=== PATIENT | male | born 1960 | race Caucasian/White ===

== ENCOUNTER 2020-02-28 16:05 | Inpatient (IN) | payer OTHER, SELFPAY ==
[2020-02-28] VITALS (21 sets, daily range): BP systolic 114–122; BP diastolic 68–74; PULSE 73–86; RESP 14–24; TEMP 36.7; O2SAT 99–100
--- NOTE | ~2020-02-28 | XR_ITS ---
EXAMINATION: XR chest 1V portable EXAM DATE: 03/01/2020 08:19 INDICATION: Shortness of breath. TECHNIQUE: Portable AP frontal chest x-ray was obtained. Comparison is made to prior examination from 02/28/2020. FINDINGS: There is been significant interval improvement in previously seen abnormal reticulation. No confluent consolidation, pneumothorax or pleural effusion suspected. Cardiomediastinal silhouette is normal. There are no osseous abnormalities identified. IMPRESSION: Improved pulmonary edema. Reviewed, dictated and finalized at location A. TER HELPER IMPRESSION: Improved pulmonary edema.
--- NOTE | ~2020-02-28 | XR_ITS ---
EXAMINATION: XR surgery orthopedic DATE: 02/29/2020 16:21 INDICATION: Left hip intramedullary fixation. TECHNIQUE: 4 fluoroscopic images of the proximal left femur were obtained during procedure performed by Dr. Montalvo. Radiologist was not present for the imaging or procedure. The amount of fluoroscopy t pura used during this procedure was 0.8 minutes. COMPARISON: 02/28/2020 FINDINGS: Fallopian reduction and internal fixation of the intratrochanteric fracture of the proximal left femu r with antegrade intramedullary vin, femoral neck dynamic compression screw and distal interlocking s crew fixation. Alignment appears near-anatomic. Mild osteoarthritis at the left hip. IMPRESSION: 1. Near-anatomic alignment post ORIF of an intratrochanteric fracture of the proximal left femur. Reviewed, dictated and finalized at location A. TS DOCTOR IMPRESSION: 1. Near-anatomic alignment post ORIF of an intratrochanteric fracture of the pr oximal left femur.
--- NOTE | ~2020-02-28 | CT_ITS ---
EXAMINATION: CT brain wo con DATE: 02/28/2020 18:17 INDICATION: Alcohol abuse and acute hyponatremia. Fall. TECHNIQUE: Computed tomography (CT) of the head was performed without intravenous contrast. Sagittal and coronal reconstructions were performed. The mA was adjusted according to patient size. Iterative reconstruction technique was employed. The dose-length product was 681.00 mGy-cm. COMPARISON: None FINDINGS: No fracture. No acute intracranial hemorrhage, acute infarction or abnormal extra axial fluid collect ion. There is moderate scattered white matter hypoattenuation consistent with chronic small vessel is chemic disease. Symmetric prominence of the sulci consistent with mild age-appropriate diffuse cerebr al volume loss. Ventricles are normal and symmetric. No mass/mass effect. Mild mucosal thickening the bilateral ethmoid sinuses. The orbits, paranasal sinuses and mastoid air cells are normal. Intracran ial calcified cerebral atherosclerosis is noted. IMPRESSION: 1. No fracture or acute intracranial process. 2. Age-related changes including mild diffuse volume loss and moderate scattered white matter hypoatt enuation consistent with chronic small vessel ischemic disease. Reviewed, dictated and finalized at location A. PAINTER IMPRESSION: 1. No fracture or acute intracranial process. 2. Age-related changes including mild diffuse volume loss and moderate scattere d white matter hypoattenuation consistent with chronic small vessel ischemic di sease.
--- NOTE | ~2020-02-28 | XR_ITS ---
EXAMINATION: XR chest 1V portable DATE: 02/28/2020 17:07 INDICATION: Surgical risk factor of smoking. Left hip fracture post fall. TECHNIQUE: frontal view of the chest was obtained. COMPARISON: None FINDINGS: There is a diffuse increased interstitial pattern throughout both lungs greatest in the left lower giovanny ng zone where there are also few peripheral Edwardo B-lines consistent with mild pulmonary edema. Coup le small calcified nodules in the right lower lung zone and calcified right hilar lymph nodes consist ent with old granulomatous disease. Mild linear discoid atelectasis at both lung bases. No pleural ef fusion or pneumothorax. The cardiomediastinal silhouette is normal. IMPRESSION: 1. Bilateral diffuse increased interstitial pattern consistent with mild pulmonary edema. Differentia l would include less likely pneumonia or chronic interstitial fibrosis. Reviewed, dictated and finalized at location A. E PATCH MOLDER IMPRESSION: 1. Bilateral diffuse increased interstitial pattern consistent with mild pulmon josephine edema. Differential would include less likely pneumonia or chronic intersti tial fibrosis.
--- NOTE | ~2020-02-28 | XR_ITS ---
XR hip LT 2V w AP pelvis 02/28/2020 16:54 Indication: Left hip pain after fall Procedure: 4 views left hip including AP pelvis Comparison: No prior studies for comparison. Findings: There is a displaced left femoral intertrochanteric fracture with varus angulation. No othe r fracture is identified. Pelvic rings are intact. Impression: 1: Displaced left femoral intertrochanteric fracture with varus angulation. Reviewed, dictated and finalized at location B. PATIONAL MEDICINE SPECIALIST Impression: 1: Displaced left femoral intertrochanteric fracture with varus angulation.
--- NOTE | 2020-02-28 16:43 | ED.GENADULT ---
HPI - General Adult General Chief complaint: Extremity Injury, Lower Stated complaint: Left Hip Pain Time Seen by Provider: 02/28/20 16:26 Source: RN notes reviewed History of Present Illness HPI narrative: Patient presents to emergency department from home for left hip pain. Patient states that approximate hour prior to arrival he was walking down his steps when he twisted his ankle in the last year causing him to fall onto his left hip. He states he had pain in that hip since since that time and unable to walk on the left hip denies striking his head or any other injury. Denies chest pain shortness of breath or numbness or tingling of the extremities. Patient request no pain medication at this time Related Data Home Medications Medication Instructions Recorded Confirmed No Home Medications 10/05/19 Allergies Allergy/AdvReac Type Severity Reaction Status Date / Time No Known Allergies Allergy Verified 10/05/19 08:40 Review of Systems Review of Systems: Narrative: Gen.: Denies fevers or chills Eyes: Denies eye pain or visual change ENT: Denies congestion Respiratory: Denies shortness of breath or cough CV: Denies chest pain or palpitations GI: Denies abdominal pain nausea, emesis or diarrhea Musculoskeletal: See HPI Neuro: Denies numbness, tingling, weakness or focal weakness Skin: Denies rash Except as documented, all other systems reviewed and negative [facility] Past Medical History Medical History (Updated 02/28/20 @ 18:11 by Madhu Kovasc DO) Patient denies significant medical history Social History Social History Smoking packs per day: 1 Smoking cigarettes per day: 20.0 Years smoked: 40 Smoking pack-years: 40.00 Smoking status: Current every day smoker Alcohol intake: current Drinks per week: 21 Substance use: current Substance use type: marijuana Gender identity (if verbalized by the patient): Male Agree to blood products: Yes Exam Narrative: Exam Narrative: APPEARANCE: No acute distress, nontoxic, resting in bed EYES: EOMI HEENT: Normocephalic, atraumatic, OMM Neck: Supple, no midline tenderness palpation RESPIRATORY: No respiratory distress Clear to auscultation bilaterally with no rhonchi wheezing or rales. CARDIOVASCULAR: Regular rate and rhythm without murmurs rubs or gallops. ABDOMINAL: Soft, nontender, nondistended, no rebound or guarding MUSCULOSKELETAl: Moves all extremities. No clubbing, cyanosis or edema. Tender palpation of the left lateral and anterior hip pain with any movement of the hip, no tenderness of the knee or ankle dorsalis pedis pulse 2+ bilaterally left lower extremity neurovascular intact NEURO: Awake and alert x 3. Following commands, speech normal, no focal deficits SKIN:: Warm, dry. No rashes lesions or abrasions PSYCHIATRIC: Normal affect/mood, Course Course Emergency Course: Patient states he drinks approximately 6 beers a day states he drank 4 beers earlier today Discussed Dr. Montalvo presentation work-up. Agrees with consult at this time Discussed with BRIANNA Velazquez presentation work-up agrees admission at this time discussed the sodium requests 0.9 normal saline at 100 mL an hour with repeat sodium in 3 hours and placement in imu Discussed with patient and family results of workup and diagnosis. Discussed need for admission. Patient and family understand and agree to current treatment plan Vital Signs Vital signs: Vital Signs Temperature 98.1 F 02/28/20 16:27 Pulse Rate 73 02/28/20 16:27 Respiratory Rate 14 02/28/20 16:27 Blood Pressure 116/70 02/28/20 16:27 Pulse Oximetry 99 02/28/20 16:27 Temperature 98.1 F 02/28/20 16:27 Pulse Rate 73 02/28/20 16:27 Respiratory Rate 14 02/28/20 16:27 Blood Pressure 116/70 02/28/20 16:27 Pulse Oximetry 99 02/28/20 16:27 Medical Decision Making Vital Signs Vital Signs: Vital Signs Temperature 98
--- NOTE | 2020-02-28 16:55 | PC.NURSE ---
patient here after ground level fall today outside. see triage notes. alert. oriented. no change in patient's condition since triage completed. c/o left hip pain. denies head injury or LOC. has no noted open wounds or deformities. left leg does appear shortened but not rotated. (+)PMS. assessments documented. SL inserted. patient on monitor. call light in reach.
--- NOTE | 2020-02-28 16:55 | ECG_ITS ---
Measurements Intervals [place] Rate: 82 P: 66 [place]: 245 QRS: 42 QRSD: 100 T: 45 QT: 382 QTc: 446 Interpretive Statements SINUS RHYTHM WITH FIRST DEGREE AV BLOCK EARLY PRECORDIAL R/S TRANSITION BASELINE ARTIFACT- I, III, AVL ABNORMAL ECG Electronically Signed On 02-28-2020 19:52:34 POWERHOUSE LABORER by Eduar Bond D.O.
[2020-02-28 17:39] LABS: Basophils Absolute Auto 0.1 K/mm3 (0.0-0.1); Basophils Percent Auto 1.2 % (0.2-1.2); Eosinophils Absolute Auto 0.1 K/mm3 (0-0.3); Eosinophils Percent Auto 0.5 % (0-4.4); Hematocrit 35.3 % (42.0-52.0); Immature Granulocyte Absolute 0.04 K/mm3 (0.00-0.031); Immature Granulocyte Percent A 0.4 % (0-0.5); Lymphocytes Absolute Auto 1.42 K/mm3 (0.9-3.2); Lymphocytes Percent Auto 14.8 % (18.3-44.2); Mean Corpuscular HGB Conc 36.8 g/dl (32-36); Mean Corpuscular Hemoglobin 31.9 pg (26-34); Mean Corpuscular Volume 86.7 fl (80-100); Mean Platelet Volume 8.9 fl (7.4-10.4); Monocytes Absolute Auto 0.7 K/mm3 (0.1-0.6); Neutrophils Absolute Auto 7.3 K/mm3 (1.3-6.7); Neutrophils Percent Auto 76.1 % (45.5-73.1); Platelet Count Result 308 k/mm3 (150-375); Red Blood Count 4.07 M/mm3 (4.6-6.20); Red Cell Distribution Width 11.5 % (11.5-14.5); White Blood Count 9.6 K/mm3 (4.5-10.0)
[2020-02-28 17:50] LABS: Prothrombin Time 14.1 Seconds (11.1-14.7)
[2020-02-28 17:51] LABS: Partial Thromboplastin Time 35.6 SECONDS (22.3-36.8)
[2020-02-28 17:56] LABS: Ethanol 81 mg/dL (<10)
[2020-02-28 18:01] LABS: Alanine Aminotransferase 17 U/L (4-50); Albumin Level 3.9 g/dL (3.5-5.1); Alkaline Phosphatase 83 U/L (38-126); Anion Gap 11 mmol/L (8-16); Aspartate Amino Transferase 31 U/L (17-59); Bilirubin,Total 0.5 mg/dL (0.2-1.3); Blood Urea Nitrogen 4 mg/dL (9-20); Calcium 8.6 mg/dL (8.4-10.2); Carbon Dioxide 21 mmol/L (22-30); Chloride 85 mmol/L (98-107); Estimated CRCL calculation 93 ml/min; Estimated Glomerular Filt Rate > 60; Glucose 89 mg/dL (75-110); Potassium 4.2 mmol/L (3.4-5.0); Sodium 117 mmol/L (137-145)
[2020-02-28] MEDS: MORPHINE SULFATE (*CRX) 2 MG/ML INJ IV PUSH (18:25)
[2020-02-28] MEDS: THIAMINE HCL 200 MG/2 ML VIAL 100 MG IV PUSH (19:20)
[2020-02-28] MEDS: SODIUM CHLORIDE 0.9% IV 1,000 ML 100 ML IV CONT ×2 (19:20→22:01)
--- NOTE | 2020-02-28 19:35 | PC.NURSE ---
patient medicated as ordered. patient aware he has left hip fracture. MD at bedside. aware that he will be admitted upstairs for orthopedic consult. does state that he drinks 6 beers per day . states he only had 4 today. ETOH drawn and pending. alert. oriented.
--- NOTE | 2020-02-28 19:45 | PC.NURSE ---
2nd dose of pain meds given. patient updated. waiting for bed assignment upstairs. 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 has call light in reach. (+)PMS LLE. slipper socks on per patient request. warm blankets given.
[2020-02-28] MEDS: HYDROmorphone HCL INJ (*CRX) 1 MG/ML SYR IV PUSH ×2 (19:47→22:00)
--- NOTE | 2020-02-28 21:00 | PM.IMHP ---
H&P: HPI History of Present Illness Date/Time: 02/28/20 21:00 Chief complaint: Left hip pain after fall. Narrative: Greg Leslie is a 59-year-old male smoker who presented to the emergency department earlier today via EMS for evaluation of left hip pain after falling down the steps. Not long prior to arrival he lost his footing going down a step and twisted his left ankle a bit, causing him to fall and strike his left hip on the corner of a concrete step. He had immediate pain in the hip and was unable to get himself up without help of the gentleman that was standing next to him. He was found to have a left hip fracture and is being admitted in this setting. His sodium was significantly low at 117 and with further questioning he does admit to can consuming about 6 to 7 beers each day. It sounds as though he may be consuming most of his calories in the form of alcohol. To his knowledge she has no history of hyponatremia. At the time my evaluation he has some discomfort in the left hip but it has improved after receiving Dilaudid. He denies paresthesias, skin color, and temperature changes distal to the fracture site. He also denies headache, confusion, nausea, and vomiting. Review of Systems Review of Systems: Narrative: Twelve systems were reviewed with pertinent positives and negatives as per HPI. No fever, chills, or sweats. No recent cold or flu symptoms. He denies known exposure to those positive for COVID-19. He has a chronic ?smoker's cough? which is nonproductive and unchanged. No exertional chest pain or shortness of breath. He denies orthopnea, PND, and lower extremity edema. He has never had signs or symptoms of alcohol withdrawal or withdrawal seizures. Except as documented, all other systems were reviewed and are negative. [facility] Past Medical History Medical History (Updated 02/29/20 @ 00:04 by Caroline Brewster PA-C) Alcohol abuse Tobacco abuse Surgical History Surgical History (Updated 02/28/20 @ 23:54 by Caroline Brewster PA-C) No history of previous surgery Family History Family History (Updated 02/28/20 @ 23:55 by Caroline Brewster PA-C) Other Hypertension Social History Social History (Updated 02/29/20 @ 00:02 by Caroline Brewster PA-C) Social History: Surrogate decision maker: Tony Leslie, brother. Code status: Full code. Smoking packs per day: 1.5 Smoking cigarettes per day: 30.0 Years smoked: 30 Smoking pack-years: 45.00 Smoking status: Current every day smoker Tobacco type: cigarettes Additional smoking assessment comments: Patient has smoked up to 2 packs of cigarettes a day. Alcohol intake: current Drinks per week: 42 Substance use: never Substance use type: marijuana Additional living arrangements comments: Lives in his own home in [place]. Additional occupation/education comments: [employer]. Gender identity (if verbalized by the patient): Male Spiritual care concerns: No Agree to blood products: Yes Meds Home Medications and Allergies Home Medications Medication Instructions Recorded Confirmed Type No Home Medications 10/05/19 02/28/20 History Allergies Allergy/AdvReac Type Severity Reaction Status Date / Time No Known Allergies Allergy Verified 10/05/19 08:40 Vital Signs Vital Signs - 24 hr 02/28/20 16:27 02/28/20 16:28 02/28/20 16:30 Temperature 98.1 F Pulse Rate 74 73 78 Respiratory Rate 19 23 H 20 Blood Pressure 116/70 116/70 Pulse Oximetry 100 100 100 02/28/20 16:31 02/28/20 16:54 02/28/20 17:31 Temperature Pulse Rate 74 82 81 Respiratory Rate 19 16 24 H Blood Pressure 120/68 114/68 Pulse Oximetry 100 99 100 02/28/20 17:32 02/28/20 18:04 02/28/20 18:39 Temperature Pulse Rate 86 85 74 Respiratory Rate 21 H 20 21 H Blood Pressure Pulse Oximetry 100 100 100 Exam Narrative: Exam Narrative: General: Thin male in bed in no distress. Weight: 59.1 kg.
--- NOTE | 2020-02-28 21:35 | PC.NURSE ---
report given to RN on 2nd floor.patient aware of room number and transfer upstairs.
[2020-02-28 21:40] LABS: Anion Gap 6 mmol/L (8-16); Blood Urea Nitrogen 3 mg/dL (9-20); Calcium 8.2 mg/dL (8.4-10.2); Carbon Dioxide 23 mmol/L (22-30); Chloride 89 mmol/L (98-107); Estimated CRCL calculation 110 ml/min; Estimated Glomerular Filt Rate > 60; Glucose 95 mg/dL (75-110); Potassium 4.2 mmol/L (3.4-5.0); Sodium 118 mmol/L (137-145)
--- NOTE | 2020-02-28 22:42 | ADMGEN ---
This patient, Greg Leslie, was admitted to IMU Room 206-02. Patient/family oriented to hospital policies and general routines including ID bracelet, bed and alarms, visiting hours, pain management, procedures, bathroom and other care routines, personal items, smoking policy, room service/diet, and visiting hours. Information on how to activate the Rapid Response Team has been discussed. Patient/Family are encouraged to report perceived risks to care and to ask questions if they do not understand what they are told or what they should do.
[2020-02-29] VITALS (18 sets, daily range): BP systolic 106–131; BP diastolic 64–84; PULSE 68–106; RESP 12–24; TEMP 36–37.1; O2SAT 95–100
[2020-02-29] MEDS: HYDROmorphone HCL INJ (*CRX) 1 MG/ML SYR IV PUSH ×6 (01:14→23:39)
[2020-02-29 04:48] LABS: Creatinine Urine 35.7 mg/dL
[2020-02-29 05:16] LABS: Sodium Urine Random 57 meq/L
[2020-02-29 05:41] LABS: Basophils Absolute Auto 0.1 K/mm3 (0.0-0.1); Basophils Percent Auto 0.9 % (0.2-1.2); Eosinophils Percent Auto 0.7 % (0-4.4); Hematocrit 34.6 % (42.0-52.0); Hemoglobin 12.7 g/dL (14.0-18.0); Immature Granulocyte Absolute 0.02 K/mm3 (0.00-0.031); Immature Granulocyte Percent A 0.4 % (0-0.5); Lymphocytes Absolute Auto 0.82 K/mm3 (0.9-3.2); Lymphocytes Percent Auto 14.9 % (18.3-44.2); Mean Corpuscular HGB Conc 36.7 g/dl (32-36); Mean Corpuscular Hemoglobin 31.8 pg (26-34); Mean Corpuscular Volume 86.5 fl (80-100); Mean Platelet Volume 9.4 fl (7.4-10.4); Monocytes Absolute Auto 0.6 K/mm3 (0.1-0.6); Monocytes Percent Auto 10.1 % (2.6-8.5); Platelet Count Result 299 k/mm3 (150-375); Red Cell Distribution Width 11.5 % (11.5-14.5); White Blood Count 5.5 K/mm3 (4.5-10.0)
[2020-02-29] MEDS: ONDANSETRON INJ 4 MG/2 ML VIAL IV PUSH (06:02)
[2020-02-29 06:04] LABS: INR 1.1; Prothrombin Time 14.9 Seconds (11.1-14.7)
[2020-02-29 06:05] LABS: Partial Thromboplastin Time 41.2 SECONDS (22.3-36.8)
[2020-02-29 06:09] LABS: Alanine Aminotransferase 16 U/L (4-50); Albumin Level 3.6 g/dL (3.5-5.1); Alkaline Phosphatase 93 U/L (38-126); Anion Gap 8 mmol/L (8-16); Aspartate Amino Transferase 29 U/L (17-59); Bilirubin,Total 1.1 mg/dL (0.2-1.3); Blood Urea Nitrogen 4 mg/dL (9-20); Calcium 8.7 mg/dL (8.4-10.2); Carbon Dioxide 23 mmol/L (22-30); Chloride 88 mmol/L (98-107); Estimated CRCL calculation 110 ml/min; Estimated Glomerular Filt Rate > 60; Glucose 92 mg/dL (75-110); Magnesium 1.8 mg/dL (1.6-2.3); Potassium 4.1 mmol/L (3.4-5.0); Sodium 119 mmol/L (137-145)
--- NOTE | 2020-02-29 07:27 | PM.CNOR ---
Assessment and Plan Assessment and plan (1) Displaced intertrochanteric fracture of left femur: Onset Date: 02/28/20 Qualifiers: Encounter type: initial encounter Fracture type: closed Qualified Code(s): S72.142A - Displaced intertrochanteric fracture of left femur, initial encounter for closed fracture Code(s): S72.142A - Displaced intertrochanteric fracture of left femur, initial encounter for closed fracture Status: Acute Assessment and Plan: 59-year-old gentleman who fell yesterday and sustained left hip intertrochanteric fracture. History of tobacco and alcohol use. Discussed nonoperative and operative treatment options with the patient. Risks and benefits of each as well as alternatives were reviewed. All of the patient's questions were answered. The risks of surgery reviewed including but not limited to: Neurovascular damage, wound complication, infection, blood clot, pulmonary embolus, stroke, myocardial infarction, and anesthetic risks up to and including . Continued pain and possible dysfunction were explained. Specific risks of the procedure including later recurrence of deformity. No guarantees were offered. If hardware used, discussed risk of failure/ breakage and possible need for removal. If complications occur, the patient understands the need for further treatment, possible further surgery. Patient verbalizes understanding and wishes to proceed. Low sodium noted on laboratory testing. Patient will need medical clearance. Discussed risks associated with tobacco and alcohol use. PLAN: Left hip fracture reduction with internal fixation with intramedullary hip screw. Plan to proceed when medically stable. (2) Alcohol abuse: Code(s): F10.10 - Alcohol abuse, uncomplicated Status: Acute (3) Tobacco abuse: Code(s): Z72.0 - Tobacco use Status: Acute History of Present Illness HPI Consult date: 02/29/20 Requesting physician: Madhu Kovacs DO Consult reason: fracture (Left hip) Chief complaint: Left hip pain after fall. Narrative: 59-year-old gentleman with a history of alcohol use who fell yesterday onto his left side. Evaluated in the emergency room and found to have left hip fracture. Admitted for further treatment. Complains of left hip pain. Denies head neck or back injury at the time his fall. Denies any other pain. Denies numbness or tingling in the left leg. Sharp pain whenever he moves leg. He has not had any prior problems with the hip or leg. Normally independent ambulator. He lives at home alone. Review of Systems Constitutional: Constitutional: Denies fever(s) Eyes: Eyes: Denies blurry vision ENT: Reports Normal hearing present Cardiovascular: Cardiovascular: Denies chest pain and Denies dyspnea Respiratory: Respiratory: Denies dyspnea and Denies wheezing Gastrointestinal: Gastrointestinal: Denies abdominal pain Genitourinary: Genitourinary: Denies urinary urgency Musculoskeletal: Musculoskeletal: Reports as per HPI and Denies numbness Integumentary/Breasts: Skin/Breast: Denies changing lesions and Denies sores Neurologic: Reports Normal hearing present, Denies behavioral changes, Denies confusion, Denies numbness and Denies convulsions Psychiatric: Psychiatric: Denies behavioral changes, Denies confusion and Denies hallucinations Endocrine: Endocrine: Denies heat intolerance Hematologic/Lymphatic: Hematologic/Lymphatic: Denies easy bleeding Allergic/Immunologic: Allergic/Immunologic: Denies wheezing [facility] Past Medical History Medical History Alcohol abuse Tobacco abuse Surgical History Surgical History No history of previous surgery Family History Family History Other Hypertension Social History Social History (Reviewed 02/29/20 @
[2020-02-29 07:37] LABS: Free T4 Free Thyroxine Reflex 1.22 ng/dL (0.78-2.19)
[2020-02-29 08:55] LABS: Total Triiodothyronine (T3) 0.94 NG/ML (0.97-1.69)
[2020-02-29 09:21] LABS: Sodium 119 mmol/L (137-145)
--- NOTE | 2020-02-29 09:37 | WPDANESEPP ---
Anes - Eval Pre Procedure Procedure: Operation Date: 02/29/20 14:30 Proposed Procedures p Left Intramedullary Hip Screw - James Montalvo MD Date/Time: 02/29/20 09:37 Pre Op Diagnosis: Left hip pain after fall. Patient Data Age: 59 Gender: M Height: 1.75 m Weight: 59.1 kg Last Vital Signs Temp 36.6 C 02/29/20 08:00 Pulse 91 02/29/20 08:00 Resp 12 02/29/20 08:00 BP 117/67 02/29/20 08:00 Pulse Ox 97 02/29/20 08:00 Allergies Allergy/AdvReac Type Severity Reaction Status Date / Time No Known Allergies Allergy Verified 10/05/19 08:40 Home Medications Medication Instructions Recorded Confirmed Type No Home Medications 10/05/19 02/28/20 History Laboratory Tests 02/28/20 02/28/20 02/28/20 17:28 17:28 17:28 WBC 9.6 K/mm3 K/mm3 (4.5-10.0) RBC 4.07 M/mm3 L M/mm3 (4.6-6.20) Hgb 13.0 g/dL L g/dL (14.0-18.0) Hct 35.3 % L % (42.0-52.0) MCV 86.7 fl fl (80-100) MCH 31.9 pg pg (26-34) MCHC 36.8 g/dl H g/dl (32-36) RDW 11.5 % % (11.5-14.5) Plt Count 308 k/mm3 k/mm3 (150-375) MPV 8.9 fl fl (7.4-10.4) Immature Gran % (Auto) 0.4 % % (0-0.5) Neut % (Auto) 76.1 % H % (45.5-73.1) Lymph % (Auto) 14.8 % L % (18.3-44.2) [place] % (Auto) 7.0 % % (2.6-8.5) Eos % (Auto) 0.5 % % (0-4.4) Baso % (Auto) 1.2 % % (0.2-1.2) Lymph # (Auto) 1.42 K/mm3 K/mm3 (0.9-3.2) [place] # (Auto) 0.7 K/mm3 H K/mm3 (0.1-0.6) Eos # (Auto) 0.1 K/mm3 K/mm3 (0-0.3) Baso # (Auto) 0.1 K/mm3 K/mm3 (0.0-0.1) Abs Immat Gran (auto) 0.04 K/mm3 H K/mm3 (0.00-0.031) Absolute Neuts (auto) 7.3 K/mm3 H K/mm3 (1.3-6.7) Absolute Nucleated RBC 0.0 K/mm3 K/mm3 (0.0-0.012) Nucleated RBC % 0.0 % % (0.0-0.2) PT 14.1 Seconds Seconds (11.1-14.7) INR 1.0 APTT 35.6 SECONDS SECONDS (22.3-36.8) Sodium 117 mmol/L L* mmol/L (137-145) Potassium 4.2 mmol/L mmol/L (3.4-5.0) Chloride 85 mmol/L L mmol/L (98-107) Carbon Dioxide 21 mmol/L L mmol/L (22-30) Anion Gap 11 mmol/L mmol/L (8-16) BUN 4 mg/dL L mg/dL (9-20) Creatinine 0.60 mg/dL L mg/dL (0.7-1.3) Estim Creat Clear Calc 93 ml/min ml/min Estimated GFR > 60 (59 - ) Glucose 89 mg/dL mg/dL (75-110) Serum Osmolality Calcium 8.6 mg/dL mg/dL (8.4-10.2) Magnesium Total Bilirubin 0.5 mg/dL mg/dL (0.2-1.3) AST 31 U/L U/L (17-59) ALT 17 U/L U/L (4-50) Alkaline Phosphatase 83 U/L U/L (38-126) Total Protein 7.0 g/dL g/dL (6.3-8.2) Albumin 3.9 g/dL g/dL (3.5-5.1) TSH (Reflex) Free T4 Total T3 Urine Osmolality Ur Random Sodium Urine Creatinine Ethyl Alcohol Blood Type Antibody Screen 02/28/20 02/28/20 02/28/20 17:28 17:28 21:07 WBC RBC Hgb Hct MCV MCH MCHC RDW Plt Count MPV Immature Gran % (Auto) Neut % (Auto) Lymph % (Auto) [place] % (Auto) Eos % (Auto) Baso % (Auto) Lymph # (Auto) [place] # (Auto) Eos # (Auto) Baso # (Auto) Abs Immat Gran (auto) Absolute Neuts (auto) Absolute Nucleated RBC Nucleated RBC % PT INR APTT Sodium 118 mmol/L L* mmol/L (137-145) Potassium 4.2 mmol/L mmol/L (3.4-5.0) Chloride 89 mmol/L L mmo
[2020-02-29 12:22] LABS: Sodium 121 mmol/L (137-145)
--- NOTE | 2020-02-29 13:46 | WPDHPUPDATE1 ---
History and Physical Update Update Date/Time: 02/29/20 13:46 History and Physical has been reviewed, including an updated exam of the patient. There are NO changes in the patient's condition. Risks, benefits, and alternatives have been discussed and questions answered. Patient agrees to proceed with procedure.
--- NOTE | 2020-02-29 14:24 | P.PNAN_ITS ---
Anes - Eval Final PreProcedure Day of Procedure 02/29/20 14:24 Patient weight: normal Heart: regular rate and rhythm Lungs: clear to auscultation Airway: Mallampati scale class II Neurological: alert and oriented Last oral intake: >/= 8 hours ASA classification: III Emergent: no Anesthetic plan: proceed Anesthesia type and monitoring: general ETT and standard monitoring Informed Consent: The patient's anesthetic plan and its attendant risks and b enefits were discussed with the patient/family/POA. Questions were solicited and answers provided to the satisfaction of the patient/family/POA.
--- NOTE | 2020-02-29 14:38 | PM.IMPN ---
Progress Note: A&P Assessment and Plan (1) Displaced intertrochanteric fracture of left femur: Onset Date: 02/28/20 Qualifiers: Encounter type: initial encounter Fracture type: closed Qualified Code(s): S72.142A - Displaced intertrochanteric fracture of left femur, initial encounter for closed fracture Code(s): S72.142A - Displaced intertrochanteric fracture of left femur, initial encounter for closed fracture Status: Acute Assessment and Plan: Pt is going for surgery today, for left displaced intertrochanteric fracture (2) Hyponatremia: Code(s): E87.1 - Hypo-osmolality and hyponatremia Status: Acute Assessment and Plan: Pt is on iv fluids sodium is 121, continue to monitor likely secondary to chronic alcoholism, ct head reviewed (3) Alcohol abuse: Code(s): F10.10 - Alcohol abuse, uncomplicated Status: Acute Assessment and Plan: Watch for DT, pt has ativan prn on board pt has thiamine and iv fluids (4) Tobacco abuse: Code(s): Z72.0 - Tobacco use Status: Acute Assessment and Plan: Pt has nicotine patch (5) Abnormal chest x-ray: Code(s): R93.89 - Abnormal findings on diagnostic imaging of other specified body structures Status: Acute Assessment and Plan: Rpt CXR joe Am watch for any hypoxia Subjective Date/time seen: 02/29/20 14:38 Interval history: 59-year-old male smoker who presented to the emergency department earlier today via EMS for evaluation of left hip pain after falling down the steps. pt has a history of hyponatremia, alcohol and tobacco abuse. pt should be going for Left hip fracture reduction with internal fixation with intramedullary hip screw for, Displaced intertrochanteric fracture of left hip today. Review of Systems Review of Systems: All systems reviewed & are unremarkable except as noted in HPI and below Exam Const: General: cooperative and healthy appearing; No in distress Nutritional Appearance: overweight Orientation/consciousness: oriented to person HENMT: Head: normal to inspection Resp: Effort & Inspection: no respiratory distress Auscultation: no rhonchi and no wheezes Cardio: Rate: regular rate Rhythm: regular rhythm GI: Inspection: normal to inspection GI Palp: No abdominal tenderness, No Guarding due to palpation present (GI) and No Hepatomegaly present Auscultation: normal bowel sounds Neuro: General: oriented to person Extrem: Other: shortener rotated left hip ttp over hip joint Objective Data Vital Signs Vital Signs: Vital Signs - 24 hr 02/28/20 16:27 02/28/20 16:28 02/28/20 16:30 Temperature 36.7 C Pulse Rate 74 73 78 Respiratory Rate 19 23 H 20 Blood Pressure 116/70 116/70 Pulse Oximetry 100 100 100 02/28/20 16:31 02/28/20 16:54 02/28/20 17:31 Temperature Pulse Rate 74 82 81 Respiratory Rate 19 16 24 H Blood Pressure 120/68 114/68 Pulse Oximetry 100 99 100 02/28/20 17:32 02/28/20 18:04 02/28/20 18:39 Temperature Pulse Rate 86 85 74 Respiratory Rate 21 H 20 21 H Blood Pressure Pulse Oximetry 100 100 100 02/28/20 20:11 02/28/20 20:15 02/28/20 20:16 Temperature Pulse Rate 76 76 76 Respiratory Rate 17 18 18 Blood Pressure 120/74 Pulse Oximetry 100 100 100 02/28/20 20:17 02/28/20 20:30 02/28/20 20:31 Temperature Pulse Rate 77 75 75 Respiratory Rate 17 20 19 Blood Pressure 122/72 Pulse Oximetry 100 100 100 02/28/20 20:46 02/28/20 21:00 02/28/20 21:15 Temperature Pulse Rate 79 76 74 Respiratory Rate Blood Pressure Pulse Oximetry 02/28/20 21:30 02/28/20 21:45 02/28/20 23:45 Temperature Pulse Rate 74 76 76 Respiratory Rate 19 Blood Pressure Pulse Oximetry 100 02/29/20 00:00 02/29/20 02:00 02/29/20 04:00 Temperature 36.0 C L Pulse Rate 78 72 85 Respiratory Rate 18 Blood Pressure 122/64 Pulse Oximetry 97 02/29/20 06:00 02/29/20 08:00 12/0
[2020-02-29] MEDS: TRANEXAMIC ACID 1,000 MG/10 ML AMPUL 1000 MG IV PUSH (14:50)
[2020-02-29] MEDS: LACTATED RINGERS 1,000 ML 30 ML IV CONT (15:07)
--- NOTE | 2020-02-29 15:09 | P.OP_ITS ---
Procedure Note - Detailed Date of procedure: 02/29/20 Pre-op diagnosis: Left hip pain after fall. Left hip IT fx, closed Post-op diagnosis: same Procedure performed: LT hip [facility] Description of procedure: INDICATIONS: This is an 59-year-old -man who fell sustaining a left hip intertrochanteric femur fracture. Indicated for reduction and intramedullary hip screw fixation, left hip. DESCRIPTION OF PROCEDURE: After informed consent the operative extremity was marked in the preoperative holding area. Patient received intravenous antibiotics. The patient was taken to the operative room, placed in the supine position, general anesthesia induced by the anesthesia team, and was placed on a fracture table with longitudinal traction applied to the left leg. The hip fracture was reduced to near anatomic position and verified with image intensification. A time-out was performed confirming the patient, site of the surgery and plan. The left lower extremity was prepped and draped sterilely from the knee to the iliac crest region using a ChloraPrep skin solution. The right leg was flexed out of the field. Incision was made just proximal to greater trochanter down to the subcutaneous tissues. Hemostasis controlled with electrocautery. Blunt dissection through the fascia to the tip of the greater trochanter. A starter awl was placed at the tip of the greater trochanter into the medullary canal of the femur. This was checked with image intensification and was in good position. Intramedullary guide vin positioned. A one-step hand reaming done proximally. Intramedullary canal was reamed with a 12.5 millimeter flexible reamer. Neck angle selected off of preoperative radiographs templating. 125 degree 11.5mm X 21.5cm Nail opened on the back table and assembled. This was then inserted over the guide vin to the correct depth. Guide vin removed. Lag screw was then placed with a stab incision over the lateral femur using a 10 blade knife. Blunt dissection down to the lateral side of the bone. Soft tissue protectors placed. Guide pin placed in the center center position of the femoral head and measured. millimeter x 10.5 millimeter lag screw placed to correct depth and verified with image intensification. Traction released from the leg and compression of the fracture performed with the external compression device. Proximal locking screw placed. Distal locking of the nail then performed. Stab incision made lateral distal thigh. Blunt dissection down lateral side of the femur. Soft tissue protector placed. Femur drilled from lateral to medial through the distal nail. Distal femur measured and the appropriate size screw placed. Image intensification confirmed the placement through the locking hole. Final image intensification confirmed reduction of the fracture and placement of the hardware. Wounds then thoroughly irrigated with antibiotic solution. Fascia repaired with 0 Vicryl interrupted suture. Subcutaneous tissue repaired with 00 Vicryl interrupted suture and skin repaired with je. Sterile dressings applied. Patient then awoke from anesthesia, extubated, taken to recovery room stable condition. All sponge, needle and instrument counts correct at the end the case. Implants: [employer] Natural nail 125deg, 11.5 mm diameter, 21.5cm length, 100 mm lag screw, 35mm distal locking screw Anesthesia: GETA Surgeon: James Montalvo MD Commissary Production Supervisor: 1st Commissary Production Supervisor Estimated blood loss (mL): 100 Drains: No Packing: No Pathology: none sent Complications: None Condition: stable Disposition: PACU
[2020-02-29] MEDS: ceFAZolin 2 GM/D5W 50 ML 2 GM/50 ML BAG IVPB (15:17)
--- NOTE | 2020-02-29 17:09 | SUR.PHASEI ---
PT AWAKE AND ALERT. DENIES PAIN OR NAUSEA.
--- NOTE | 2020-02-29 17:16 | SUR.PHASEI ---
PT AWAKE AND ALERT. STATES MILD PAIN AT 5/10 TO LT HIP NOW. PT STATES HE DOES NOT WANT ANY PAIN MEDICINE AT THIS TIME.
--- NOTE | 2020-02-29 17:35 | SUR.PHASEI ---
CALLED DR MONTERO. TRANSFER ORDER STATES MED/SURG. PT TO RETURN TO IMU.
[2020-02-29 18:45] LABS: Sodium 120 mmol/L (137-145)
[2020-02-29] MEDS: DOCUSATE SODIUM 100 MG CAPSULE PO (19:01)
[2020-02-29] MEDS: RIVAROXABAN 10 MG TABLET PO (19:02)
[2020-02-29] MEDS: FAMOTIDINE 20 MG TABLET PO (20:27)
[2020-02-29 21:25] LABS: Sodium 122 mmol/L (137-145)
[2020-02-29] MEDS: SODIUM CHLORIDE 0.9% IV 1,000 ML 75 ML IV CONT (22:33)
[2020-03-01] VITALS (9 sets, daily range): BP systolic 112–132; BP diastolic 63–74; PULSE 99–111; RESP 16–20; TEMP 36.1–37.2; O2SAT 97–100
[2020-03-01 00:52] LABS: Sodium 122 mmol/L (137-145)
[2020-03-01 04:19] LABS: Sodium 121 mmol/L (137-145)
[2020-03-01] MEDS: HYDROcodone/acetaminophen (*CRX) 7.5-325 MG TABLET 1 TAB PO ×4 (05:26→16:39)
[2020-03-01 06:58] LABS: Basophils Absolute Auto 0.1 K/mm3 (0.0-0.1); Basophils Percent Auto 1.5 % (0.2-1.2); Eosinophils Percent Auto 0.1 % (0-4.4); Hematocrit 34.1 % (42.0-52.0); Hemoglobin 12.3 g/dL (14.0-18.0); Immature Granulocyte Absolute 0.04 K/mm3 (0.00-0.031); Immature Granulocyte Percent A 0.5 % (0-0.5); Lymphocytes Absolute Auto 0.83 K/mm3 (0.9-3.2); Lymphocytes Percent Auto 9.4 % (18.3-44.2); Mean Corpuscular HGB Conc 36.1 g/dl (32-36); Mean Corpuscular Hemoglobin 31.9 pg (26-34); Mean Corpuscular Volume 88.6 fl (80-100); Mean Platelet Volume 9.3 fl (7.4-10.4); Monocytes Absolute Auto 0.8 K/mm3 (0.1-0.6); Monocytes Percent Auto 9.1 % (2.6-8.5); Neutrophils Percent Auto 79.4 % (45.5-73.1); Platelet Count Result 272 k/mm3 (150-375); Red Blood Count 3.85 M/mm3 (4.6-6.20); Red Cell Distribution Width 11.9 % (11.5-14.5); White Blood Count 8.8 K/mm3 (4.5-10.0)
[2020-03-01 07:09] LABS: Anion Gap 12 mmol/L (8-16); Blood Urea Nitrogen 4 mg/dL (9-20); Calcium 8.4 mg/dL (8.4-10.2); Carbon Dioxide 19 mmol/L (22-30); Chloride 91 mmol/L (98-107); Estimated CRCL calculation 93 ml/min; Estimated Glomerular Filt Rate > 60; Glucose 80 mg/dL (75-110); Potassium 3.9 mmol/L (3.4-5.0); Sodium 122 mmol/L (137-145)
[2020-03-01] MEDS: THIAMINE HCL 100 MG TABLET PO (08:51)
[2020-03-01] MEDS: DOCUSATE SODIUM 100 MG CAPSULE PO (08:51)
[2020-03-01] MEDS: FAMOTIDINE 20 MG TABLET PO ×2 (08:51→19:59)
[2020-03-01] MEDS: FOLIC ACID 1 MG TABLET PO (08:51)
[2020-03-01 09:25] LABS: Sodium 122 mmol/L (137-145)
--- NOTE | 2020-03-01 09:45 | PM.PNORT ---
Progress Note: A&P Assessment and Plan (1) Displaced intertrochanteric fracture of left femur: Onset Date: 02/28/20 Qualifiers: Encounter type: subsequent encounter Fracture type: closed Fracture healing: with routine healing Qualified Code(s): S72.142D - Displaced intertrochanteric fracture of left femur, subsequent encounter for closed fracture with routine healing Code(s): S72.142A - Displaced intertrochanteric fracture of left femur, initial encounter for closed fracture Status: Acute Assessment and Plan: postoperative day 1. Status post left hip intramedullary fixation. Patient awake and alert. Eating and voiding. Complaints of left hip pain. We have discussed the p.r.n. orders for pain medication. He is going to notify his nurse when he requires pain medicine. PT/OT with weight-bearing as tolerated left leg. DVT prophylaxis with Xarelto. Disposition based on ability with independence. Subjective Subjective Date/Time Seen: 03/01/20 09:00 Patient awake and alert. Complains of left hip and left thigh pain. Denies numbness or tingling. Able to eat and void. Exam Const: General: No in distress or confusion Orientation/consciousness: patient oriented x3 and No confusion HENMT: Head: normal to inspection, normocephalic and atraumatic Eyes: Conjunctivae: conjunctivae normal Sclera: sclerae normal Resp: Effort & Inspection: normal respiratory effort and no audible wheezes Neuro: General: patient oriented x3 and No confusion Extrem: Left lower extremity: hip/thigh ( Dressing clean dry and intact left hip. Mild swelling. No erythema. ) Details: other ( Muscle compartments soft), ankle Details: normal ROM ( able to flex and extend the ankle, negative Homans sign) and foot Details: normal to inspection, toes with normal ROM, vascular exam Details: dorsalis pedis pulse present and normal capillary refill and motor-sensory exam light-touch normal in all toes; no tenderness Psych: Affect: normal affect Objective Data Vital Signs Vital Signs: Vital Signs - 24 hr 02/29/20 10:00 02/29/20 12:50 02/29/20 16:27 Temperature 98.8 F 97.4 F L Pulse Rate 95 98 95 Pulse Rate [Left Pedal (Dorsalis Pedis)] Respiratory Rate 16 24 H Blood Pressure 122/72 131/77 Pulse Oximetry 99 100 02/29/20 16:40 02/29/20 17:07 02/29/20 17:20 Temperature 97.7 F Pulse Rate 95 94 94 Pulse Rate [Left Pedal (Dorsalis Pedis)] Respiratory Rate 18 16 18 Blood Pressure 128/84 123/82 127/75 Pulse Oximetry 100 95 97 02/29/20 17:54 02/29/20 18:00 02/29/20 20:00 Temperature 97.3 F L 97.4 F L Pulse Rate 102 H 100 100 Pulse Rate [Left Pedal (Dorsalis Pedis)] 99 Respiratory Rate 12 15 Blood Pressure 131/73 106/67 Pulse Oximetry 98 99 02/29/20 21:00 02/29/20 21:07 02/29/20 22:00 Temperature 97.2 F L 97 F L Pulse Rate 103 H 100 102 H Pulse Rate [Left Pedal (Dorsalis Pedis)] Respiratory Rate 15 15 Blood Pressure 122/70 118/75 Pulse Oximetry 99 99 99 02/29/20 23:33 03/01/20 00:00 03/01/20 01:52 Temperature 97 F L Pulse Rate 106 H 104 H 111 H Pulse Rate [Left Pedal (Dorsalis Pedis)] 104 H Respiratory Rate 16 16 Blood Pressure 112/74 112/74 Pulse Oximetry 98 98 03/01/20 04:00 03/01/20 06:00 03/01/20 08:00 Temperature 97.2 F L 96.9 F L Pulse Rate 111 H 103 H 102 H Pulse Rate [Left Pedal (Dorsalis Pedis)] 101 H Respiratory Rate 16 20 Blood Pressure 112/63 115/71 Pulse Oximetry 97 98 Intake/Output Intake/Output: Intake & Output 02/27/20 02/28/20 02/29/20 03/01/20 23:59 23:59 23:59 23:59 Intake Total 1000 1300 330 Output Total 2190 920 Balance 1000 -260 590 Meds/Results Medications: Active Medications Generic Name Dose Route Start Last Admin Trade Name Freq PRN Reason Stop Dose Admin Acetaminophen 650 mg 02/29/20 17:39 Acetaminophen 325 Mg Tablet PO Q6H PRN Mild Pain (1-3) or Fever Hydrocodone Bitart/Acetamin
[2020-03-01] MEDS: HYDROmorphone HCL INJ (*CRX) 1 MG/ML SYR IV PUSH (09:48)
--- NOTE | 2020-03-01 11:39 | PCSTNOTE ---
Please refer to the Bedside Swallow Evaluation in the EMR.
[2020-03-01] MEDS: NICOTINE (*PBKC) 21 MG PATCH 1 PATCH TRANSDERM (12:22)
[2020-03-01 12:28] LABS: Sodium 123 mmol/L (137-145)
[2020-03-01] MEDS: SODIUM CHLORIDE 0.9% IV 1,000 ML 75 ML IV CONT (13:07)
--- NOTE | 2020-03-01 14:16 | PM.IMPN ---
Progress Note: A&P Assessment and Plan (1) Displaced intertrochanteric fracture of left femur: Onset Date: 02/28/20 Qualifiers: Encounter type: subsequent encounter Fracture healing: with routine healing Fracture type: closed Qualified Code(s): S72.142D - Displaced intertrochanteric fracture of left femur, subsequent encounter for closed fracture with routine healing Code(s): S72.142A - Displaced intertrochanteric fracture of left femur, initial encounter for closed fracture Status: Acute Assessment and Plan: Pt is sp Left hip fracture reduction with internal fixation with intramedullary hip screw. POst op day 1 doing well with physical theraphy hopeful DC joe Am with home health and therapy at home. (2) Hyponatremia: Code(s): E87.1 - Hypo-osmolality and hyponatremia Status: Acute Assessment and Plan: Pt is on iv fluids sodium is 123, continue to monitor likely secondary to chronic alcoholism, ct head reviewed (3) Alcohol abuse: Code(s): F10.10 - Alcohol abuse, uncomplicated Status: Acute Assessment and Plan: Watch for DT, pt has ativan prn on board pt has thiamine and iv fluids (4) Tobacco abuse: Code(s): Z72.0 - Tobacco use Status: Acute Assessment and Plan: Pt has nicotine patch (5) Abnormal chest x-ray: Code(s): R93.89 - Abnormal findings on diagnostic imaging of other specified body structures Status: Acute Assessment and Plan: Cxr looks better today, continue care Subjective Date/time seen: 03/01/20 14:16 Interval history: 59-year-old male smoker who presented to the emergency department earlier today via EMS for evaluation of left hip pain after falling down the steps. pt has a history of hyponatremia, alcohol and tobacco abuse. pt is sp Left hip fracture reduction with internal fixation with intramedullary hip screw, post op day 1, pt is doing well at home him to medical floor Review of Systems Review of Systems: All systems reviewed & are unremarkable except as noted in HPI and below Exam Const: General: cooperative and healthy appearing; No in distress Nutritional Appearance: overweight Orientation/consciousness: oriented to person HENMT: Head: normal to inspection Resp: Effort & Inspection: no respiratory distress Auscultation: no rhonchi and no wheezes Cardio: Rate: regular rate Rhythm: regular rhythm GI: Inspection: normal to inspection Auscultation: normal bowel sounds Neuro: General: oriented to person Extrem: Other: left hip with occlusive dressing good pulses and good sensation in the left foot Objective Data Vital Signs Vital Signs: Vital Signs - 24 hr 02/29/20 16:27 02/29/20 16:40 02/29/20 17:07 Temperature 36.3 C L 36.5 C Pulse Rate 95 95 94 Pulse Rate [Left Pedal (Dorsalis Pedis)] Respiratory Rate 24 H 18 16 Blood Pressure 131/77 128/84 123/82 Pulse Oximetry 100 100 95 02/29/20 17:20 02/29/20 17:54 02/29/20 18:00 Temperature 36.3 C L Pulse Rate 94 102 H 100 Pulse Rate [Left Pedal (Dorsalis Pedis)] Respiratory Rate 18 12 Blood Pressure 127/75 131/73 Pulse Oximetry 97 98 02/29/20 20:00 02/29/20 21:00 02/29/20 21:07 Temperature 36.3 C L 36.2 C L Pulse Rate 100 103 H 100 Pulse Rate [Left Pedal (Dorsalis Pedis)] 99 Respiratory Rate 15 15 Blood Pressure 106/67 122/70 Pulse Oximetry 99 99 99 02/29/20 22:00 02/29/20 23:33 03/01/20 00:00 Temperature 36.1 C L 36.1 C L Pulse Rate 102 H 106 H 104 H Pulse Rate [Left Pedal (Dorsalis Pedis)] 104 H Respiratory Rate 15 16 16 Blood Pressure 118/75 112/74 112/74 Pulse Oximetry 99 98 98 03/01/20 01:52 03/01/20 04:00 03/01/20 06:00 Temperature 36.2 C L Pulse Rate 111 H 111 H 103 H Pulse Rate [Left Pedal (Dorsalis Pedis)] 101 H Respiratory Rate 16 Blood Pressure 112/63 Pulse Oximetry 97 03/01/20 08:00 03/01/20 10:00 03/01/20 12:00 Temperature 36.1 C L Pulse
[2020-03-01] MEDS: RIVAROXABAN 10 MG TABLET PO (16:39)
--- NOTE | 2020-03-01 17:41 | PC.NURSE ---
This patient, Greg Leslie, was transferred to [facility] on 03/01/20 at 1720. Personal belongings sent with patient. Report given to [facility]. Appropriate documentation sent with patient.
--- NOTE | 2020-03-01 17:48 | PC.NURSE ---
This patient, Greg Leslie, was received from IMU on 03/01/20 at 1748. Patient/family oriented to unit policies and routines
[2020-03-01 18:00] LABS: Sodium 120 mmol/L (137-145)
[2020-03-01 20:29] LABS: Sodium 120 mmol/L (137-145)
--- NOTE | 2020-03-01 21:24 | PC.NURSE ---
AT 2037 PT ARRIVED IN BED FROM IMU WITH IV INTACT. TELE APPLIED. BED ALARM ACTIVATED.
[2020-03-02 00:24] LABS: Sodium 121 mmol/L (137-145)
[2020-03-02] MEDS: SODIUM CHLORIDE 0.9% IV 1,000 ML 50 ML IV CONT (03:55)
[2020-03-02 05:37] VITALS: BP 135/79; PULSE 102; RESP 20; TEMP 36.6; O2SAT 100
[2020-03-02 05:38] LABS: Albumin Level 3.3 g/dL (3.5-5.1); Anion Gap 6 mmol/L (8-16); Blood Urea Nitrogen 4 mg/dL (9-20); Calcium 8.4 mg/dL (8.4-10.2); Carbon Dioxide 26 mmol/L (22-30); Chloride 90 mmol/L (98-107); Estimated CRCL calculation 93 ml/min; Estimated Glomerular Filt Rate > 60; Glucose 107 mg/dL (75-110); Phosphorus 2.9 mg/dL (2.5-4.5); Potassium 3.8 mmol/L (3.4-5.0); Sodium 122 mmol/L (137-145)
[2020-03-02] MEDS: HYDROcodone/acetaminophen (*CRX) 7.5-325 MG TABLET 1 TAB PO (07:15)
[2020-03-02] MEDS: FOLIC ACID 1 MG TABLET PO (08:25)
[2020-03-02] MEDS: DOCUSATE SODIUM 100 MG CAPSULE PO (08:26)
[2020-03-02] MEDS: NICOTINE (*PBKC) 21 MG PATCH 1 PATCH TRANSDERM (08:26)
[2020-03-02] MEDS: FAMOTIDINE 20 MG TABLET PO (08:26)
[2020-03-02] MEDS: THIAMINE HCL 100 MG TABLET PO (10:10)
--- NOTE | 2020-03-02 12:25 | PM.DS ---
DS: Admitting Diagnosis Admitting Diagnosis Admitting Diagnosis: Left hip pain after fall. DS: Discharge Diagnosis Discharge Diagnosis (1) Displaced intertrochanteric fracture of left femur: Onset Date: 02/28/20 Qualifiers: Encounter type: subsequent encounter Fracture healing: with routine healing Fracture type: closed Qualified Code(s): S72.142D - Displaced intertrochanteric fracture of left femur, subsequent encounter for closed fracture with routine healing Code(s): S72.142A - Displaced intertrochanteric fracture of left femur, initial encounter for closed fracture Status: Acute Assessment and Plan: Pt is sp Left hip fracture reduction with internal fixation with intramedullary hip screw. Post op day 2 doing well with physical therapy hopeful DC today with home health and therapy at home. (2) Hyponatremia: Code(s): E87.1 - Hypo-osmolality and hyponatremia Status: Acute Assessment and Plan: Pt is on iv fluids, sodium is 122, continue to monitor likely secondary to chronic alcoholism, ct head reviewed Pt advised to drink water and follow with PCP. (3) Alcohol abuse: Code(s): F10.10 - Alcohol abuse, uncomplicated Status: Acute Assessment and Plan: No DTs in hospital. Pt stable for discharge thiamine. (4) Tobacco abuse: Code(s): Z72.0 - Tobacco use Status: Acute Assessment and Plan: Pt has nicotine patch adviced to quit smoking (5) Abnormal chest x-ray: Code(s): R93.89 - Abnormal findings on diagnostic imaging of other specified body structures Status: Acute Assessment and Plan: Cxr looks better today, no cough no sob. pt is stable for dischrage DS: Summary Time Spent with Patient Time attestation: Total time spent providing and/or coordinating discharge services:40 minutes on day of dischrage Exam Const: General: cooperative and healthy appearing; No in distress Nutritional Appearance: overweight Orientation/consciousness: oriented to person HENMT: Head: normal to inspection Resp: Effort & Inspection: no respiratory distress Auscultation: no rhonchi and no wheezes Cardio: Rate: regular rate Rhythm: regular rhythm GI: Inspection: normal to inspection Auscultation: normal bowel sounds Neuro: General: oriented to person Extrem: Other: left hip with gauze dressing on, good pulses and good sensation in the left foot DS: Data Data Completed and Pending Labs on day of discharge: Labs from last 24 hours 03/02/20 03/02/20 03/02/20 04:53 04:53 04:53 Sodium Potassium Chloride Carbon Dioxide Anion Gap BUN Creatinine Estim Creat Clear Calc Estimated GFR Glucose Calcium Phosphorus Total Protein Pending Albumin Pending Rectf-4-Zleokaddu Pending Owhff-9-Wilkoxbmh Pending Exlp-7-Txrqsevn Pending Ryds-2-Wfupswml Pending Gamma Globulins Pending Abnorm Protein Band 1 Pending Abnorm Protein Band 3 Pending PEP Interpretation Pending Random Cortisol 12.80 Ur Random Creatinine U Random Total Protein Protein/Creatinin Ratio Urine Albumin U Jhwml-1-Rydavxmj U Xjvdj-6-Fliuneis U Beta Globulin U Gamma Globulin U Abnormal Prot Band 1 U Abnormal Prot Band 2 U Abnormal Prot Band 3 Urine PEP Interpret [place]/Lambda Ratio Pending Free [place] Light Chains Pending Free Lambda Light Chain Pending 03/02/20 03/02/20 03/02/20 04:53 03:52 00:03 Sodium 122 L 121 L Potassium 3.8 Chloride 90 L Carbon Dioxide 26 Anion Gap 6 L BUN 4 L Creatinine 0.60 L Estim Creat Clear Calc 93 Estimated GFR > 60 Glucose 107 Calcium 8.4 Phosphorus 2.9 Total Protein Albumin 3.3 L Dcmve-5-Jmeeqwwxf Cfxlm-3-Jwpcjkruv Jenv-7-Bxziwrgp Jwew-5-Zzhngnge Gamma Globulins Abnorm Protein Band 1 Abnorm Protein Band 3 PEP Interpretation
--- NOTE | 2020-03-02 13:11 | PM.CNNEP ---
Assessment and Plan Assessment and plan (1) Hyponatremia: Code(s): E87.1 - Hypo-osmolality and hyponatremia Status: Acute Assessment and Plan: unclear acutiy or chronicity (but suspect a chronic component) acute issues include pain and pain medications chronic issues include excessive alcohol intake, extensive smoking history and possible relative dehydration urine electrolytes noted TSH and cortisol okay SPE/UPE/urine + serum osmo pending asymptomatic at this time on fluid restriction follow trend of repeat sodium levels (2) Displaced intertrochanteric fracture of left femur: Onset Date: 02/28/20 Qualifiers: Encounter type: subsequent encounter Fracture healing: with routine healing Fracture type: closed Qualified Code(s): S72.142D - Displaced intertrochanteric fracture of left femur, subsequent encounter for closed fracture with routine healing Code(s): S72.142A - Displaced intertrochanteric fracture of left femur, initial encounter for closed fracture Status: Acute Assessment and Plan: s/p open reduction with internal fixation with intramedullary hip screw PT/OT as outlined Orthopedics following Discussed case with Dr. Diaz earlier today -- since otherwise asymptomatic with regard to his hyponatremia, would not be opposed to discharge assuming he has good outpatient follow-up to monitor repeat sodium levels and follow-up on pending testing. I encouraged alcohol cessation and advised regular oral/food intake as well. Will continue to follow History of Present Illness Reason for Consult Consult date: 03/02/20 Reason for consult: hyponatremia Chief Complaint Chief complaint: Left hip pain after fall. History of Present Illness Narrative: The patient is a 59-year-old male with a past medical history as outlined below who presented to the emergency department via EMS for evaluation of left hip pain after falling down some steps. The patient apparently lost his footing going down a step and twisted his left ankle a bit, causing him to fall and strike his left hip on the corner of a concrete step. He had immediate pain in the hip and was unable to get himself up without help of the gentleman that was standing next to him. EMS was called and he was subsequently brought to the ER for further evaluation. Work-up and evaluation in the ER demonstrated a left hip fracture by imaging studies which led to his hospitial admission. Orthopedic Surgery was consulted and he underwent a left hip intramedullary fixation and tolerated the procedure reasonably well. Other that expected post-operative pain, he has been doing well post-operatively in terms of PT/OT, eating, drinking...etc. Renal consultation was requested after was noted that his admission labs also were significant for hyponatremia with a sodium level of 117. he reports never being told that he had an issue or problem with his sodium level Linda denies any type of neurological symptoms with regard to headache, confusion, nausea, vomiting for numbness, tingling,. His only real symptom at this time is pain at his left hip given his recent operative intervention. It should be noted though however that he admits to significant alcohol intake anywhere from 6-7 beers a day and freely admits that he drinks more beer than eating regular food or drinking water. Currently, his sodium levels up to 122 by labs this morning and he has been receiving gentle IV fluid hydration since admission.. Review of Systems Review of Systems: Narrative: As per HPI. [facility] Past Medical History Medical History (Updated 03/01/20 @ 09:48 by James Montalvo MD) Alcohol abuse Hyponatremia Knee pain, chronic Tobacco abuse Surgical History Surgical History No history of previous surgery Family History Family History (Reviewed 02/29/20 @ 07:28 by James Murillo
[2020-03-03 06:36] LABS: Osmolality, Urine 233 mOsm/kg (50-1200)
[2020-03-06 17:28] LABS: Kappa\\Lambda Light Chains 1.11 (0.26-1.65)
[2020-03-06 22:41] LABS: Albumin 3.1 g/dL (3.8-4.8); Alpha 1 Globulin 0.5 g/dL (0.2-0.3); Alpha 2 Globulin 0.8 g/dL (0.5-0.9); Beta 1 Globulin 0.4 g/dL (0.4-0.6); Gamma Globulin 1.1 g/dL (0.8-1.7); Protein, Total 6.1 g/dL (6.1-8.1)
[2020-03-07 16:44] LABS: Creatinine, Random Urine 83 mg/dL (20-320); Total Protein/Creatinine Ratio 193 mg/g creat (22-128)
== END 2020-03-02 16:00 | disposition home health service (06) | DRG 481 ==
LOC: ANHED 18:11 → ANHIMU 19:46 → ANH2MED 03-01 17:46
PROVIDERS: Family Medicine; Internal Medicine Nephrology; Nurse Practitioner; Orthopaedic Surgery; Physician Assistant; Admitting Provider Family Medicine; Emergency Provider Emergency Medicine; PCP Internal Medicine; Visit Provider Family Medicine
PROC: 0QS736Z Reposition Left Upper Femur with Intramedullary Internal Fixation Device, Percutaneous Approach (ICD-10-PCS; CPT 27245; principal; 2020-02-29 14:30)
DX: S72.142A Displaced intertrochanteric fracture of left femur, initial encounter for closed fracture (principal); E87.1 Hypo-osmolality and hyponatremia; W10.9XXA Fall (on) (from) unspecified stairs and steps, initial encounter; R93.89 Abnormal findings on diagnostic imaging of other specified body structures; F17.210 Nicotine dependence, cigarettes, uncomplicated; F10.10 Alcohol abuse, uncomplicated; Z28.21 Immunization not carried out because of patient refusal
CPT/HCPCS: 36415; 70450; 71045; 73502; 80048; 80053; 80069; 80307; 82533; 82570; 83735; 83883; 83930; 83935; 84155; 84156; 84165; 84166; 84295; 84300; 84439; 84443; 84480; 85025; 85610; 85730; 86850; 86900; 86901; 92610; 93005; 96361; 96374; 96375; 96376; 97110; 97116; 97161; 97165; 97530; 97535; 99285; A9270; C1713; G0378; J0330; J0690; J1170; J2250; J2270; J2370; J2405; J2704; J3010; J3411; J7030; J7120

== ENCOUNTER → 2021-02-15 09:00 | Outpatient (CLI) | payer OTHER, SELFPAY ==
--- NOTE | ~2021-02-15 | MR_ITS ---
EXAMINATION: MR knee LT wo con DATE: 02/15/2021 09:46 INDICATION: Left knee pain TECHNIQUE: Magnetic resonance imaging (MRI) of the left knee was performed without intravenous contra st. Sequences included coronal PD-weighted FSE, coronal PD-weighted FS FSE, sagittal T2-weighted FSE , sagittal PD-weighted FS FSE and axial PD weighted fat saturated FSE. COMPARISON: Left knee radiographs dated 05/28/2020 FINDINGS: Medial compartment: Medial meniscus is normal. Partial-thickness chondral fissure without degenerative subchondral change s along the lateral margin of the central weightbearing medial femoral condyle. Lateral compartment: Lateral meniscus is normal. Small region of deep chondral fissuring with minimal subarticular signal change at the posterior margin of the lateral tibial plateau. Patellofemoral compartment: Deep chondral ulceration with underlying marrow signal change at the cephalad aspect of the apical ri dge. There is additional partial thickness chondral fissuring involving greater than 50% the cartilag e thickness at the central to inferior aspect of the medial and lateral patellar facets. Small region of shallow chondral fissuring without degenerative subchondral changes at the lateral aspect of the medial trochlea. Ligaments and tendons: Anterior and posterior cruciate ligaments are normal. The medial collateral ligament and fibular montserrat ateral ligament complex are normal. The extensor mechanism is normal. The visualized medial and later al hamstring tendons as well as the iliotibial band are normal. Fluid: Physiologic amount of fluid in the joint space. No loose osteochondral bodies identified. Osseous/other: There is diffuse subtle increased signal throughout the cortex in the metaphyseal regions of the dist al femur and proximal tibia with linear subcortical sclerosis and with a horizontal reinforcement arley es evident on the prior radiograph which can be seen with osteopenia/osteoporosis. There is marrow ed drake surrounding a couple small approximately 5 mm lobular regions of hyperintense fat saturating fat in the anterior metaphyseal region of the distal femur suspicious for small bone infarcts. There are couple ill-defined regions of additional nonspecific marrow edema in the proximal metaphyseal region of the tibia. No fracture or other pathologic marrow replacing process. IMPRESSION: 1. Cortical and marrow signal changes in the distal femur and proximal tibia suggestive of osteopenia /osteoporosis with small region likely bone infarct in the distal femur. 2. Mild osteoarthritis with small regions of moderate grade chondral malacia in the medial compartmen t and moderate and high-grade chondromalacia at the patellofemoral compartment Reviewed, dictated and finalized at location A. [employer] IMPRESSION: 1. Cortical and marrow signal changes in the distal femur and proximal tibia cabello ggestive of osteopenia/osteoporosis with small region likely bone infarct in th e distal femur. 2. Mild osteoarthritis with small regions of moderate grade chondral malacia in the medial compartment and moderate and high-grade chondromalacia at the burger lofemoral compartment
== END ==
PROVIDERS: Visit Provider Nurse Practitioner Family
DX: M25.562 Pain in left knee (principal); M17.12 Unilateral primary osteoarthritis, left knee; M94.262 Chondromalacia, left knee
CPT/HCPCS: 73721

== ENCOUNTER 2021-05-26 12:52 | Emergency (ER) | payer OTHER, SELFPAY ==
--- NOTE | ~2021-05-26 | CT_ITS ---
EXAMINATION: CT brain wo con DATE: 05/26/2021 14:00 INDICATION: Head injury. Loss of consciousness. TECHNIQUE: Computed tomography (CT) of the head was performed without intravenous contrast. The mA wa s adjusted according to patient size. Iterative reconstruction technique was employed. The dose-lengt h product was 605.33 mGy-cm. COMPARISON: Head CT 02/28/2020 FINDINGS: There are scattered areas of low attenuation in the cerebral white matter. There is no intr acranial hemorrhage, acute infarction, or abnormal intracranial mass lesion. The ventricles are bob l in size. There is mucosal thickening in the paranasal sinuses. The orbits are normal. The mastoid a ir cells are normal. IMPRESSION: 1. Stable moderate nonspecific cerebral white matter disease, which likely represents chronic small v essel ischemic disease. Reviewed, dictated and finalized at location A. HER AIDE IMPRESSION: 1. Stable moderate nonspecific cerebral white matter disease, which likely repr esents chronic small vessel ischemic disease.
--- NOTE | ~2021-05-26 | CT_ITS ---
EXAMINATION: CT cervical spine wo con DATE: 05/26/2021 14:00 INDICATION: Head injury. TECHNIQUE: Computed tomography (CT) of the cervical spine was performed without intravenous contrast. Automated exposure control and iterative reconstruction technique were employed. The dose-length pro duct was 272.14 mGy-cm. COMPARISON: None FINDINGS: The visualized portions of the lung apices demonstrate emphysema. There is 3 degrees dextro curvature of cervical spine. There is mild kyphosis of cervical spine. Vertebral body heights are nor mal. There is mildly decreased disc height from C3-C4 through C6-C7. The following disc levels are sp ecifically discussed: C2-C3: There is no uncovertebral joint osteoarthritis. There is mild left facet joint osteoarthritis. There is no neural foraminal stenosis. There is no central canal stenosis. C3-C4: There is severe bilateral uncovertebral joint osteoarthritis. There is mild bilateral facet roman int osteoarthritis. There is mild right and moderate left neural foraminal stenosis. There is mild ce ntral canal stenosis. C4-C5: There is severe bilateral uncovertebral joint osteoarthritis. There is moderate left facet max nt osteoarthritis. There is mild bilateral neural foraminal stenosis. There is mild central canal judy nosis. C5-C6: There is moderate right and severe left uncovertebral joint osteoarthritis. There is mild bila teral facet joint osteoarthritis. There is mild left neural foraminal stenosis. There is mild central canal stenosis. C6-C7: There is mild right and severe left uncovertebral joint osteoarthritis. There is mild bilatera l facet joint osteoarthritis. There is mild left neural foraminal stenosis. There is mild central can al stenosis. C7-T1: There is no uncovertebral joint osteoarthritis. There is severe bilateral facet joint osteoart hritis. There is no neural foraminal stenosis. There is no central canal stenosis. IMPRESSION: 1. No fracture. 2. Moderate cervical spondylosis. Reviewed, dictated and finalized at location A. D PROJECT MANAGER
[2021-05-26 12:54] VITALS: BP 153/88; PULSE 64; RESP 18; TEMP 36.1; O2SAT 100
--- NOTE | 2021-05-26 13:39 | ED.HEATRA ---
HPI - Head Injury General Chief complaint: Head Injury Stated complaint: head trauma Time Seen by Provider: 05/26/21 13:35 History of Present Illness HPI Narrative: 60-year-old male presents to the emergency room status post fall. Patient states that he tripped and fell in the kitchen, striking his head on the refrigerator. Unknown LOC. Presently denies any dizziness lightheadedness memory or concentration issues. Denies nausea vomiting. Denies visual or hearing changes. Denies neck pain. patient is not on anticoagulants Related Data Home Medications Medication Instructions Recorded Confirmed No Home Medications 05/26/21 05/26/21 Allergies Allergy/AdvReac Type Severity Reaction Status Date / Time No Known Allergies Allergy Verified 05/26/21 13:27 Review of Systems Review of Systems: CONSTITUTIONAL: Denies fever, chills, or sweats. EYES: Denies visual changes, redness, or discharge. ENT: Denies rhinorrhea, congestion, sore throat, or otalgia. CARDIOVASCULAR: Denies chest pain, palpitations, or edema. RESPIRATORY: Denies cough or dyspnea. GASTROINTESTINAL: Denies abdominal pain, nausea, vomiting, or diarrhea. GENITOURINARY: Denies dysuria or hematuria. SKIN: Reports abrasion to forehead. MUSCULOSKELETAL: Denies back pain, joint pain, or myalgia. NEUROLOGIC: Denies headache, numbness, dizziness, or weakness. PSYCHIATRIC: Denies anxiety or depression. [facility] Past Medical History Medical History Alcohol abuse Arthralgia of knee, left Arthritis of knee, left Chondromalacia, patella Hyponatremia Knee pain, chronic Left knee DJD Left knee pain Right knee DJD Tear of medial meniscus of left knee Tobacco abuse Surgical History Surgical History No history of previous surgery Family History Family History Other Hypertension Social History Social History Social History: Surrogate decision maker: Tony Leslie, brother. Code status: Full code. Smoking packs per day: 1.5 Smoking cigarettes per day: 30.0 Years smoked: 30 Smoking pack-years: 45.00 Tobacco type: cigarettes Additional smoking assessment comments: Patient has smoked up to 2 packs of cigarettes a day. Alcohol intake: current Drinks per week: 42 Substance use: never Substance use type: marijuana Additional living arrangements comments: Lives in his own home in [place]. Additional occupation/education comments: [employer]. Gender identity (if verbalized by the patient): Male Sexual Orientation (if Verbalized by the Patient): Straight or Heterosexual Spiritual care concerns: No Agree to blood products: Yes Exam Narrative: GENERAL: Well-appearing, well-nourished, and in no acute distress. HEAD: Normocephalic, atraumatic. EYES: PERRLA and EOMI. ENT: Nares clear, no rhinorrhea or epistaxis. Mucous membranes moist. Oropharynx without tonsillar hypertrophy exudate or other lesions. Bilateral TMs pearly chou nonbulging NECK: Supple. No adenopathy or masses. No carotid bruits or JVD CHEST: Clear to auscultation. No respiratory distress. No wheezes rales or rhonchi HEART: Regular rate and rhythm. No murmur heard. Normal peripheral pulses. ABDOMEN: Soft, nontender, nondistended, normal active bowel sounds. EXTREMITIES: Normal range of motion. No edema. SKIN: Warm, dry, no rash. 2 abrasions to forehead NEURO: No focal deficits. Alert and oriented x3. PSYCH: Normal mood and affect. Course Vital Signs Vital signs: Vital Signs Temperature 36.1 C L 05/26/21 12:54 Pulse Rate 64 05/26/21 12:54 Respiratory Rate 18 05/26/21 12:54 Blood Pressure 153/88 H 05/26/21 12:54 Pulse Oximetry 100 05/26/21 12:54 Temperature 36.1 C L 05/26/21 12:54 Pulse Rate 92
[2021-05-26 14:34] VITALS: BP 133/95; PULSE 92; RESP 16; O2SAT 100
== END 2021-05-26 14:40 | disposition home or self-care (01) ==
PROVIDERS: Emergency Provider Nurse Practitioner Family; PCP Internal Medicine
DX: S09.90XA Unspecified injury of head, initial encounter (principal); M22.40 Chondromalacia patellae, unspecified knee; M17.0 Bilateral primary osteoarthritis of knee; F17.210 Nicotine dependence, cigarettes, uncomplicated; W01.198A Fall on same level from slipping, tripping and stumbling with subsequent striking against other object, initial encounter
CPT/HCPCS: 70450; 72125; 99284

== ENCOUNTER 2021-05-28 11:58 | Observation (INO) | payer OTHER, SELFPAY ==
[2021-05-28] VITALS (21 sets, daily range): BP systolic 121–144; BP diastolic 78–93; PULSE 86–103; RESP 16–26; TEMP 36.8–37; O2SAT 97–100; BMI 22.1
--- NOTE | ~2021-05-28 | CT_ITS ---
EXAMINATION: CT diagnostic chest wo con DATE: 05/28/2021 12:58 INDICATION: Lung mass. Chest pain. TECHNIQUE: Computed tomography (CT) of the chest was performed without intravenous contrast. Automate d exposure control and iterative reconstruction technique were employed. Exam dose: 157.63 mGy-cm to sheyla exam DLP. COMPARISON: None FINDINGS: There is a 2.6 x 4.1 cm irregular spiculated left upper lobe mass consistent with lung carcinoma. Approximately 7 x 12 mm spiculated mass is noted in the right upper lobe. Up to 16 x 25 mm precarinal lymph node 7 x 13 mm aortopulmonary window node 6 x 9 mm prevascular lymph node. There is moderately severe bullous emphysema. Normal heart size. Coronary artery calcifications. No pericardial effusion. No thoracic aortic aneurysm. Normal morphology of the adrenal glands. Severe degenerative disc disease in lower cervical spine. No suspicious osteolytic or osteoblastic le sions. IMPRESSION: 2.6 x 4.1 cm left upper lobe carcinoma 7 x 12 mm speculated mass in the right upper lobe; consider PET/CT imaging Mediastinal lymphadenopathy, likely metastatic Moderately severe bullous emphysema Reviewed, dictated and finalized at Location [facility]. Reviewed, dictated and finalized at location A. T WORKER
--- NOTE | ~2021-05-28 | XR_ITS ---
EXAMINATION: XR chest 2V DATE: 05/28/2021 12:31 INDICATION: Epigastric abdominal pain. TECHNIQUE: Frontal and lateral views of the chest were obtained. COMPARISON: Chest single view 03/01/2020 FINDINGS: There is a mass in left upper lobe. There are lucencies and chronic interstitial opacities in the lungs, likely emphysema. No pleural effusion or pneumothorax. The heart size is normal. IMPRESSION: 1. Mass in left upper lobe suspicious for primary bronchogenic carcinoma. Chest CT with contrast is r ecommended. I called this result to Dr. Neal. 2. Emphysema. Reviewed, dictated and finalized at location A. ER IMPRESSION: 1. Mass in left upper lobe suspicious for primary bronchogenic carcinoma. Chest CT with contrast is recommended. I called this result to Dr. Neal. 2. Emphysema.
--- NOTE | ~2021-05-28 | CT_ITS ---
EXAMINATION: CT brain wo con DATE: 05/28/2021 12:40 INDICATION: Dizziness. TECHNIQUE: Computed tomography (CT) of the head was performed without intravenous contrast. The mA wa s adjusted according to patient size. Iterative reconstruction technique was employed. The dose-lengt h product was 605.33 mGy-cm. COMPARISON: Head CT 05/26/2021 FINDINGS: There are scattered areas of low attenuation in the cerebral white matter. There is no intr acranial hemorrhage, acute infarction, or abnormal intracranial mass lesion. The ventricles are bob l in size. The orbits are normal. There is mucosal thickening in the paranasal sinuses. The mastoid a ir cells are normal. IMPRESSION: 1. Stable moderate nonspecific cerebral white matter disease, which likely represents chronic small v essel ischemic disease. Reviewed, dictated and finalized at location A. SPECIALIST IMPRESSION: 1. Stable moderate nonspecific cerebral white matter disease, which likely repr esents chronic small vessel ischemic disease.
--- NOTE | ~2021-05-28 | MR_ITS ---
EXAMINATION: MR brain/brain stem wo con DATE: 05/29/2021 08:28 INDICATION: Lung cancer. Hyponatremia. TECHNIQUE: Magnetic resonance imaging (MRI) of the brain and brainstem was performed without intraven ous contrast. Sequences included sagittal and axial T1-weighted FSE, axial diffusion-weighted FS EPI, axial T2*-weighted GRE, axial T2-weighted FLAIR Propeller, sagittal FLAIR, and axial T2-weighted Pro peller. Apparent diffusion coefficient (ADC) maps were created. COMPARISON: Head CT 05/28/2021 FINDINGS: There are scattered areas of nonspecific increased T2-weighted signal intensity in the cere bral white matter and crystal. There is no intracranial hemorrhage, acute infarction, or abnormal intrac ranial mass lesion. The ventricles are normal in size. The paranasal sinuses are clear. The orbits ar e normal. There is mild mucosal thickening in the paranasal sinuses. IMPRESSION: 1. Moderate nonspecific cerebral white matter disease and pontine disease, which likely represents ch ronic small vessel ischemic disease. Reviewed, dictated and finalized at location A. TING SALES REPRESENTATIVE IMPRESSION: 1. Moderate nonspecific cerebral white matter disease and pontine disease, whic h likely represents chronic small vessel ischemic disease.
--- NOTE | 2021-05-28 12:02 | ECG_ITS ---
Measurements Intervals [place] Rate: 95 P: 57 ID: 230 QRS: 9 QRSD: 102 T: 44 QT: 337 QTc: 424 Interpretive Statements SINUS RHYTHM WITH FIRST DEGREE AV BLOCK ABNORMAL ECG COMPARED TO ECG 02/28/2020 18:07:20 NO SIGNIFICANT CHANGES Electronically Signed On 05-28-2021 14:07:40 UX ARCHITECT by Kip Lockwood M.D.
[2021-05-28 12:58] LABS: Basophils Absolute Auto 0.1 K/mm3 (0.0-0.1); Eosinophils Absolute Auto 0.1 K/mm3 (0-0.3); Eosinophils Percent Auto 1.4 % (0-4.4); Hematocrit 42.3 % (42.0-52.0); Hemoglobin 15.2 g/dL (14.0-18.0); Immature Granulocyte Absolute 0.06 K/mm3 (0.00-0.031); Immature Granulocyte Percent A 0.6 % (0-0.5); Lymphocytes Absolute Auto 1.69 K/mm3 (0.9-3.2); Lymphocytes Percent Auto 16.7 % (18.3-44.2); Mean Corpuscular HGB Conc 35.9 g/dl (32-36); Mean Corpuscular Hemoglobin 32.4 pg (26-34); Mean Corpuscular Volume 90.2 fl (80-100); Mean Platelet Volume 8.8 fl (7.4-10.4); Monocytes Percent Auto 9.9 % (2.6-8.5); Neutrophils Absolute Auto 7.1 K/mm3 (1.3-6.7); Neutrophils Percent Auto 70.4 % (45.5-73.1); Platelet Count Result 336 k/mm3 (150-375); Red Blood Count 4.69 M/mm3 (4.6-6.20); Red Cell Distribution Width 11.6 % (11.5-14.5); White Blood Count 10.1 K/mm3 (4.5-10.0)
--- NOTE | 2021-05-28 13:02 | ED.GENADULT ---
HPI - General Adult General Chief complaint: Chest Pain Stated complaint: heartburn Time Seen by Provider: 05/28/21 12:14 History of Present Illness HPI narrative: Patient is a 60-year-old male who presents ER with what he reports is acid reflux. Reports she has been having some epigastric discomfort since 4 AM with burning that goes up into his chest. Chest discomfort on left side. No exertional component. Has tried no medications. Denies nausea or vomiting. No fevers or chills or sweats. Reports regular tobacco and EtOH. Patient also reports that couple days ago he slipped and fell on ice striking his forehead. He reports he had loss of consciousness for couple of minutes. He is not on any blood thinners. He does report dizziness. It is not vertiginous. Reports otherwise healthy. Has not seen his PCP in 1 year. Related Data Home Medications Medication Instructions Recorded Confirmed No Home Medications 05/26/21 05/26/21 Allergies Allergy/AdvReac Type Severity Reaction Status Date / Time No Known Allergies Allergy Verified 05/28/21 12:26 Review of Systems Review of Systems: All systems reviewed & are unremarkable except as noted in HPI and below Constitutional: Constitutional: Denies chills, Denies fever(s) and Denies weakness Eyes: Eyes: Denies change in vision and Denies photophobia ENT: Reports dizziness, Denies nasal congestion and Denies sore throat Cardiovascular: Cardiovascular: Reports chest pain, Denies rapid heart rate and Denies radiating jaw, neck or arm pain Respiratory: Respiratory: Denies cough, Denies dyspnea and Denies wheezing Gastrointestinal: Gastrointestinal: Reports abdominal pain, Reports heartburn, Denies nausea and Denies vomiting Musculoskeletal: Musculoskeletal: Denies back pain and Denies muscle cramps Neurologic: Reports syncope, Denies headache(s), Denies focal weakness and Denies numbness PMFSH Past Medical History Medical History Alcohol abuse Arthralgia of knee, left Arthritis of knee, left Chondromalacia, patella Hyponatremia Knee pain, chronic Left knee DJD Left knee pain Right knee DJD Tear of medial meniscus of left knee Tobacco abuse Surgical History Surgical History No history of previous surgery Family History Family History Other Hypertension Social History Social History Social History: Surrogate decision maker: Tony Leslie, brother. Code status: Full code. Smoking packs per day: 1.5 Smoking cigarettes per day: 30.0 Years smoked: 30 Smoking pack-years: 45.00 Tobacco type: cigarettes Additional smoking assessment comments: Patient has smoked up to 2 packs of cigarettes a day. Alcohol intake: current Drinks per week: 42 Substance use: never Substance use type: marijuana Additional living arrangements comments: Lives in his own home in [place]. Additional occupation/education comments: [employer]. Gender identity (if verbalized by the patient): Male Sexual Orientation (if Verbalized by the Patient): Straight or Heterosexual Spiritual care concerns: No Agree to blood products: Yes Exam Narrative: GENERAL: Well-appearing, well-nourished, and in no acute distress. HEAD: Normocephalic, healing abrasions right forehead. 1.5 cm discolored skin lesion over the occipital parietal region midline that has dried blood. EYES: PERRL and EOMI. CHEST: Clear to auscultation. No respiratory distress. HEART: Regular rate and rhythm. Normal peripheral pulses. ABDOMEN: Soft, nontender, nondistended. EXTREMITIES: Normal range of motion. No edema. SKIN: Warm, dry, no rash. NEURO: Alert and oriented x3. PSYCH: Normal mood and affect. Course Course Emergency Course: Patient informed
[2021-05-28 13:07] LABS: Prothrombin Time 12.3 Seconds (11.1-14.7)
[2021-05-28 13:08] LABS: Partial Thromboplastin Time 35.5 SECONDS (22.3-36.8)
[2021-05-28 13:16] LABS: Alanine Aminotransferase 21 U/L (4-50); Albumin Level 4.5 g/dL (3.5-5.1); Alkaline Phosphatase 122 U/L (38-126); Anion Gap 11 mmol/L (8-16); Aspartate Amino Transferase 32 U/L (17-59); Bilirubin,Total 1.2 mg/dL (0.2-1.3); Blood Urea Nitrogen 5 mg/dL (9-20); Calcium 8.8 mg/dL (8.4-10.2); Carbon Dioxide 20 mmol/L (22-30); Chloride 87 mmol/L (98-107); Estimated CRCL calculation 119 ml/min; Estimated Glomerular Filt Rate > 60; Glucose 111 mg/dL (65-110); Lipase 70 U/L (23-300); Potassium 4.2 mmol/L (3.4-5.0); Sodium 118 mmol/L (137-145)
[2021-05-28 13:21] LABS: Troponin I < 0.012 ng/mL (0.000-0.034)
[2021-05-28 15:35] LABS: Troponin I < 0.012 ng/mL (0.000-0.034)
--- NOTE | 2021-05-28 15:36 | PM.IMHP ---
H&P: HPI History of Present Illness Date/Time: PATIENT IS ADMITTED UNDER OBSERVATION STATUS 05/28/21 15:36 Chief Complaint: Acid reflux Narrative: 60yo male with alcohol abuse, tobacco abuse and hyponatremia here for acid reflux and found to have a sodium of 118 and a lung mass. Patient was hospitalized here in February 2020 for left hip pain after a fall. He was found to had a left hip intratrochanteric femur fracture and underwent reduction and intramedullary hip screw fixation to the left hip on 02/29/20. His sodium on admission at that time was 117 and by the time of discharge, his sodium had climbed to 122. Nephrology did see the patient and felt that this was probably more of a chronic issue (dehydration, alcohol abuse) with may be acute overlay from pain. There are no further sodium values in the chart since that discharge. Patient states he has not seen his primary care doctor for years but does still follow with Orthopedics and was last seen mid April 2021 for a knne injection. Patient continues to drink 6 beers per day. He denies symptoms of withdrawal or withdrawal seizures He smokes marijuana once a week. He continues to smoke tobacco 1 pack a day. Patient is alert and oriented but his history is disjointed a bit. He presents the emergency room today with complaints of acid reflux that began this morning. He points to the lower chest area in the midline. He states he has had this before and it feels very similar to his acid reflux symptoms in the past. He has taken Tums with improvement. The pain is not positional, palpable or pleuritic. He takes Aleve once a week. He denies any shortness of breath, nausea or vomiting. No radiation of the pain. Pain is very localized. Denies any weight loss or diaphoresis. He actually gained about 10-15 lb over the past year since retiring. No cough. No hemoptysis. He denies any abdominal pain. No dysuria or hematuria. No urinary frequency or urgency. No diarrhea or constipation. Patient did slip and fall in his kitchen few days prior to this admission. He is not sure if he had loss of consciousness. Denies any lightheadedness with standing. No chest pain otherwise. A full review of systems was undertaken and was negative. He did have his last COVID vaccine in April 2020. He has not had the booster. No flu vaccine. On presentation his vital signs are stable. Sodium is 118. Serum bicarb was 20 with a normal anion gap. Troponin was negative x2. Lipase was normal. EKG showed sinus rhythm with first-degree AV block but no significant change from EKG from 2020. Chest x-ray showed possible lung mass. CT of the chest shows a 2.6 cm x 4.1 cm left upper lobe mass consistent with carcinoma. He also has a 1.2 cm spiculated mass in the right upper lobe as well as mediastinal adenopathy likely metastatic. Also noted is moderately severe bullous emphysema. CT the brain showed no acute findings. He was started on IV fluids and for further care. 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 He lives alone. He is single. He smokes a pack a day and has done so for about 35-
--- NOTE | 2021-05-28 15:50 | ADMGEN ---
This patient, Greg Leslie, was admitted to Medical Room 341-01. Patient/family oriented to hospital policies and general routines including ID bracelet, bed and alarms, visiting hours, pain management, procedures, bathroom and other care routines, personal items, smoking policy, room service/diet, and visiting hours. Information on how to activate the Rapid Response Team has been discussed. Patient/Family are encouraged to report perceived risks to care and to ask questions if they do not understand what they are told or what they should do.
[2021-05-28] MEDS: SODIUM CHLORIDE 0.9% IV 1,000 ML 75 ML IV CONT (15:56)
[2021-05-28] MEDS: THIAMINE HCL 200 MG/2 ML VIAL 100 MG IV PUSH (17:34)
[2021-05-28] MEDS: FOLIC ACID 1 MG TABLET PO (17:34)
[2021-05-28] MEDS: SODIUM CHLORIDE 500 MG TABLET PO (17:34)
[2021-05-28 17:35] LABS: Troponin I < 0.012 ng/mL (0.000-0.034)
[2021-05-28 17:38] LABS: Sodium 117 mmol/L (137-145)
--- NOTE | 2021-05-28 17:49 | PM.CNNEP ---
Assessment and Plan Additional Plan 1. The patient has hyponatremia. This is fairly refractory. etiology could be 1 or more of many things. hormonal issues can cause this. His TSH was normal but is cortisol level was only 12. Will check a Cortrosyn stim test. Cancer can do this. He has a lung mass which could cause this. Pulmonary issues can do this as well. He is a chronic smoker and so could have an element of COPD. The pulmonary mass could also be considered in this category as well. The patient has chronic alcoholism so beer drinkers potomania is always a possibility as well. He admits to about 6 beers per day as well as drinking lots of tea and water even though he had the abdominal discomfort. He says he was eating okay, however. Will see what the urine osmolality shows. Last admission the urine osmolality was 233 which does not speak in favor of beer drinkers potomania. However if he has any element of SIADH from the above then drinking extra fluid would drive the sodium lower because it would be overwhelming his free water expiratory capability. SEX THERAPIST could issues could do this as well. We should get an MRI to make sure he does not have brain mets. At this point will put him on a fluid restriction. I will add demeclocycline since it is likely that this has something to do with cancer. I do not think Lasix and salt tablets would be a tomlinson long-term solution because of his lack of follow-up as an outpatient. 2. Pulmonary mass. This is going to be evaluated 3. GERD he is getting pantoprazole. 4. Alcoholism. He is getting thiamine. History of Present Illness Reason for Consult Consult date: 05/28/21 Chief Complaint Chief complaint: Lung Mass,Hyponatremia,Confusion,Scalp Lesion History of Present Illness Narrative: Greg is a very pleasant 60-year-old gentleman who has multiple medical problems including alcohol abuse, tobacco abuse, left hip intertrochanteric femur fracture in February, hyponatremia, degenerative joint disease. The patient was in the hospital in February when he fell and broke his left hip. He had surgery done. His sodium was low on admission and gradually improved to about 122. This was felt to be is baseline and he was discharged. He did not follow up with his primary care physician. Now the patient comes in with severe gastroesophageal reflux disease. He had that chest x-ray which showed up possible lung max. CT was done in this also showed a lung mass. Chest x-ray from February's admission did not show this. Upon admission is sodium level was found to be 1 18. Repeat was 117 and so renal consultation was requested. 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 He lives alone. He is single. He smokes a pack a day and has done so for about 35-40 years. He drinks 6 beers a day. He smokes marijuana once a week. No history of IV drug use. Surrogate decision maker: Kale Leslie, brother. Code status: Full code. Smoking status: Current every day smoker Tobacco type: cigarettes Additional smoking assessment comments: Patient has smoked up to 2 packs of cigarettes a day. Alcohol intake: current Drinks per week: 42 Substance use: current Substance use type: ma
[2021-05-28 19:04] LABS: Cortisol Baseline 9.81 ug/dL
[2021-05-28 20:08] LABS: Total Triiodothyronine (T3) 1.13 NG/ML (0.97-1.69)
[2021-05-28 21:01] LABS: Sodium 119 mmol/L (137-145)
[2021-05-28] MEDS: PANTOPRAZOLE 40 MG TABLET PO (21:14)
[2021-05-28] MEDS: DEMECLOCYCLINE HCL 150 MG TABLET PO (21:14)
[2021-05-28] MEDS: COSYNTROPIN 0.25 MG/ML VIAL IV PUSH (22:16)
[2021-05-29] VITALS (7 sets, daily range): BP systolic 119–138; BP diastolic 75–81; PULSE 84–100; RESP 16–18; TEMP 36–36.8; O2SAT 96–100
[2021-05-29 01:22] LABS: Sodium 118 mmol/L (137-145)
[2021-05-29 04:36] LABS: Add Urine Microscopic? YES; Appearance Urine Clear (Clear); Bilirubin Urine Negative (Negative); Blood Urine Trace (Negative); Color Urine Yellow (Yellow); Glucose Urine UA Negative (Negative); Ketones Urine 2+ mg/dL (Negative); Leukocyte Esterase Ur Negative LEU/UL (Negative); Nitrate Urine Negative (Negative); Protein Urine Negative (Negative); RBC Urine 0-2 /hpf (0-2); Urobilinogen Urine 0.2 mg/dL (<2.0); WBC Urine 0-3 /hpf
[2021-05-29] MEDS: SODIUM CHLORIDE 0.9% IV 1,000 ML 75 ML IV CONT ×2 (05:19→17:35)
[2021-05-29 05:46] LABS: Basophils Absolute Auto 0.1 K/mm3 (0.0-0.1); Basophils Percent Auto 0.9 % (0.2-1.2); Eosinophils Percent Auto 0.2 % (0-4.4); Hematocrit 42.1 % (42.0-52.0); Hemoglobin 14.9 g/dL (14.0-18.0); Immature Granulocyte Absolute 0.05 K/mm3 (0.00-0.031); Immature Granulocyte Percent A 0.6 % (0-0.5); Lymphocytes Absolute Auto 1.35 K/mm3 (0.9-3.2); Lymphocytes Percent Auto 15.1 % (18.3-44.2); Mean Corpuscular HGB Conc 35.4 g/dl (32-36); Mean Corpuscular Hemoglobin 32.7 pg (26-34); Mean Corpuscular Volume 92.3 fl (80-100); Mean Platelet Volume 9.2 fl (7.4-10.4); Monocytes Absolute Auto 0.5 K/mm3 (0.1-0.6); Monocytes Percent Auto 6.1 % (2.6-8.5); Neutrophils Absolute Auto 6.9 K/mm3 (1.3-6.7); Neutrophils Percent Auto 77.1 % (45.5-73.1); Platelet Count Result 343 k/mm3 (150-375); Red Blood Count 4.56 M/mm3 (4.6-6.20); Red Cell Distribution Width 11.8 % (11.5-14.5); White Blood Count 8.9 K/mm3 (4.5-10.0)
[2021-05-29 06:38] LABS: Alanine Aminotransferase 20 U/L (4-50); Albumin Level 4.4 g/dL (3.5-5.1); Alkaline Phosphatase 121 U/L (38-126); Anion Gap 8 mmol/L (8-16); Aspartate Amino Transferase 31 U/L (17-59); Bilirubin,Total 1.3 mg/dL (0.2-1.3); Blood Urea Nitrogen 7 mg/dL (9-20); Calcium 8.9 mg/dL (8.4-10.2); Carbon Dioxide 21 mmol/L (22-30); Chloride 93 mmol/L (98-107); Estimated CRCL calculation 106 ml/min; Estimated Glomerular Filt Rate > 60; Glucose 95 mg/dL (65-110); Phosphorus 3.5 mg/dL (2.5-4.5); Potassium 4.4 mmol/L (3.4-5.0); Sodium 122 mmol/L (137-145)
[2021-05-29] MEDS: NICOTINE (*PBKC) 21 MG PATCH 1 PATCH TRANSDERM (08:47)
[2021-05-29] MEDS: FOLIC ACID 1 MG TABLET PO (08:47)
[2021-05-29] MEDS: DEMECLOCYCLINE HCL 150 MG TABLET PO ×4 (08:47→22:16)
[2021-05-29] MEDS: THIAMINE HCL 200 MG/2 ML VIAL 100 MG IV PUSH (08:47)
[2021-05-29] MEDS: MULTIVITAMINS THERAPEUTIC TAB (*BKC) 1 TABLET PO (08:47)
[2021-05-29] MEDS: PANTOPRAZOLE 40 MG TABLET PO ×2 (08:47→22:16)
[2021-05-29] MEDS: SODIUM CHLORIDE 500 MG TABLET PO ×2 (08:47→17:35)
[2021-05-29 08:56] LABS: Sodium 123 mmol/L (137-145)
--- NOTE | 2021-05-29 09:14 | PM.CNPUL ---
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 He also has hyponatremia managed by hospitalist and renal service. . I had spoken with Dr. Ramesh of Radiology and the left upper lobe mass is amenable to CT-guided biopsy. I recommended this procedure to the patient but at this time the patient is not interested in performing any biopsies. I again reinforced the recommendation stating that any delay and biopsy could delay the diagnosis and could delay treatment which may worsen his outcome. He is competent and understands this but still does not wish to have a biopsy at this time. He stated that he needs time to think about this and he is not sure if he will ever have a biopsy in the future. I asked the patient if he will follow up with us in clinic and he will consider this in the future. He also stated that he prefers to follow-up with his primary physician Dr. Mcguire. If it is possible to arrange an outpatient CT-guided left lung biopsy on discharge please proceed with this. I gave him our business card and will inform our tax accountant to have the patient follow up with us in 1-2 weeks after discharge. Discussed with Dr. Garcia, we will sign off, call with any questions. History of Present Illness History of Present Illness Consult date: 05/29/21 Requesting physician: Michele Garcia MD Reason for consult: lung mass Chief complaint: Lung Mass,Hyponatremia,Confusion,Scalp Lesion Narrative: 05/29/2021: This is a new pulmonary consult for left lung mass. 60-year-old man with a history of a left hip fracture, hyponatremia, alcohol use, current tobacco use presented to the hospital on 05/28 with indigestion and reflux. Patient patient had a history of a left hip fracture from a fall in 2019 and had hyponatremia at that time. He had a chest x-ray on 02/28/2020 that showed mild pulmonary edema and a repeat chest x-ray on 03/01/2020 showed improved pulmonary edema with no nodules or masses. Patient presents now with 1 day history of lower sternal upper abdominal acid reflux pain. Patient denies any fever, chills, rigors, cough, phlegm, hemoptysis or chest pain. Patient had a chest x-ray in the emergency department that showed a left mid lung zone mass and a CT scan showed a 2.6 x 4.1 spiculated mass in the left upper lobe as well as a 7 x 12 mm spiculated mass in the right upper lobe. Patient also had moderate to severe apical predominant panlobular emphysema. At baseline patient states he can walk 1/2 a block and he has to stop for knee pain not for dyspnea on exertion. Patient has had no hospitalizations ever for respiratory issues. Patient smokes tobacco from age 20 to current at 1 pack per day for a total of 40 pack years. Patient also smokes 1 cigarette of marijuana a day for the last 20 years. Patient was not exposed to any secondhand smoke. Patient denies vaping, other illicit drug use, sandblasting, welding, asbestos were, professional painting or steel mill beam fitter. 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 Patient denies any previous history of cancer and has no family history of cancer. 3/3 Patient states that he is breathing it normally and that his midback but gastric pain is 90% gone. Patient's room air saturations are 96%. Review of Systems Review of Systems: All systems reviewed & are unremarkable except as noted in HPI and below Eyes: Eyes: Reports no additional eye complaints ENT: Reports system reviewed and no addition
--- NOTE | 2021-05-29 12:41 | PM.PNNEP ---
Progress Note: A&P Additional Plan 1. The patient has hyponatremia. This is fairly refractory. hormonal issues can cause this. His TSH was normal but is cortisol level was only 12. Will check a Cortrosyn stim test. Cancer can do this. He has a lung mass which could cause this. Pulmonary issues can do this as well. He is a chronic smoker and so could have an element of COPD. The pulmonary mass could also be considered in this category as well. 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 He is on fluid restriction of 1200 and demeclocycline. Sodium level improved a bit to 123. 2. Pulmonary mass. This is going to be evaluated 3. GERD he is getting pantoprazole. This can occasionally cause low sodium as well. Will keep an eye on things. 4. Alcoholism. He is getting thiamine. Subjective Date/time seen: 05/29/21 12:41 Interval history: Greg is feeling about the same. No chest pain or shortness of breath. Review of Systems Cardiovascular: Cardiovascular: Reports no additional cardiovascular complaints Respiratory: Respiratory: Reports no additional respiratory complaints Gastrointestinal: Gastrointestinal: Reports no additional gastrointestinal complaints Genitourinary: Genitourinary: Reports no additional male genitourinary complaints Exam Narrative: WDWN in NAD skin no rash head ncat lungs clear cor reg no rub abd BS+ nontender and soft. Some distention. ext no edema. Objective Data Vital Signs Vital Signs: Vital Signs - 24 hr 05/28/21 12:43 05/28/21 12:47 05/28/21 13:02 Temperature Pulse Rate 94 97 91 Respiratory Rate 25 H 21 H 24 H Blood Pressure Pulse Oximetry 99 98 98 05/28/21 13:15 05/28/21 13:30 05/28/21 13:31 Temperature Pulse Rate 86 92 98 Respiratory Rate 23 H 26 H 18 Blood Pressure 128/88 Pulse Oximetry 98 98 98 05/28/21 13:42 05/28/21 13:45 05/28/21 14:01 Temperature Pulse Rate 92 103 H 94 Respiratory Rate 25 H 23 H 20 Blood Pressure 128/88 Pulse Oximetry 98 99 100 05/28/21 14:02 05/28/21 14:22 05/28/21 14:30 Temperature Pulse Rate 94 90 93 Respiratory Rate 21 H 21 H Blood Pressure 132/82 Pulse Oximetry 100 99 99 05/28/21 14:31 05/28/21 14:45 05/28/21 15:00 Temperature Pulse Rate 93 93 93 Respiratory Rate 23 H 24 H Blood Pressure 121/81 127/93 H Pulse Oximetry 99 97 97 05/28/21 15:01 05/28/21 15:19 05/28/21 15:48 Temperature 36.8 C Pulse Rate 92 95 91 Respiratory Rate 18 24 H 18 Blood Pressure 127/78 Pulse Oximetry 100 100 05/28/21 20:00 05/29/21 00:13 05/29/21 06:28 Temperature 36.8 C 36.0 C L Pulse Rate 91 89 84 Respiratory Rate 18 18 Blood Pressure 127/78 124/80 123/80 Pulse Oximetry 100 100 96 Intake/Output Intake/Output: Intake & Output 05/26/21 05/27/21 05/28/21 05/29/21 23:59 23:59 23:59 23:59 Intake Total 240 1125 Output Total 300 Balance 240 825 Meds/Results Medications: Active Medications Generic Name Dose Route Start Last Admin Trade Name Freq PRN Reason Stop Dose Admin Acetaminophen 650 mg 05/28/21 14:42 Acetaminophen 325 Mg Tablet PO Q4H PRN Mild Pain (1-3) or Fever Hydrocodone Bitart/Acetaminophen 1 tab 05/28/21 14:42 Hydrocodone/Acetaminophen (*Crx) 5-325 Mg Tablet PO Q4H PRN Pain Rated 4-6 Chlordiazepoxide HCl 25 mg 05/28/21 16:27 Chlordiazepoxide (*Crx) 25 Mg Capsule PO Q6H PRN Withdrawal Demeclocycline HCl 150 mg 05/28/21 21:00 05/29/21 12:20 Demeclocycline Hcl 150 Mg Tablet PO 150 mg QID YAMEL Administration Folic Acid 1 mg 05/28/21 16:30 05/29/21 08:47 Folic Acid 1 Mg Tablet PO 1 mg DAILY YAMEL Administration Sodium Chloride 1,000 mls @ 75 mls/hr 05/28/21 14:45 05/29/21 05:19 Normal Saline Iv IV CONT 75 mls/hr .[id number] YAMEL Administration Lorazepam 1 mg 05/28/21 16:27 Lorazepam Inj (*Crx) 2 Mg/Ml Vial IV PUSH Q6H PRN
[2021-05-29 12:43] LABS: Sodium 123 mmol/L (137-145)
--- NOTE | 2021-05-29 16:02 | PM.IMPN ---
Progress Note: A&P Assessment and Plan (1) Hyponatremia: Code(s): E87.1 - Hypo-osmolality and hyponatremia Status: Acute Assessment and Plan: Na 118 on admission. This is not too far off from his level at last discharge. Given that he is relatively asymptomatic, suspect there is a chronic component from his alcohol use. Could be made worse from his lung mass. SPEP/UPEP and light chains were unremarkable last admission. UA clear. TSH and Cortisol normal. Urine Na/Cr pending. Continue fluid restriction. Continue NaCl tabs. Nephrology consulted and appreciate their input. Continue Q6hr Na levels. (2) Lung mass: Code(s): R91.8 - Other nonspecific abnormal finding of lung field Status: Acute Assessment and Plan: Patient with abnormal chest x-ray on admission. CT of the chest showing 4.1 cm irregular spiculated left upper lobe mass and a smaller lesion in the RUL. Left lung mass appears to be contiguous with the left upper lobe bronchi this may be able to be reached with the bronchoscopy. Patient also with clubbing. Discussed with Pulmonary who recommended biopsy by IR but patient refused. he is aware of the concern that this is lung cancer and that delay in diagnosis could result in worsening outcome. He has decided to follow-up in the clinic for the procedure. (3) Chest pain: Code(s): R07.9 - Chest pain, unspecified Status: Acute Assessment and Plan: Patient with atypical lower chest pain that he describes as acid reflux. Trop negative x3. EKG unchanged from 2020. Suspect related to acid reflux or gastritis from his NSAID use, tobacco and alcohol use. Protonix added and symptoms have resolved. Follow clinically for now (4) Confusion: Code(s): R41.0 - Disorientation, unspecified Status: Acute Assessment and Plan: Patient had mild confusion but was still oriented. Suspect related to the hyponatremia. Symptoms improved as sodium has improved. MRI of the brain showing no acute findings. Continue to monitor (5) Scalp lesion: Code(s): L98.9 - Disorder of the skin and subcutaneous tissue, unspecified Status: Acute Assessment and Plan: Patient with a irregular mole on the scalp. Concerning for melanoma. It is felt that this is less likely to be the etiology of his lung mass but cannot be completely excluded. This will need to be further evaluated and treated as an outpatient. Patient is aware of this. (6) Alcohol abuse: Code(s): F10.10 - Alcohol abuse, uncomplicated Status: Acute Assessment and Plan: Patient drinks 6 beers a day. He denies any history of withdrawal symptoms. CIWA score is 0. Continue thiamine, folate multivitamin. Librium is available as needed signs or symptoms of withdrawal. He was educated about the benefits abstain from alcohol use. (7) Tobacco abuse: Code(s): Z72.0 - Tobacco use Status: Acute Assessment and Plan: Patient was educated about the benefits of smoking cessation. Continue nicotine patch. (8) DVT prophylaxis: Code(s): Z29.9 - Encounter for prophylactic measures, unspecified Status: Acute Assessment and Plan: Lovenox Subjective Date/time seen: 05/29/21 16:02 Interval history: 60yo male with alcohol abuse, tobacco abuse and hyponatremia here for acid reflux and found to have a sodium of 118 and a lung mass. Patient spoke with the maternal fetal physician. He refused the lung biopsy. He voiced understanding that this could be cancer. Wants to wait however and discuss it further as an outpatient. He slept poorly last night. He denies any anxiety symptoms. No diaphoresis or shaking spells. Overall he feels better. The lower chest pain that he describes as reflux symptom has resolved. Exam Narrative: AF 97.0 138/81 100 16 98% ra Gen - NARD Chest -CTA bilaterally, nml RR CV - RRR S1/S2 Abd - abdomen was soft. Nontender. Nondiste
[2021-05-29] MEDS: ENOXAPARIN 40 MG/0.4 ML SYRINGE SUB-Q (17:35)
[2021-05-29 18:11] LABS: Sodium 126 mmol/L (137-145)
[2021-05-30] VITALS: PULSE 90
[2021-05-30 04:00] VITALS: PULSE 96
[2021-05-30 05:33] LABS: Anion Gap 7 mmol/L (8-16); Blood Urea Nitrogen 6 mg/dL (9-20); Calcium 8.7 mg/dL (8.4-10.2); Carbon Dioxide 24 mmol/L (22-30); Chloride 99 mmol/L (98-107); Estimated CRCL calculation 92 ml/min; Estimated Glomerular Filt Rate > 60; Glucose 88 mg/dL (65-110); Potassium 3.9 mmol/L (3.4-5.0); Sodium 130 mmol/L (137-145)
[2021-05-30 05:49] LABS: Sodium 127 mmol/L (137-145)
[2021-05-30 06:33] VITALS: BP 113/73; PULSE 74; RESP 16; TEMP 36; O2SAT 99
[2021-05-30 08:00] VITALS: BP 113/73; PULSE 74; PULSE 96; RESP 16; O2SAT 99
[2021-05-30] MEDS: NICOTINE (*PBKC) 21 MG PATCH 1 PATCH TRANSDERM (09:40)
[2021-05-30] MEDS: ENOXAPARIN 40 MG/0.4 ML SYRINGE SUB-Q (09:42)
[2021-05-30] MEDS: MULTIVITAMINS THERAPEUTIC TAB (*BKC) 1 TABLET PO (09:42)
[2021-05-30] MEDS: DEMECLOCYCLINE HCL 150 MG TABLET PO (09:43)
[2021-05-30] MEDS: PANTOPRAZOLE 40 MG TABLET PO (09:43)
[2021-05-30] MEDS: THIAMINE HCL 100 MG TABLET PO (09:43)
[2021-05-30] MEDS: SODIUM CHLORIDE 500 MG TABLET PO (09:43)
[2021-05-30] MEDS: FOLIC ACID 1 MG TABLET PO (09:43)
--- NOTE | 2021-05-30 09:54 | PM.PNNEP ---
Progress Note: A&P Additional Plan 1. The patient has hyponatremia. This is fairly refractory. Cortrosyn stimulation test was normal. TSH is normal. CT shows a lung mass. Most likely this is due to the lung mass and excess fluid intake along with alcohol. He is on fluid restriction of 1200 and demeclocycline. Sodium level improved to 130. Rate of improvement is good. Continue demeclocycline and fluid restriction. He says he is going home today. I can see as an outpatient he should get another sodium done early to mid next week. Dr. Carrasco was see tomorrow if he still here. 2. Pulmonary mass. This is going to be evaluated 3. GERD he is getting pantoprazole. This can occasionally cause low sodium as well. Will keep an eye on things. 4. Alcoholism. He is getting thiamine. Subjective Date/time seen: 05/30/21 09:54 Interval history: Greg is feeling about the same. Eager for discharge. Is dressed and ready to go. No chest pain or shortness of breath. Exam Narrative: WDWN in NAD skin no rash or subQ nodules head ncat lungs clear cor reg no rub or gallop abd BS+ nontender and soft. Some distention. ext no edema. Objective Data Vital Signs Vital Signs: Vital Signs - 24 hr 05/29/21 14:19 05/29/21 14:59 05/29/21 19:47 Temperature 36.1 C L Pulse Rate 100 Pulse Rate [Right Radial] 94 Respiratory Rate 16 Blood Pressure 138/81 Pulse Oximetry 99 98 05/29/21 20:16 05/29/21 21:03 05/30/21 00:00 Temperature 36.0 C L Pulse Rate 100 Pulse Rate [Right Radial] 90 Respiratory Rate 18 Blood Pressure 119/75 Pulse Oximetry 96 97 05/30/21 04:00 05/30/21 06:33 05/30/21 08:00 Temperature 36.0 C L Pulse Rate 74 74 Pulse Rate [Right Radial] 96 96 Respiratory Rate 16 16 Blood Pressure 113/73 113/73 Pulse Oximetry 99 99 Intake/Output Intake/Output: Intake & Output 05/27/21 05/28/21 05/29/21 05/30/21 23:59 23:59 23:59 23:59 Intake Total 240 2445 240 Output Total 300 Balance 240 2145 240 Meds/Results Medications: Active Medications Generic Name Dose Route Start Last Admin Trade Name Freq PRN Reason Stop Dose Admin Acetaminophen 650 mg 05/28/21 14:42 Acetaminophen 325 Mg Tablet PO Q4H PRN Mild Pain (1-3) or Fever Hydrocodone Bitart/Acetaminophen 1 tab 05/28/21 14:42 Hydrocodone/Acetaminophen (*Crx) 5-325 Mg Tablet PO Q4H PRN Pain Rated 4-6 Chlordiazepoxide HCl 25 mg 05/28/21 16:27 Chlordiazepoxide (*Crx) 25 Mg Capsule PO Q6H PRN Withdrawal Demeclocycline HCl 150 mg 05/28/21 21:00 05/30/21 09:43 Demeclocycline Hcl 150 Mg Tablet PO 150 mg QID YAMEL Administration Enoxaparin Sodium 40 mg 05/30/21 09:00 05/30/21 09:42 Enoxaparin 40 Mg/0.4 Ml Syringe SUB-Q 40 mg DAILY YAMEL Administration Folic Acid 1 mg 05/28/21 16:30 05/30/21 09:43 Folic Acid 1 Mg Tablet PO 1 mg DAILY YAMEL Administration Lorazepam 1 mg 05/28/21 16:27 Lorazepam Inj (*Crx) 2 Mg/Ml Vial IV PUSH Q6H PRN Withdrawal and NPO Multivitamins Therapeutic 1 tablet 05/29/21 09:00 05/30/21 09:42 Multivitamins Therapeutic Tab (*Bkc) PO 1 tablet QAM YAMEL Administration Nicotine 1 patch 05/28/21 16:35 05/30/21 09:40 Nicotine (*Pbkc) 21 Mg Patch TRANSDERM 1 patch QAM YAMEL Administration Ondansetron HCl 4 mg 05/28/21 14:42 Ondansetron Inj 4 Mg/2 Ml Vial IV PUSH Q4H PRN Nausea Pantoprazole Sodium 40 mg 05/28/21 21:00 05/30/21 09:43 Pantoprazole 40 Mg Tablet PO 40 mg Q12HR YAMEL Administration Sodium Chloride 500 mg 05/28/21 17:00 05/30/21 09:43 Sodium Chloride 500 Mg Tablet PO 500 mg BID YAMEL Administration Thiamine HCl 100 mg 05/30/21 09:00 05/30/21 09:43 Thiamine Hcl 100 Mg Tablet PO 100 mg QAM YAMEL Administration Radiology Results: ITS Impressions Chest X-Ray 05/28/21 12:41 IMPRESSION: 1. Mass in left upper lob
--- NOTE | 2021-05-30 10:46 | PM.DS ---
DS: Admitting Diagnosis Discharge Date 05/30/21 Admitting Diagnosis Acid reflux DS: Discharge Diagnosis Discharge Diagnosis (1) Hyponatremia: Code(s): E87.1 - Hypo-osmolality and hyponatremia Status: Acute (2) Lung mass: Code(s): R91.8 - Other nonspecific abnormal finding of lung field Status: Acute (3) Chest pain: Code(s): R07.9 - Chest pain, unspecified Status: Acute (4) Confusion: Code(s): R41.0 - Disorientation, unspecified Status: Acute (5) Scalp lesion: Code(s): L98.9 - Disorder of the skin and subcutaneous tissue, unspecified Status: Acute (6) Alcohol abuse: Code(s): F10.10 - Alcohol abuse, uncomplicated Status: Acute (7) Tobacco abuse: Code(s): Z72.0 - Tobacco use Status: Acute DS: Summary Hospital Course Reason for hospitalization: 60yo male with alcohol abuse, tobacco abuse and hyponatremia here for acid reflux and found to have a sodium of 118 and a lung mass. Please see H&P for details. Hospital Course: Patient presents with atypical lower chest pain that he describes as acid reflux. Trop negative x3. EKG unchanged from 2019. Suspected related to acid reflux or gastritis from his NSAID use, tobacco and alcohol use. Protonix added and symptoms resolved. Patient with abnormal chest x-ray on admission. CT of the chest showing 4.1 cm irregular spiculated left upper lobe mass and a smaller lesion in the RUL. Patient also with clubbing. Discussed with Pulmonary who recommended biopsy by IR but patient refused. He is aware of the concern that this is lung cancer and that delay in diagnosis could result in worsening outcome. Patient has decided to follow-up in the clinic for the procedure. He voices understanding of the very real concern that this is lung cancer. Na 118 on admission. This is not too far off from his level at last discharge but no values since 02/2020. [place] related to his alcohol use and/or lung mass. SPEP/UPEP and light chains were unremarkable last admission. UA clear. TSH and Cortisol normal. Urine Na/Cr ordered but not collected. Started on NaCl tablets and fluid restriction. Nephrology consulted and demeclocycline started. Appreciate their input. Na climbed slowly to 130. Patient had mild confusion on admission but was still oriented. Suspect related to the hyponatremia. Symptoms improved as sodium has improved. MRI of the brain showing no acute findings. Patient with a irregular mole on the scalp. Concerning for melanoma. his will need to be further evaluated and treated as an outpatient. Patient is aware of this and agrees to follow up with Dermatology. Patient drinks 6 beers a day. He denied any history of withdrawal symptoms. CIWA protocol ordered and score remained low. Treated with thiamine, folate and multivitamin. Librium and Ativan was available as needed but he did not require either of these medications. He was educated about the benefits abstain from alcohol use. Patient was also educated about the benefits of smoking cessation. Patient overall did well and was able to be discharged home on 05/30/2021. Status at Discharge Cognitive/behavioral status at discharge: Stable Time Spent with Patient Time attestation: Total time spent providing and/or coordinating discharge services: 34 minutes Time spent: Greater than 30 minutes Exam Narrative: AF 96.8 113/73 74 16 99% ra Gen - NARD Chest -CTA bilaterally, nml RR CV - RRR S1/S2 Abd - abdomen was soft. Nontender. Nondistended. Positive bowel sounds. Ext - no pedal edema. Psych - normal mood and affect. Skin - warm and dry. DS: Data Data Completed and Pending Labs on day of discharge: Labs from last 24 hours 05/30/21 05/30/21 05/29/21 04:58 00:29 17:57 Sodium 130 L 127 L 126 L Potassium 3.9 Chloride 99 Carbon Dioxide 24 Anion Gap 7 L BUN 6 L Creatinine 0.70 Estim Creat Clear Calc 92 Estimated GF
[2021-05-31 15:44] LABS: Adrenocorticotropic Hormone 22 pg/mL (6-50)
== END 2021-05-30 11:46 | disposition home or self-care (01) ==
LOC: ANHED 14:53 → ANH3MED 15:34
PROVIDERS: Internal Medicine Nephrology; Admitting Provider Internal Medicine; Emergency Provider Emergency Medicine; PCP Internal Medicine; Visit Provider Internal Medicine
DX: E87.1 Hypo-osmolality and hyponatremia (principal); R91.8 Other nonspecific abnormal finding of lung field; K21.9 Gastro-esophageal reflux disease without esophagitis; R07.9 Chest pain, unspecified; L98.9 Disorder of the skin and subcutaneous tissue, unspecified; M22.40 Chondromalacia patellae, unspecified knee; M17.0 Bilateral primary osteoarthritis of knee; S00.81XA Abrasion of other part of head, initial encounter; R41.0 Disorientation, unspecified; F10.10 Alcohol abuse, uncomplicated; F17.210 Nicotine dependence, cigarettes, uncomplicated; W19.XXXA Unspecified fall, initial encounter
CPT/HCPCS: 36415; 70450; 70551; 71046; 71250; 80053; 80069; 81001; 82024; 82533; 83690; 83735; 83930; 84100; 84295; 84439; 84443; 84480; 84484; 85025; 85610; 85730; 93005; 96361; 96372; 96374; 96375; 99285; A9270; G0378; J0834; J1650; J3411; J7030

== ENCOUNTER 2022-02-04 12:46 | Inpatient (IN) | payer OTHER, SELFPAY ==
[2022-02-04] VITALS (23 sets, daily range): BP systolic 99–151; BP diastolic 56–134; PULSE 76–98; RESP 12–27; TEMP 36.4–37.4; O2SAT 69–100
--- NOTE | ~2022-02-04 | CT_ITS ---
EXAMINATION: CT brain wo con DATE: 02/04/2022 15:01 INDICATION: Dizziness. TECHNIQUE: Computed tomography (CT) of the head was performed without intravenous contrast. The mA wa s adjusted according to patient size. Iterative reconstruction technique was employed. The dose-lengt h product was 756.67 mGy-cm. COMPARISON: Head CT 05/28/2021 FINDINGS: There are scattered areas of low attenuation in the cerebral white matter. There is no intr acranial hemorrhage, acute infarction, or abnormal intracranial mass lesion. The ventricles are bob l in size. The orbits are normal. There is mild mucosal thickening in the paranasal sinuses. The mast oid air cells are normal. IMPRESSION: 1. Stable moderate nonspecific cerebral white matter disease, which likely represents chronic small v essel ischemic disease. Reviewed, dictated and finalized at location A. WAITRESS IMPRESSION: 1. Stable moderate nonspecific cerebral white matter disease, which likely repr esents chronic small vessel ischemic disease.
--- NOTE | ~2022-02-04 | XR_ITS ---
EXAMINATION: XR knee LT min 4V DATE: 02/04/2022 14:30 INDICATION: Left knee pain. Fall. TECHNIQUE: 4 views of left knee were obtained. COMPARISON: Left knee radiographs 10/02/2021 FINDINGS: Bone alignment is normal. No fracture. There is mild osteoarthritis of lateral and patellof emoral compartments characteristic by tiny osteophytes. No knee joint effusion. IMPRESSION: 1. Mild left knee osteoarthritis. Reviewed, dictated and finalized at location A. E CHECKER
--- NOTE | ~2022-02-04 | XR_ITS ---
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 RESULT: Lines, tubes, and devices: None. Suture material in the left midlung Lungs and pleura: New and significant left hemidiaphragm elevation with left lung volume loss and di ffuse groundglass opacity. Similar left midlung masslike area. Known spiculated right upper lobe nodu le is poorly visualized radiographically. Calcified right medial basal granuloma. Cardiomediastinal silhouette: Stable. Other: Mildly displaced left fifth and sixth posterior rib fractures. No acute upper abdominal findi ng. IMPRESSION: Interval partial left pneumonectomy. Apparent persistence of the left midlung mass, with left lung vo lume loss and diffuse groundglass opacities that may reflect atelectasis or a component of bronchial obstruction. Mildly displaced left posterior fifth and sixth rib fractures. Reviewed, dictated and finalized at location K. E LINING DRILLER IMPRESSION: Interval partial left pneumonectomy. Apparent persistence of the left midlung m ass, with left lung volume loss and diffuse groundglass opacities that may refl ect atelectasis or a component of bronchial obstruction. Mildly displaced left posterior fifth and sixth rib fractures.
--- NOTE | ~2022-02-04 | XR_ITS ---
EXAMINATION: XR knee RT min 4V DATE: 02/04/2022 14:30 INDICATION: Right knee pain. Fall. TECHNIQUE: 4 views of right knee were obtained. COMPARISON: None. FINDINGS: Bone alignment is normal. No fracture. There is mild posterior arthritis of lateral and pat ellofemoral compartments characterized by tiny marginal osteophytes. No knee joint effusion. IMPRESSION: 1. Mild right knee osteoarthritis. Reviewed, dictated and finalized at location A. ENT SERVICES COUNSELOR
--- NOTE | ~2022-02-04 | CT_ITS ---
EXAMINATION: CT lumbar spine wo con DATE: 02/04/2022 15:02 INDICATION: Fall. TECHNIQUE: Computed tomography (CT) of the lumbar spine was performed without intravenous contrast. A utomated exposure control and iterative reconstruction technique were employed. The dose-length produ ct was 447.12 mGy-cm. COMPARISON: Chest CT 05/28/2021 FINDINGS: There is 8 degrees levocurvature of lumbar spine. There is 3 mm retrolisthesis of L4 on L5. L5 is a transitional segment. There is mildly decreased disc height at L4-L5. The following disc lev els are specifically discussed: L1-L2: The disc does not extend beyond the endplate margin. There is mild bilateral facet joint osteo arthritis. There is no neural foraminal stenosis. There is no central canal stenosis. L2-L3: The disc is bulging. There is mild bilateral facet joint osteoarthritis. There is mild bilater al neural foraminal stenosis. There is no central canal stenosis. L3-L4: The disc is bulging. There is mild bilateral facet joint osteoarthritis. There is mild bilater al neural foraminal stenosis. There is mild central canal stenosis. L4-L5: The disc is bulging. There is moderate right and mild left facet joint osteoarthritis. There i s moderate bilateral neural foraminal stenosis. There is mild central canal stenosis. L5-S1: The disc does not extend beyond the endplate margin. There is no facet joint hypertrophy. Ther e is no neural foraminal stenosis. There is no central canal stenosis. IMPRESSION: 1. No fracture. 2. Moderate spondylosis at L4-L5 and mild spondylosis at other levels. Reviewed, dictated and finalized at location A. ARY MANAGER
--- NOTE | 2022-02-04 13:26 | ECG_ITS ---
Measurements Intervals Simpson Rate: 95 P: 1 NE: 197 QRS: -8 QRSD: 102 T: 28 QT: 346 QTc: 436 Interpretive Statements SINUS RHYTHM BORDERLINE AV CONDUCTION DELAY CANNOT RULE OUT SEPTAL INFARCT, AGE INDETERMINATE BASELINE ARTIFACT- I, II, III, AVR, AVL, AVF ABNORMAL ECG COMPARED TO ECG 05/28/2021 12:07:48 CANNOT RULE OUT SEPTAL INFARCT, AGE INDETERMINATE NOW PRESENT Electronically Signed On 02-04-2022 14:29:30 RADAR TESTER by Eduar Bond D.O.
--- NOTE | 2022-02-04 14:23 | ED.GENADULT ---
HPI - General Adult General Chief complaint: Fall Stated complaint: fall, lower back pain, and knee pain Time Seen by Provider: 02/04/22 14:11 Source: RN notes reviewed History of Present Illness HPI narrative: Patient presents emergency room from home for falls. Patient states that yesterday he lost his balance and fell he states at that time he had fallen down onto his knees had not struck his head and did not have any evaluation. He states he did not strike his head at that time of loss of consciousness. He states that today he was standing he began to feel dizzy he then fell to the ground landing on both of his knees he states he has had some pain in his bilateral knee since that time he also states he has had some lower back pain he denies striking his head or loss consciousness he denies any dizziness at this time he denies any chest pain shortness of breath abdominal pain nausea or vomiting denies any numbness or weakness of the extremities Related Data Home Medications Medication Instructions Recorded Confirmed ibuprofen 200 mg capsule 200 mg PO TID PRN 10/02/21 10/02/21 Allergies Allergy/AdvReac Type Severity Reaction Status Date / Time No Known Allergies Allergy Verified 10/02/21 09:14 Review of Systems Review of Systems: Gen.: Denies fevers or chills Eyes: Denies eye pain or visual change ENT: Denies congestion Respiratory: Denies shortness of breath or cough CV: Denies chest pain or palpitations GI: Denies abdominal pain nausea, emesis Musculoskeletal: See HPI Neuro: Reports dizziness Skin: Denies rash Except as documented, all other systems reviewed and negative [facility] Past Medical History Medical History Alcohol abuse Chondromalacia, patella Hyponatremia Left knee DJD Right knee DJD Tear of medial meniscus of left knee Tobacco abuse Surgical History Surgical History Hx of fracture of femur s/p reduction and intramedullary hip screw fixation, left hip 05/01/19 Family History Family History Father Acute myocardial infarction Hypertension Mother Breast cancer Hypertension Social History Social History Social History: 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 He lives alone. He is single. He smokes a pack a day and has done so for about 35-40 years. He drinks 6 beers a day. He smokes marijuana once a week. No history of IV drug use. Surrogate decision maker: Kale Leslie, brother. Code status: Full code. Smoking status: Current every day smoker Tobacco type: cigarettes Additional smoking assessment comments: Patient has smoked up to 2 packs of cigarettes a day. Alcohol intake: current Drinks per week: 42 Substance use: current Substance use type: marijuana Additional living arrangements comments: Lives in his own home in [place]. 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 Gender identity (if verbalized by the patient): Male Sexual Orientation (if Verbalized by the Patient): Straight or Heterosexual Spiritual care concerns: No Agree to blood products: Yes Exam Narrative: APPEARANCE: No acute distress, nontoxic, resting in bed EYES: EOMI, PERRL HEENT: Normocephalic, atraumatic, TMs clear bilaterally nares patent no facial tenderness Neck: No midline tenderness palpation full range of motion without pain no tenderness of bilateral paravertebral muscles RESPIRATORY: No respiratory distress Clear to auscultation bilaterally with no rhonchi wheezing or rales. CARDIOVASCULAR: Regular rate and rhythm without murmurs rubs or gallops. ABDOMINAL: Soft, nontender, nondistended, no rebound or guarding Back: No midline thoracic lumbar tenderness palpation tender palpation bilateral perigee muscles L1-3 MUSCULOSKELETAl: Move
[2022-02-04 14:56] LABS: Basophils Absolute Auto 0.1 K/mm3 (0.0-0.1); Basophils Percent Auto 2.2 % (0.2-1.2); Eosinophils Absolute Auto 0.1 K/mm3 (0-0.3); Eosinophils Percent Auto 1.3 % (0-4.4); Hematocrit 41.5 % (42.0-52.0); Hemoglobin 14.3 g/dL (14.0-18.0); Immature Granulocyte Absolute 0.03 K/mm3 (0.00-0.031); Immature Granulocyte Percent A 0.6 % (0-0.5); Immature Platelet Fraction Pct 2.6 % (0.9-11.2); Lymphocytes Absolute Auto 0.71 K/mm3 (0.9-3.2); Lymphocytes Percent Auto 15.3 % (18.3-44.2); Mean Corpuscular HGB Conc 34.5 g/dl (32-36); Mean Corpuscular Hemoglobin 30.2 pg (26-34); Mean Corpuscular Volume 87.6 fl (80-100); Monocytes Absolute Auto 0.9 K/mm3 (0.1-0.6); Monocytes Percent Auto 18.6 % (2.6-8.5); Neutrophils Absolute Auto 2.9 K/mm3 (1.3-6.7); Platelet Count Result 386 k/mm3 (150-375); Red Blood Count 4.74 M/mm3 (4.6-6.20); Red Cell Distribution Width 13.4 % (11.5-14.5); White Blood Count 4.6 K/mm3 (4.5-10.0)
[2022-02-04 15:06] LABS: INR 1.1; Prothrombin Time 13.7 Seconds (11.1-14.7)
[2022-02-04 15:07] LABS: Partial Thromboplastin Time 37.6 SECONDS (22.3-36.8)
[2022-02-04 15:16] LABS: Alanine Aminotransferase 35 U/L (6-50); Albumin Level 4.7 g/dL (3.5-5.1); Alkaline Phosphatase 114 U/L (38-126); Anion Gap 14 mmol/L (8-16); Aspartate Amino Transferase 128 U/L (17-59); Blood Urea Nitrogen 12 mg/dL (9-20); Calcium 9.1 mg/dL (8.4-10.2); Carbon Dioxide 18 mmol/L (22-30); Chloride 86 mmol/L (98-107); Estimated CRCL calculation 75 ml/min; Estimated Glomerular Filt Rate > 60; Glucose 88 mg/dL (65-110); Potassium 4.4 mmol/L (3.4-5.0); Sodium 118 mmol/L (137-145)
[2022-02-04] MEDS: SODIUM CHLORIDE 0.9% IV 1,000 ML 999 ML IV CONT (15:35)
[2022-02-04 15:37] LABS: Magnesium 1.8 mg/dL (1.6-2.3)
[2022-02-04 15:39] LABS: Ethanol < 10 mg/dL (<10)
[2022-02-04 15:42] LABS: Lactic Acid Reflex 1.1 mmol/L (0.7-2.0)
[2022-02-04 15:49] LABS: Troponin I < 0.012 ng/mL (0.000-0.034)
[2022-02-04 16:10] LABS: Influenza A QL RT-PCR Negative (Negative); Influenza B QL RT-PCR Negative (Negative); SARS-CoV-2 RNA PCR Positive
[2022-02-04 17:54] LABS: Anion Gap 13 mmol/L (8-16); Blood Urea Nitrogen 12 mg/dL (9-20); Calcium 8.2 mg/dL (8.4-10.2); Carbon Dioxide 20 mmol/L (22-30); Chloride 89 mmol/L (98-107); Estimated CRCL calculation 85 ml/min; Estimated Glomerular Filt Rate > 60; Glucose 85 mg/dL (65-110); Potassium 3.8 mmol/L (3.4-5.0); Sodium 122 mmol/L (137-145)
--- NOTE | 2022-02-04 20:51 | ADMGEN ---
This patient, Greg Leslie, was admitted to [facility] Surg Room 332-01. Patient/family oriented to hospital policies and general routines including ID bracelet, bed and alarms, visiting hours, pain management, procedures, bathroom and other care routines, personal items, smoking policy, room service/diet, and visiting hours. Information on how to activate the Rapid Response Team has been discussed. Patient/Family are encouraged to report perceived risks to care and to ask questions if they do not understand what they are told or what they should do.
--- NOTE | 2022-02-04 21:32 | PM.IMHP ---
H&P: HPI History of Present Illness Date/Time: 02/04/22 21:32 Chief Complaint: Falls Narrative: this is a 61-year-old male patient who came to the emergency room from home due to falls. The patient stated he lost his balance yesterday and he fell down onto his knees did not strike his head and did not have any evaluation at this time. He stated he did not lose consciousness. Today he was standing when he started to feel dizzy and then he fell onto the ground landing on both of his knees again it was complaining of bilateral knee pain. He also had some lower back pain. The patient has a history of alcoholism and has a chronically low sodium. His initial sodium was found to be 118 and then came up to 122. Dr. Carrasco has been consulted. The patient initially was given normal saline. The patient denies any nausea vomiting or diarrhea. The patient was found to be positive for COVID. The patient is being admitted to observation status on the date of service of 02/04/2022. Review of Systems Review of Systems: See HPI All systems reviewed & are unremarkable except as noted in HPI and below Constitutional: Constitutional: Reports as per HPI and Reports no additional constitutional complaints Eyes: Eyes: Reports as per HPI and Reports no additional eye complaints ENT: Reports system reviewed and no additional complaints, except as documented and Reports Normal hearing present Cardiovascular: Cardiovascular: Reports no additional cardiovascular complaints Respiratory: Respiratory: Reports no additional respiratory complaints and Reports no additional respiratory complaints Gastrointestinal: Gastrointestinal: Reports as per HPI and Reports no additional gastrointestinal complaints Musculoskeletal: Musculoskeletal: Reports no additional musculoskeletal complaints Integumentary/Breasts: Skin/Breast: Reports system reviewed and no additional complaints, except as docu and Reports as per HPI Neurologic: Reports system reviewed and no additional complaints, except as documented, Reports as per HPI and Reports Normal hearing present Psychiatric: Psychiatric: Reports no additional psychiatric complaints and Reports as per HPI Endocrine: Endocrine: Reports no additional endocrine complaints Hematologic/Lymphatic: Hematologic/Lymphatic: Reports no additional hematologic/lymphatic complaints Allergic/Immunologic: Allergic/Immunologic: Reports no additional allergic/immunologic complaints [facility] Past Medical History Medical History Alcohol abuse Chondromalacia, patella Hyponatremia Left knee DJD Right knee DJD Tear of medial meniscus of left knee Tobacco abuse Surgical History Surgical History Hx of fracture of femur s/p reduction and intramedullary hip screw fixation, left hip 05/01/19 Family History Family History Father Acute myocardial infarction Hypertension Mother Breast cancer Hypertension Social History Social History Social History: 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 He lives alone. He is single. He smokes a pack a day and has done so for about 35-40 years. He drinks 6 beers a day. He smokes marijuana once a week. No history of IV drug use. Surrogate decision maker: Kale Leslie, brother. Code status: Full code. Smoking status: Current every day smoker Tobacco type: cigarettes Additional smoking assessment comments: Patient has smoked up to 2 packs of cigarettes a day. Alcohol intake: current Drinks per week: 21 Substance use: current Substance use type: marijuana Other substance usage details: occasional Last use: yesterday Lack of Transportation: No Lack of Food: Never True Current Housing: I Have Housing Concerned About Future Housing: No
[2022-02-04 22:31] LABS: Anion Gap 16 mmol/L (8-16); Blood Urea Nitrogen 10 mg/dL (9-20); Calcium 8.3 mg/dL (8.4-10.2); Carbon Dioxide 17 mmol/L (22-30); Chloride 89 mmol/L (98-107); Estimated CRCL calculation 91 ml/min; Estimated Glomerular Filt Rate > 60; Glucose 106 mg/dL (65-110); Potassium 3.5 mmol/L (3.4-5.0); Sodium 122 mmol/L (137-145)
[2022-02-05] VITALS (9 sets, daily range): BP systolic 87–111; BP diastolic 58–74; PULSE 84–97; RESP 16–19; TEMP 36.3–37.3; O2SAT 96–99
[2022-02-05 01:58] LABS: Appearance Urine Clear (Clear); Bilirubin Urine Negative (Negative); Blood Urine Negative (Negative); Color Urine Yellow (Yellow); Glucose Urine UA Negative (Negative); Ketones Urine 2+ mg/dL (Negative); Leukocyte Esterase Ur Negative LEU/UL (Negative); Nitrate Urine Negative (Negative); Protein Urine 1+ mg/dL (Negative); Specific Grav Ur 1.025 (1.001-1.035); Urobilinogen Urine 0.2 mg/dL (<2.0)
[2022-02-05 02:02] LABS: Bacteria Urine Trace /hpf; Mucus Urine Rare /lpf; WBC Urine 0-3 /hpf
[2022-02-05 02:08] LABS: Add Urine Microscopic? YES
[2022-02-05 02:37] LABS: Sodium 121 mmol/L (137-145)
[2022-02-05 02:59] LABS: Creatinine Urine 111.1 mg/dL; Total Protein Urine Random 20 mg/dL; Ur Ttl Prot Creatinine Ratio 0.18 mg/mg (0-0.20)
[2022-02-05 03:12] LABS: Sodium Urine Random 52 meq/L
[2022-02-05 03:44] LABS: Glucose Point of Care 95 mg/dl (65-105)
[2022-02-05 06:39] LABS: Anion Gap 11 mmol/L (8-16); Blood Urea Nitrogen 10 mg/dL (9-20); Calcium 8.3 mg/dL (8.4-10.2); Carbon Dioxide 19 mmol/L (22-30); Chloride 92 mmol/L (98-107); Estimated CRCL calculation 108 ml/min; Estimated Glomerular Filt Rate > 60; Glucose 118 mg/dL (65-110); Potassium 3.4 mmol/L (3.4-5.0); Sodium 122 mmol/L (137-145)
[2022-02-05 07:12] LABS: Cortisol Random 9.61 ug/dL
[2022-02-05 07:20] LABS: Basophils Absolute Auto 0.1 K/mm3 (0.0-0.1); Basophils Percent Auto 2.7 % (0.2-1.2); Eosinophils Percent Auto 0.7 % (0-4.4); Hematocrit 37.9 % (42.0-52.0); Hemoglobin 13.1 g/dL (14.0-18.0); Immature Granulocyte Absolute 0.02 K/mm3 (0.00-0.031); Immature Granulocyte Percent A 0.5 % (0-0.5); Lymphocytes Absolute Auto 0.94 K/mm3 (0.9-3.2); Lymphocytes Percent Auto 22.8 % (18.3-44.2); Mean Corpuscular HGB Conc 34.6 g/dl (32-36); Mean Corpuscular Hemoglobin 30.3 pg (26-34); Mean Corpuscular Volume 87.5 fl (80-100); Mean Platelet Volume 9.2 fl (7.4-10.4); Monocytes Absolute Auto 0.7 K/mm3 (0.1-0.6); Neutrophils Absolute Auto 2.4 K/mm3 (1.3-6.7); Neutrophils Percent Auto 57.3 % (45.5-73.1); Platelet Count Result 342 k/mm3 (150-375); Red Blood Count 4.33 M/mm3 (4.6-6.20); Red Cell Distribution Width 13.3 % (11.5-14.5); White Blood Count 4.1 K/mm3 (4.5-10.0)
[2022-02-05] MEDS: THIAMINE HCL 200 MG/2 ML VIAL 100 MG IV PUSH (08:30)
[2022-02-05] MEDS: FOLIC ACID 1 MG/0.2 ML INJ IV PUSH (08:30)
[2022-02-05 10:44] LABS: Sodium 122 mmol/L (137-145)
[2022-02-05 12:06] LABS: Glucose Point of Care 184 mg/dl (65-105)
--- NOTE | 2022-02-05 13:27 | PM.CNNEP ---
Assessment and Plan Assessment and plan (1) Hyponatremia: Code(s): E87.1 - Hypo-osmolality and hyponatremia Status: Acute Assessment and Plan: suspect acute on chronic sodium up to 130mmol/L on discharge in May 2021 (admission sodium 117mmol/L) on admission this time, sodium 118mmol/L goal of therapy is a rate of change in sodium of 6 - 8mmol/L over 24hrs -- so far in range evaluation to date: TSH and cortisol okay urine electrolytes prerenal serum/urine osmo, SPEP, UPEP all pending risk factors: alcohol intake smoking history lung disease/lung mass narcotics trial of IVFs given hypotension and pre-renal urine lytes follow trend of sodium (2) COVID: Code(s): U07.1 - COVID-19 Status: Acute Assessment and Plan: postive testing noted however, no hypoxia or respiratory symptoms supportive therapy (3) Hypotension: Code(s): I95.9 - Hypotension, unspecified Status: Acute Assessment and Plan: noted since admission element of volume depletion(?) trial of IVFs this afternoon follow trend of hemodynamics (4) Alcohol abuse: Code(s): F10.10 - Alcohol abuse, uncomplicated Status: Acute Assessment and Plan: on [facility] protocol thiamine and folic acid librium as needed for withdrawal symptoms Will continue to follow. History of Present Illness Reason for Consult Consult date: 02/05/22 Reason for consult: hyponatremia Chief Complaint Chief complaint: hyponatremia,dizziness,alcohol abuse,fall History of Present Illness Narrative: The patient is a 61-year-old male with a past medical history as outlined below who presented to [facility] Emergency room for further evaluation of recurrent falls. The patient is not the best historian so a great deal the information is obtained from review of electronic medical record as well as discussion with the ER physician yesterday evening. The patient reports that he lost his balance the day prior to admission and fell down his knees. He denies injury to his head but he did not have any further evaluation of this fall at that time. He reports no loss of consciousness or any type of symptoms prior to or after the fall. However, on the day of admission, he started to feel dizzy and fell a grand on the ground and landed on his knees once again. Following this fall, he presented to the ER for further assessment. Workup and evaluation emergency room demonstrated the patient to be hemodynamically stable and routine blood test demonstrated evidence hyponatremia which apparently is a chronic issue for the patient. CT scan of the head did not demonstrate any acute findings. Prior to her his laboratory findings, he did receive a L of normal saline given his history of dizziness and his sodium level did improve from 118-122 millimoles per L. interestingly, the patient was also found to be Covid 19 positive. Given his constellation of symptoms that led to his presentation to the ER in conjunction with his laboratory abnormalities with regard to his low sodium level, he was admitted in the hospital for further evaluation and therapy. Since his admission, his sodium level has been relatively stable at 122 millimoles per L. he has been instituted to a free water fluid restriction which she is not very happy about at the time my visit Renal consultation was requested due to his hyponatremia. From review his records, this appears to be somewhat of an acute on chronic issue/problem. He was last hospitalized here in May of 2021 for this same issue and his extensive workup and evaluation at that time seem to indicate that his sodium level was a manifestation of his alcohol intake, increased free water intake, and lung disease with regard to his smoking history and a newly discovered lung mass. He denied further workup/evaluation of this lung mass but it would appear that he is status post surg
[2022-02-05] MEDS: SODIUM CHLORIDE 0.9% IV 500 ML 100 ML IV CONT (15:00)
[2022-02-05 15:13] LABS: Sodium 124 mmol/L (137-145)
--- NOTE | 2022-02-05 15:50 | PM.IMPN ---
Progress Note: A&P Assessment and Plan (1) Acute hyponatremia: Code(s): E87.1 - Hypo-osmolality and hyponatremia Status: Acute Assessment and Plan: acute on chronic. suspect multifactorial in etiology given patient's history of alcohol abuse and lung disease Sodium 118 on arrival appreciate nephrology consultation currently receiving normal saline 500 mL at 100 ml/hr per nephrology recommendations 1500 ml fluid restriction implemented TSH is normal AM cortisol within normal limits Continue to monitor sodium levels closely and monitor for appropriate rate of correction. Will recheck after completion of fluids (2) COVID: Code(s): U07.1 - COVID-19 Status: Acute Assessment and Plan: COVID PCR positive on 02/04/2022 patient has no oxygen requirement therefore no indication for steroids or antivirals at this time supportive care continue isolation precautions monitor oxygen levels (3) Hypotension: Code(s): I95.9 - Hypotension, unspecified Status: Acute Assessment and Plan: blood pressure has been soft today in the 90s systolic. patient is asymptomatic continue with IV fluids and monitor BP trends closely avoid narcotics or other medications that may decrease BP (4) Alcohol abuse: Code(s): F10.10 - Alcohol abuse, uncomplicated Status: Acute Assessment and Plan: patient endorses drinking 3-4 beers per day continue with CIWA protocol. Scores 0-3 today thiamine and folic acid librium as needed for withdrawal symptoms appreciate care coordination to provide resources for alcohol cessation (5) Tobacco abuse: Code(s): Z72.0 - Tobacco use Status: Acute Assessment and Plan: patient has cut back to 1 pack every 5 days continue nicotine patch during admission although smoking cessation is imperative, at this time would benefit from focus on alcohol cessation (6) Fall: Code(s): W19.XXXA - Unspecified fall, initial encounter Status: Acute Assessment and Plan: Patient suffered fall at home. No precipitating symptoms. Denies hitting head or LOC. implement fall precautions appreciate PT/OT eval Subjective Date/time seen: 02/05/22 15:50 Interval history: Date of service: 02/05/2022 Greg Leslie is a 61-year-old male with a history of alcohol abuse, tobacco abuse, chronic hyponatremia, questionable history of left lung lobectomy secondary to possible lung cancer who is seen in follow-up for COVID-19 and acute hyponatremia. The patient is a somewhat poor historian. He is A&O x4 and answers all questions appropriately, however does appear somewhat confused and is not able to provide details regarding his medical history. He states that he is feeling well today. He denies shortness of breath or chest pain. He does have occasional nonproductive cough. He denies any recent sick contacts. He denies muscle aches or cramping. He admits to falling at home but cannot specify details of fall or states the frequency. He denies precipitating symptoms such as dizziness or lightheadedness. He states he believes that he simply tripped. when he fell prior to presentation, he was not able to get himself up. he denies weakness in his upper or lower extremities and denies generalized weakness. He denies tremors, hallucinations, anxiety, agitation. Admits to drinking 3-4 beers per day. also admits to smoking 1 pack of cigarettes every 5 days as he has been actively trying to cut down. He denies fevers, chills, nausea, vomiting. He is tolerating his diet but states he does not like the food and did not eat very much. No change in sense of taste or smell. Denies urinary symptoms including dysuria, hematuria, urgency, frequency. Denies diarrhea. Review of Systems Review of Systems: All systems reviewed & are unremarkable except as noted in HPI and below Exam Singh
[2022-02-05 21:53] LABS: Sodium 127 mmol/L (137-145)
[2022-02-06] VITALS (8 sets, daily range): BP systolic 96–103; BP diastolic 60–75; PULSE 82–98; RESP 16–18; TEMP 36.3–37.1; O2SAT 95–98
[2022-02-06 05:26] LABS: Glucose Point of Care 88 mg/dl (65-105)
[2022-02-06 06:31] LABS: Hematocrit 37.7 % (42.0-52.0); Hemoglobin 12.8 g/dL (14.0-18.0); Mean Corpuscular Hemoglobin 29.9 pg (26-34); Mean Corpuscular Volume 88.1 fl (80-100); Mean Platelet Volume 9.1 fl (7.4-10.4); Platelet Count Result 292 k/mm3 (150-375); Red Blood Count 4.28 M/mm3 (4.6-6.20); Red Cell Distribution Width 13.7 % (11.5-14.5); White Blood Count 4.9 K/mm3 (4.5-10.0)
[2022-02-06 06:54] LABS: Anion Gap 11 mmol/L (8-16); Blood Urea Nitrogen 8 mg/dL (9-20); Calcium 8.2 mg/dL (8.4-10.2); Carbon Dioxide 20 mmol/L (22-30); Chloride 94 mmol/L (98-107); Estimated CRCL calculation 108 ml/min; Estimated Glomerular Filt Rate > 60; Glucose 132 mg/dL (65-110); Potassium 3.5 mmol/L (3.4-5.0); Sodium 125 mmol/L (137-145)
[2022-02-06] MEDS: FOLIC ACID 1 MG/0.2 ML INJ IV PUSH (08:38)
[2022-02-06] MEDS: THIAMINE HCL 200 MG/2 ML VIAL 100 MG IV PUSH (08:38)
[2022-02-06 12:04] LABS: Glucose Point of Care 104 mg/dl (65-105)
--- NOTE | 2022-02-06 13:34 | PM.PNNEP ---
Progress Note: A&P Assessment and Plan (1) Hyponatremia: Code(s): E87.1 - Hypo-osmolality and hyponatremia Status: Acute Assessment and Plan: suspect acute on chronic sodium up to 130mmol/L on discharge in May 2021 (admission sodium 117mmol/L) on admission this time, sodium 118mmol/L unclear what his sodium has running since last discharge goal of therapy is a rate of change in sodium of 6 - 8mmol/L over 24hrs -- so far in range evaluation to date: TSH and cortisol okay urine electrolytes prerenal serum/urine osmo, SPEP, UPEP all pending (but results noted on last check with last hospitalization) risk factors: alcohol intake smoking history lung disease/lung mass narcotics suspect etiology due to alcohol use, increased free water intake, and underlying lung disease/mass continue fluid restriction and will add demeclocycline (since he still has a lung mass) follow trend of repeat sodiums (2) COVID: Code(s): U07.1 - COVID-19 Status: Acute Assessment and Plan: postive testing noted however, no hypoxia or respiratory symptoms supportive therapy (3) Hypotension: Code(s): I95.9 - Hypotension, unspecified Status: Acute Assessment and Plan: noted since admission element of volume depletion(?) s/p trial of IVFs yesterday with some improvement in sodium follow trend of hemodynamics (4) Alcohol abuse: Code(s): F10.10 - Alcohol abuse, uncomplicated Status: Acute Assessment and Plan: on [facility] protocol thiamine and folic acid librium as needed for withdrawal symptoms Will continue to follow. Subjective Date/time seen: 02/06/22 13:34 No new issues or complaints voiced; sodium improved to 127 with IVF challenge with most recent value 126; not happy about fluid restriction but no apparent distress noted; no issues overnight or earlier this morning. Exam Narrative: General: WD/WN male in NAD Heart: normal S1 and S2; no rub Lungs: clear to auscultation Abdomen: soft, nontender, nondistended, positive bowel sounds Extremities: no cyanosis or clubbing; no edema Skin: warm and dry Objective Data Vital Signs Vital Signs: Vital Signs Temp Pulse Resp BP Pulse Ox O2 Del Method 02/06/22 12:00 93 02/06/22 08:00 82 02/06/22 12:00 103/60 02/06/22 12:56 Room Air 02/06/22 12:14 36.6 C 98 16 103/60 96 02/06/22 08:30 Room Air 02/06/22 08:00 36.3 C L 92 16 97/75 L 95 02/06/22 04:00 36.4 C 89 18 96/68 L 97 02/06/22 04:00 84 02/06/22 00:00 84 02/05/22 20:00 86 02/06/22 00:00 36.9 C 88 18 97 02/05/22 20:00 36.4 C 84 19 97 02/05/22 21:30 Room Air Intake/Output Intake/Output: Intake & Output 02/03/22 02/04/22 02/05/22 02/06/22 23:59 23:59 23:59 23:59 Intake Total 1000 990 990 Output Total 725 Balance 1000 265 990 Meds/Results Medications: Active Medications Generic Name Dose Route Start Last Admin Trade Name Freq PRN Reason Stop Dose Admin Acetaminophen 650 mg 02/05/22 16:01 Acetaminophen 325 Mg Tablet PO Q4H PRN Pain, headache, fever Albuterol 2 puff 02/05/22 16:01 Albuterol Sulfate (*Sp) Aerosol 1 Puff INHALATION Q6HRT PRN Shortness Of Breath Chlordiazepoxide HCl 25 mg 02/04/22 23:47 Chlordiazepoxide (*Crx) 25 Mg Capsule PO Q6H PRN Withdrawal Demeclocycline HCl 150 mg 02/06/22 17:00 Demeclocycline Hcl 150 Mg Tablet PO QID YAMEL Enoxaparin Sodium 40 mg 02/06/22 16:00 Enoxaparin 40 Mg/0.4 Ml Syringe SUB-Q DAILY YAMEL Folic Acid 1 mg 02/05/22 09:00 02/06/22 08:38 Folic Acid 1 Mg/0.2 Ml Inj IV PUSH 1 mg QAM YAMEL Administration Lorazepam 2 mg 02/04/22 23:47 Lorazepam Inj (*Crx) 2 Mg/Ml Vial IV PUSH Q4H PRN Withdrawal Nicotine 1 patch 02/05/22 00:10 02/05/22 20:55 Nicotine (*Pbkc) 21 M
--- NOTE | 2022-02-06 13:34 | P.PNNP_ITS ---
Progress Note: A&P Assessment and Plan (1) Hyponatremia: Code(s): E87.1 - Hypo-osmolality and hyponatremia Status: Acute Assessment and Plan: * suspect acute on chronic * sodium up to 130mmol/L on discharge in May 2021 (admission sodium 117mmol/L) * on admission this time, sodium 118mmol/L * unclear what his sodium has running since last discharge * goal of therapy is a rate of change in sodium of 6 - 8mmol/L over 24hrs -- so far in range * evaluation to date: * TSH and cortisol okay * urine electrolytes prerenal * serum/urine osmo, SPEP, UPEP all pending (but results noted on last check with last hospitalization) * risk factors: * alcohol intake * smoking history * lung disease/lung mass * narcotics * suspect etiology due to alcohol use, increased free water intake, and underlying lung disease/mass * continue fluid restriction and will add demeclocycline (since he still has a lung mass) * follow trend of repeat sodiums (2) COVID: Code(s): U07.1 - COVID-19 Status: Acute Assessment and Plan: * postive testing noted * however, no hypoxia or respiratory symptoms * supportive therapy (3) Hypotension: Code(s): I95.9 - Hypotension, unspecified Status: Acute Assessment and Plan: * noted since admission * element of volume depletion(?) * s/p trial of IVFs yesterday with some improvement in sodium * follow trend of hemodynamics (4) Alcohol abuse: Code(s): F10.10 - Alcohol abuse, uncomplicated Status: Acute Assessment and Plan: * on [facility] protocol * thiamine and folic acid * librium as needed for withdrawal symptoms Will continue to follow. Subjective Date/time seen: 02/06/22 13:34 No new issues or complaints voiced; sodium improved to 127 with IVF challenge with most recent value 126; not happy about fluid restriction but no apparent distress noted; no issues overnight or earlier this morning. Exam Narrative: General: WD/WN male in NAD Heart: normal S1 and S2; no rub Lungs: clear to auscultation Abdomen: soft, nontender, nondistended, positive bowel sounds Extremities: no cyanosis or clubbing; no edema Skin: warm and dry Objective Data Vital Signs Vital Signs: Vital Signs Temp Pulse Resp BP Pulse Ox O2 Del Method 02/06/22 12:00 93 02/06/22 08:00 82 02/06/22 12:00 103/60 02/06/22 12:56 Room Air 02/06/22 12:14 36.6 C 98 16 103/60 96 02/06/22 08:30 Room Air 02/06/22 08:00 36.3 C L 92 16 97/75 L 95 02/06/22 04:00 36.4 C 89 18 96/68 L 97 02/06/22 04:00 84 02/06/22 00:00 84 02/05/22 20:00 86 02/06/22 00:00 36.9 C 88 18 97 02/05/22 20:00 36.4 C 84 19 97 02/05/22 21:30 Room Air Intake/Output Intake/Output: Intake & Output 02/03/22 02/04/22 02/05/22 02/06/22 23:59 23:59 23:59 23:59 Intake Total 1000 990 990 Output Total 725 Balance 1000 265 990 Meds/Results Medications: Active Medications Generic Name Dose Route Start Last Admin Trade Name Freq PRN Reason Stop Dose Admin Acetaminoph
[2022-02-06 14:03] LABS: Sodium 126 mmol/L (137-145)
--- NOTE | 2022-02-06 15:04 | PM.IMPN ---
Progress Note: A&P Assessment and Plan (1) Acute hyponatremia: Code(s): E87.1 - Hypo-osmolality and hyponatremia Status: Acute Assessment and Plan: acute on chronic. suspect multifactorial in etiology given patient's history of alcohol abuse and lung disease Sodium 118 on arrival appreciate nephrology consultation sodium improving at appropriate rate. 125 today continue 1500 ml fluid restriction TSH is normal AM cortisol within normal limits Continue to monitor sodium levels closely and monitor for appropriate rate of correction. Will recheck after completion of fluids (2) COVID: Code(s): U07.1 - COVID-19 Status: Acute Assessment and Plan: COVID PCR positive on 02/04/2022 patient has no oxygen requirement therefore no indication for steroids or antivirals at this time supportive care continue isolation precautions monitor oxygen levels (3) Hypotension: Code(s): I95.9 - Hypotension, unspecified Status: Acute Assessment and Plan: blood pressure has been soft today in the 90s systolic. Improved today with BP 103/60 continue with IV fluids and monitor BP trends closely avoid narcotics or other medications that may decrease BP (4) Alcohol abuse: Code(s): F10.10 - Alcohol abuse, uncomplicated Status: Acute Assessment and Plan: patient endorses drinking 3-4 beers per day continue with CIWA protocol. Scores 1-2 today thiamine and folic acid librium as needed for withdrawal symptoms, patient has not required this appreciate care coordination to provide resources for alcohol cessation (5) Tobacco abuse: Code(s): Z72.0 - Tobacco use Status: Acute Assessment and Plan: patient has cut back to 1 pack every 5 days continue nicotine patch during admission although smoking cessation is imperative, at this time would benefit from focus on alcohol cessation (6) Fall: Code(s): W19.XXXA - Unspecified fall, initial encounter Status: Acute Assessment and Plan: Patient suffered fall at home. No precipitating symptoms. Denies hitting head or LOC. implement fall precautions appreciate PT/OT eval Subjective Date/time seen: 02/06/22 15:04 Interval history: Date of service: 02/05/2022 Greg Leslie is a 61-year-old male with a history of alcohol abuse, tobacco abuse, chronic hyponatremia, history of partial left pneumonectomy secondary to possible lung cancer who is seen in follow-up for COVID-19 and acute hyponatremia. he is feeling well today. He was able to get up out of bed and is sitting in a chair. He is tolerating his diet without difficulty. He denies shortness of breath. No cough. No chest pain. Overall notes no significant changes and reports feeling well. Denies dizziness, lightheadedness, weakness, fever, chills, nausea, vomiting, abdominal pain. Review of Systems Review of Systems: All systems reviewed & are unremarkable except as noted in HPI and below Exam Narrative: General: thin, well-appearing 61-year-old male, sitting up in bed, comfortable, NARD Neuro: awake, alert and oriented x4, speech clear, no focal neuro deficits noted, no tremor HEENMT: normocephalic, atraumatic, EOMI, sclerae anicteric, moist oral mucosa Respiratory: clear to auscultation bilaterally, nonlabored breathing Cardio: regular rate, regular rhythm with S1-S2 Abdomen: nondistended, normoactive bowel sounds, soft, nontender to palpation Extremities: no edema, erythema, or tenderness to palpation Skin: no rashes or lesions, warm and dry Psych: appropriate mood and affect, judgment and insight fair Objective Data Vital Signs Vital Signs: Vital Signs - 24 hr 02/05/22 16:00 02/05/22 16:00 02/05/22 21:30 Temperature 99.2 F Pulse Rate 92 90 Respiratory Rate 16 Blood Pressure 96/59 L Pulse Oximetry 97 Oxygen Delivery Room Air 11
[2022-02-06] MEDS: ENOXAPARIN 40 MG/0.4 ML SYRINGE SUB-Q (17:34)
[2022-02-06] MEDS: DEMECLOCYCLINE HCL 150 MG TABLET PO ×2 (17:34→20:24)
[2022-02-06 18:20] LABS: Glucose Point of Care 98 mg/dl (65-105)
[2022-02-07] VITALS: PULSE 83
[2022-02-07 04:00] VITALS: PULSE 85
[2022-02-07 06:10] LABS: Glucose Point of Care 92 mg/dl (65-105)
[2022-02-07 08:00] VITALS: BP 92/68; PULSE 87; RESP 16; TEMP 36.7; O2SAT 100
[2022-02-07] MEDS: DEMECLOCYCLINE HCL 150 MG TABLET PO ×4 (08:04→20:32)
[2022-02-07] MEDS: FOLIC ACID 1 MG/0.2 ML INJ IV PUSH (12:05)
[2022-02-07] MEDS: ENOXAPARIN 40 MG/0.4 ML SYRINGE SUB-Q (12:05)
[2022-02-07] MEDS: THIAMINE HCL 200 MG/2 ML VIAL 100 MG IV PUSH (12:05)
[2022-02-07 12:14] LABS: Hematocrit 36.3 % (42.0-52.0); Hemoglobin 12.2 g/dL (14.0-18.0); Mean Corpuscular HGB Conc 33.6 g/dl (32-36); Mean Corpuscular Volume 89.4 fl (80-100); Mean Platelet Volume 9.1 fl (7.4-10.4); Platelet Count Result 284 k/mm3 (150-375); Red Blood Count 4.06 M/mm3 (4.6-6.20); White Blood Count 6.1 K/mm3 (4.5-10.0)
[2022-02-07 12:18] LABS: Glucose Point of Care 108 mg/dl (65-105)
--- NOTE | 2022-02-07 12:26 | P.PNNP_ITS ---
Progress Note: A&P Assessment and Plan (1) Hyponatremia: Code(s): E87.1 - Hypo-osmolality and hyponatremia Status: Acute Assessment and Plan: * suspect acute on chronic * sodium up to 130mmol/L on discharge in May 2021 (admission sodium 117mmol/L) * on admission this time, sodium 118mmol/L * unclear what his sodium has running since last discharge * goal of therapy is a rate of change in sodium of 6 - 8mmol/L over 24hrs -- so far in range * evaluation to date: * TSH and cortisol okay * urine electrolytes prerenal * serum/urine osmo, SPEP, UPEP all pending (but results noted on last check with last hospitalization) * risk factors: * alcohol intake * smoking history * lung disease/lung mass * narcotics * suspect etiology due to alcohol use, increased free water intake, and underlying lung disease/mass * continue fluid restriction and will add demeclocycline (since he still has a lung mass) * follow trend of repeat sodiums (2) COVID: Code(s): U07.1 - COVID-19 Status: Acute Assessment and Plan: * postive testing noted * however, no hypoxia or respiratory symptoms * supportive therapy (3) Hypotension: Code(s): I95.9 - Hypotension, unspecified Status: Acute Assessment and Plan: * noted since admission * element of volume depletion(?) * s/p trial of IVFs yesterday with some improvement in sodium * follow trend of hemodynamics (4) Alcohol abuse: Code(s): F10.10 - Alcohol abuse, uncomplicated Status: Acute Assessment and Plan: * on [facility] protocol * thiamine and folic acid * librium as needed for withdrawal symptoms Will continue to follow. Subjective Date/time seen: 02/07/22 12:26 No specific issues or concerns voiced at this time; sodium level continues to slowly improve with current interventions; no events overnight or earlier this AM. Exam Narrative: General: WD/WN male in NAD Heart: normal S1 and S2; no rub Lungs: clear to auscultation Abdomen: soft, nontender, nondistended, positive bowel sounds Extremities: no cyanosis or clubbing; no edema Skin: warm and intact Objective Data Vital Signs Vital Signs: Vital Signs Temp Pulse Resp BP Pulse Ox O2 Del Method 02/07/22 08:00 100 Room Air 11/12/22 07:50 Room Air 02/07/22 08:00 36.7 C 87 16 92/68 L 100 02/07/22 04:00 85 02/07/22 00:00 83 02/06/22 20:00 86 02/06/22 20:00 Room Air 02/06/22 20:00 36.6 C 88 17 97/65 L 98 02/06/22 16:00 89 02/06/22 18:19 37.1 C 91 16 103/71 97 02/06/22 16:00 103/60 Intake/Output Intake/Output: Intake & Output 02/04/22 02/05/22 02/06/22 02/07/22 23:59 23:59 23:59 23:59 Intake Total 6907 248 7715 870 Output Total 725 200 250 Balance 3963 564 3157 620 Meds/Results Medications: Active Medications Generic Name Dose Route Start Last Admin Trade Name Freq PRN Reason Stop Dose Admin Acetaminophen 650 mg 02/05/22 16:01 Acetaminophen 325 Mg Tablet PO Q4H PRN Pain, headache, fever Albuterol 2 puf
--- NOTE | 2022-02-07 12:26 | PM.PNNEP ---
Progress Note: A&P Assessment and Plan (1) Hyponatremia: Code(s): E87.1 - Hypo-osmolality and hyponatremia Status: Acute Assessment and Plan: suspect acute on chronic sodium up to 130mmol/L on discharge in May 2021 (admission sodium 117mmol/L) on admission this time, sodium 118mmol/L unclear what his sodium has running since last discharge goal of therapy is a rate of change in sodium of 6 - 8mmol/L over 24hrs -- so far in range evaluation to date: TSH and cortisol okay urine electrolytes prerenal serum/urine osmo, SPEP, UPEP all pending (but results noted on last check with last hospitalization) risk factors: alcohol intake smoking history lung disease/lung mass narcotics suspect etiology due to alcohol use, increased free water intake, and underlying lung disease/mass continue fluid restriction and will add demeclocycline (since he still has a lung mass) follow trend of repeat sodiums (2) COVID: Code(s): U07.1 - COVID-19 Status: Acute Assessment and Plan: postive testing noted however, no hypoxia or respiratory symptoms supportive therapy (3) Hypotension: Code(s): I95.9 - Hypotension, unspecified Status: Acute Assessment and Plan: noted since admission element of volume depletion(?) s/p trial of IVFs yesterday with some improvement in sodium follow trend of hemodynamics (4) Alcohol abuse: Code(s): F10.10 - Alcohol abuse, uncomplicated Status: Acute Assessment and Plan: on [facility] protocol thiamine and folic acid librium as needed for withdrawal symptoms Will continue to follow. Subjective Date/time seen: 02/07/22 12:26 No specific issues or concerns voiced at this time; sodium level continues to slowly improve with current interventions; no events overnight or earlier this AM. Exam Narrative: General: WD/WN male in NAD Heart: normal S1 and S2; no rub Lungs: clear to auscultation Abdomen: soft, nontender, nondistended, positive bowel sounds Extremities: no cyanosis or clubbing; no edema Skin: warm and intact Objective Data Vital Signs Vital Signs: Vital Signs Temp Pulse Resp BP Pulse Ox O2 Del Method 02/07/22 08:00 100 Room Air 02/07/22 07:50 Room Air 02/07/22 08:00 36.7 C 87 16 92/68 L 100 02/07/22 04:00 85 02/07/22 00:00 83 02/06/22 20:00 86 02/06/22 20:00 Room Air 02/06/22 20:00 36.6 C 88 17 97/65 L 98 02/06/22 16:00 89 02/06/22 18:19 37.1 C 91 16 103/71 97 02/06/22 16:00 103/60 Intake/Output Intake/Output: Intake & Output 02/04/22 02/05/22 02/06/22 02/07/22 23:59 23:59 23:59 23:59 Intake Total 5261 030 9472 870 Output Total 725 200 250 Balance 9134 349 8108 620 Meds/Results Medications: Active Medications Generic Name Dose Route Start Last Admin Trade Name Freq PRN Reason Stop Dose Admin Acetaminophen 650 mg 02/05/22 16:01 Acetaminophen 325 Mg Tablet PO Q4H PRN Pain, headache, fever Albuterol 2 puff 02/05/22 16:01 Albuterol Sulfate (*Sp) Aerosol 1 Puff INHALATION Q6HRT PRN Shortness Of Breath Chlordiazepoxide HCl 25 mg 02/04/22 23:47 Chlordiazepoxide (*Crx) 25 Mg Capsule PO Q6H PRN Withdrawal Demeclocycline HCl 150 mg 02/06/22 17:00 02/07/22 12:05 Demeclocycline Hcl 150 Mg Tablet PO 150 mg QID YAMEL Administration Enoxaparin Sodium 40 mg 02/06/22 16:00 02/07/22 12:05 Enoxaparin 40 Mg/0.4 Ml Syringe SUB-Q 40 mg DAILY YAMEL Administration Folic Acid 1 mg 02/05/22 09:00 02/07/22 12:05 Folic Acid 1 Mg/0.2 Ml Inj IV PUSH 1 mg QAM YAMEL Administration Lorazepam 2 mg 02/04/22 23:47 Lorazepam Inj (*Crx) 2 Mg/Ml Vial IV PUSH Q4H PRN Withdrawal Nicotine 1 patch 02/05/22 00:10 02/06/22 20:24 Nicotine (*Pbkc) 21 Mg Patch TOPICAL Not Given HS [facility] Ondansetron HCl
[2022-02-07 12:27] LABS: Anion Gap 10 mmol/L (8-16); Blood Urea Nitrogen 8 mg/dL (9-20); Calcium 8.4 mg/dL (8.4-10.2); Carbon Dioxide 25 mmol/L (22-30); Chloride 92 mmol/L (98-107); Estimated CRCL calculation 91 ml/min; Estimated Glomerular Filt Rate > 60; Glucose 90 mg/dL (65-110); Potassium 3.6 mmol/L (3.4-5.0); Sodium 127 mmol/L (137-145)
--- NOTE | 2022-02-07 13:04 | P.PNIM_ITS ---
Progress Note: A&P Assessment and Plan (1) Acute hyponatremia: Code(s): E87.1 - Hypo-osmolality and hyponatremia Status: Acute Assessment and Plan: Acute on chronic. suspect multifactorial in etiology given patient's history of alcohol abuse and lung disease * Sodium 118 on arrival * appreciate nephrology consultation * sodium improving at appropriate rate. 127 today * continue 1500 ml fluid restriction * TSH is normal * AM cortisol within normal limits * Continue to monitor sodium levels closely and monitor for appropriate rate of correction. * Continue demeclocycline 150 mg QID per nephrology recommendations (2) COVID: Code(s): U07.1 - COVID-19 Status: Acute Assessment and Plan: COVID PCR positive on 02/04/2022 * patient has no oxygen requirement therefore no indication for steroids or antivirals at this time * supportive care * continue isolation precautions * monitor oxygen levels (3) Hypotension: Code(s): I95.9 - Hypotension, unspecified Status: Acute Assessment and Plan: blood pressure running low but stable in the 90s-100 systolic. * monitor BP trends closely * avoid narcotics or other medications that may decrease BP (4) Alcohol abuse: Code(s): F10.10 - Alcohol abuse, uncomplicated Status: Acute Assessment and Plan: patient endorses drinking 3-4 beers per day * continue with CIWA protocol. Scores 0 today * thiamine and folic acid * librium as needed for withdrawal symptoms, patient has not required this * appreciate care coordination to provide resources for alcohol cessation (5) Tobacco abuse: Code(s): Z72.0 - Tobacco use Status: Acute Assessment and Plan: patient has cut back to 1 pack every 5 days * continue nicotine patch during admission * although smoking cessation is imperative, at this time would benefit from focus on alcohol cessation (6) Fall: Code(s): W19.XXXA - Unspecified fall, initial encounter Status: Acute Assessment and Plan: Patient suffered fall at home. No precipitating symptoms. Denies hitting head or LOC. * fall precautions * appreciate PT/OT eval (7) Lung mass: Code(s): R91.8 - Other nonspecific abnormal finding of lung field Status: Acute Assessment and Plan: patient being evaluated for lung mass. He is s/p partial left pneumonectomy, however left lung mass remains on CXR this admission. * He is maintaining adequate oxygen saturations on room air * He will need to follow up with his primary care provider and management trainer for continued monitoring Subjective Date/time seen: 02/07/22 13:04 Interval history: Date of service: 02/07/2022 Greg Leslie is a 61-year-old male with a history of alcohol abuse, tobacco abuse, chronic hyponatremia, history of partial left pneumonectomy secondary to possible lung cancer who is seen in follow-up for COVID-19 and acute hypona tremia. he is doing well today. He is eager for discharge home. He has no complaints. His appetite is good. He denies shortness of breath, cough, chest pain. No nausea, vomiting, fever, chills. Review of Systems Review of Systems: All systems reviewed & are unremarkable except as noted in HPI and below Exam Narrative: General: thin, well-appearing 61-year-old male, sitting up in bed, comfortable, NARD Neuro: awake, alert and oriented x4, speech sander
--- NOTE | 2022-02-07 13:04 | PM.IMPN ---
Progress Note: A&P Assessment and Plan (1) Acute hyponatremia: Code(s): E87.1 - Hypo-osmolality and hyponatremia Status: Acute Assessment and Plan: Acute on chronic. suspect multifactorial in etiology given patient's history of alcohol abuse and lung disease Sodium 118 on arrival appreciate nephrology consultation sodium improving at appropriate rate. 127 today continue 1500 ml fluid restriction TSH is normal AM cortisol within normal limits Continue to monitor sodium levels closely and monitor for appropriate rate of correction. Continue demeclocycline 150 mg QID per nephrology recommendations (2) COVID: Code(s): U07.1 - COVID-19 Status: Acute Assessment and Plan: COVID PCR positive on 02/04/2022 patient has no oxygen requirement therefore no indication for steroids or antivirals at this time supportive care continue isolation precautions monitor oxygen levels (3) Hypotension: Code(s): I95.9 - Hypotension, unspecified Status: Acute Assessment and Plan: blood pressure running low but stable in the 90s-100 systolic. monitor BP trends closely avoid narcotics or other medications that may decrease BP (4) Alcohol abuse: Code(s): F10.10 - Alcohol abuse, uncomplicated Status: Acute Assessment and Plan: patient endorses drinking 3-4 beers per day continue with CIWA protocol. Scores 0 today thiamine and folic acid librium as needed for withdrawal symptoms, patient has not required this appreciate care coordination to provide resources for alcohol cessation (5) Tobacco abuse: Code(s): Z72.0 - Tobacco use Status: Acute Assessment and Plan: patient has cut back to 1 pack every 5 days continue nicotine patch during admission although smoking cessation is imperative, at this time would benefit from focus on alcohol cessation (6) Fall: Code(s): W19.XXXA - Unspecified fall, initial encounter Status: Acute Assessment and Plan: Patient suffered fall at home. No precipitating symptoms. Denies hitting head or LOC. fall precautions appreciate PT/OT eval (7) Lung mass: Code(s): R91.8 - Other nonspecific abnormal finding of lung field Status: Acute Assessment and Plan: patient being evaluated for lung mass. He is s/p partial left pneumonectomy, however left lung mass remains on CXR this admission. He is maintaining adequate oxygen saturations on room air He will need to follow up with his primary care provider and staff software engineer for continued monitoring Subjective Date/time seen: 02/07/22 13:04 Interval history: Date of service: 02/07/2022 Greg Leslie is a 61-year-old male with a history of alcohol abuse, tobacco abuse, chronic hyponatremia, history of partial left pneumonectomy secondary to possible lung cancer who is seen in follow-up for COVID-19 and acute hyponatremia. he is doing well today. He is eager for discharge home. He has no complaints. His appetite is good. He denies shortness of breath, cough, chest pain. No nausea, vomiting, fever, chills. Review of Systems Review of Systems: All systems reviewed & are unremarkable except as noted in HPI and below Exam Narrative: General: thin, well-appearing 61-year-old male, sitting up in bed, comfortable, NARD Neuro: awake, alert and oriented x4, speech clear, no focal neuro deficits noted, no tremor HEENMT: normocephalic, atraumatic, EOMI, sclerae anicteric, moist oral mucosa Respiratory: clear to auscultation bilaterally, nonlabored breathing Cardio: regular rate, regular rhythm with S1-S2 Abdomen: nondistended, normoactive bowel sounds, soft, nontender to palpation Extremities: no edema, erythema, or tenderness to palpation Skin: no rashes or lesions, warm and dry Psych: appropriate mood and affect, judgment and insight fair Objective [place]
[2022-02-07 13:55] VITALS: BP 111/74; PULSE 87; RESP 16; TEMP 36.7; O2SAT 99
[2022-02-07 16:00] VITALS: BP 100/70; PULSE 84; RESP 16; TEMP 36.8; O2SAT 100
[2022-02-07 20:00] VITALS: BP 117/73; PULSE 77; RESP 18; TEMP 36.6; O2SAT 99
[2022-02-07 20:38] LABS: Glucose Point of Care 103 mg/dl (65-105)
[2022-02-08] VITALS: BP 120/70; PULSE 81; RESP 18; TEMP 36.6; O2SAT 98
[2022-02-08 04:00] VITALS: BP 164/64; PULSE 79; PULSE 80; RESP 18; TEMP 36.6; O2SAT 98
[2022-02-08 04:22] LABS: Albumin 3.6 g/dL (3.8-4.8); Alpha 1 Globulin 0.4 g/dL (0.2-0.3); Alpha 2 Globulin 0.8 g/dL (0.5-0.9); Beta 1 Globulin 0.4 g/dL (0.4-0.6); Gamma Globulin 1.2 g/dL (0.8-1.7); Protein, Total 6.7 g/dL (6.1-8.1)
[2022-02-08 06:03] LABS: Glucose Point of Care 92 mg/dl (65-105)
[2022-02-08 06:53] LABS: Hematocrit 37.7 % (42.0-52.0); Hemoglobin 12.4 g/dL (14.0-18.0); Mean Corpuscular HGB Conc 32.9 g/dl (32-36); Mean Corpuscular Hemoglobin 29.8 pg (26-34); Mean Corpuscular Volume 90.6 fl (80-100); Mean Platelet Volume 8.9 fl (7.4-10.4); Platelet Count Result 243 k/mm3 (150-375); Red Blood Count 4.16 M/mm3 (4.6-6.20); White Blood Count 4.5 K/mm3 (4.5-10.0)
[2022-02-08 07:07] LABS: Anion Gap 11 mmol/L (8-16); Blood Urea Nitrogen 7 mg/dL (9-20); Calcium 8.2 mg/dL (8.4-10.2); Carbon Dioxide 23 mmol/L (22-30); Chloride 95 mmol/L (98-107); Estimated CRCL calculation 108 ml/min; Estimated Glomerular Filt Rate > 60; Glucose 112 mg/dL (65-110); Potassium 3.7 mmol/L (3.4-5.0); Sodium 129 mmol/L (137-145)
[2022-02-08 08:00] VITALS: BP 160/65; PULSE 82; PULSE 84; RESP 18; TEMP 36.6; O2SAT 99
[2022-02-08] MEDS: ENOXAPARIN 40 MG/0.4 ML SYRINGE SUB-Q (08:10)
[2022-02-08] MEDS: DEMECLOCYCLINE HCL 150 MG TABLET PO ×2 (08:11→13:43)
[2022-02-08] MEDS: FOLIC ACID 1 MG/0.2 ML INJ IV PUSH (08:11)
[2022-02-08] MEDS: THIAMINE HCL 200 MG/2 ML VIAL 100 MG IV PUSH (08:11)
[2022-02-08 12:00] VITALS: BP 120/70; PULSE 80; PULSE 88; RESP 16; TEMP 36.7; O2SAT 99
--- NOTE | 2022-02-08 12:22 | P.DS_ITS ---
DS: Admitting Diagnosis Discharge Date 02/08/2022 Admitting Diagnosis Hyponatremia DS: Discharge Diagnosis Discharge Diagnosis (1) Acute hyponatremia: Code(s): E87.1 - Hypo-osmolality and hyponatremia Status: Acute Assessment and Plan: Acute on chronic. suspect multifactorial in etiology given patient's history of alcohol abuse and lung disease * Sodium 118 on arrival * Patient was seen in consultation by nephrology * Sodium improved at appropriate rate with 1500 mL fluid restriction * Patient was started on demeclocycline 150 mg q.i.d. per Nephrology recommendations and will continue as an outpatient * TSH and a.m. cortisol within normal limits. * Repeat sodium in 1 week to ensure continued improvement and outpatient follow- up with Nephrology (2) COVID: Code(s): U07.1 - COVID-19 Status: Acute Assessment and Plan: COVID PCR positive on 02/04/2022 * patient had no oxygen requirement and therefore no indication for steroids or antivirals * supportive care provided * isolation precautions implemented * maintained adequate O2 sats during admission * Patient completed COVID-19 vaccination, unclear if received booster (3) Hypotension: Code(s): I95.9 - Hypotension, unspecified Status: Acute Assessment and Plan: Resolved. Blood pressures were initially somewhat soft in the 90/100 systolic * Blood pressure stabilized * Narcotics and other blood pressure lowering medications were avoided during admission (4) Alcohol abuse: Code(s): F10.10 - Alcohol abuse, uncomplicated Status: Acute Assessment and Plan: patient endorses drinking 3-4 beers per day * monitored with CIWA protocol during admission. Patient had no signs of alcohol withdrawal symptoms * continue thiamine and folic acid * resources for alcohol cessation provided (5) Tobacco abuse: Code(s): Z72.0 - Tobacco use Status: Acute Assessment and Plan: patient has cut back to 1 pack every 5 days * nicotine patch applied during admission * patient was educated on smoking cessation but at this time would benefit on focusing on alcohol reduction (6) Fall: Code(s): W19.XXXA - Unspecified fall, initial encounter Status: Acute Assessment and Plan: Patient suffered fall at home. No precipitating symptoms. Denies hitting head or LOC. * fall precautions implemented * participated in PT/OT during admissions and had no ongoing therapy requiremen ts (7) Lung mass: Code(s): R91.8 - Other nonspecific abnormal finding of lung field Status: Acute Assessment and Plan: patient being evaluated for lung mass. He is s/p partial left pneumonectomy, however left lung mass remains on CXR this admission. * He is maintaining adequate oxygen saturations on room air * Patient is established with Oncology who is monitoring this. Spoke with patient's brother who is working on scheduling follow-up appointment. DS: Summary Hospital Course Hospital Course: Date of admission: 02/04/2022 Date of discharge: 02/08/2022 Greg Leslie is a 61-year-old male with a history of alcohol abuse, tobacco abuse, chronic hyponatremia, history of partial left pneumonectomy secondary to possible lung cancer who presented to the emergency department on 02/04/2022 after suffering a mechanical fall at home. No precipitating symptoms and no loss of consciousness. On presentation to the ED, his blood pressure was 99/66, arcadio
--- NOTE | 2022-02-08 12:22 | PM.DS ---
DS: Admitting Diagnosis Discharge Date 02/08/2022 Admitting Diagnosis Hyponatremia DS: Discharge Diagnosis Discharge Diagnosis (1) Acute hyponatremia: Code(s): E87.1 - Hypo-osmolality and hyponatremia Status: Acute Assessment and Plan: Acute on chronic. suspect multifactorial in etiology given patient's history of alcohol abuse and lung disease Sodium 118 on arrival Patient was seen in consultation by nephrology Sodium improved at appropriate rate with 1500 mL fluid restriction Patient was started on demeclocycline 150 mg q.i.d. per Nephrology recommendations and will continue as an outpatient TSH and a.m. cortisol within normal limits. Repeat sodium in 1 week to ensure continued improvement and outpatient follow-up with Nephrology (2) COVID: Code(s): U07.1 - COVID-19 Status: Acute Assessment and Plan: COVID PCR positive on 02/04/2022 patient had no oxygen requirement and therefore no indication for steroids or antivirals supportive care provided isolation precautions implemented maintained adequate O2 sats during admission Patient completed COVID-19 vaccination, unclear if received booster (3) Hypotension: Code(s): I95.9 - Hypotension, unspecified Status: Acute Assessment and Plan: Resolved. Blood pressures were initially somewhat soft in the 90/100 systolic Blood pressure stabilized Narcotics and other blood pressure lowering medications were avoided during admission (4) Alcohol abuse: Code(s): F10.10 - Alcohol abuse, uncomplicated Status: Acute Assessment and Plan: patient endorses drinking 3-4 beers per day monitored with CIWA protocol during admission. Patient had no signs of alcohol withdrawal symptoms continue thiamine and folic acid resources for alcohol cessation provided (5) Tobacco abuse: Code(s): Z72.0 - Tobacco use Status: Acute Assessment and Plan: patient has cut back to 1 pack every 5 days nicotine patch applied during admission patient was educated on smoking cessation but at this time would benefit on focusing on alcohol reduction (6) Fall: Code(s): W19.XXXA - Unspecified fall, initial encounter Status: Acute Assessment and Plan: Patient suffered fall at home. No precipitating symptoms. Denies hitting head or LOC. fall precautions implemented participated in PT/OT during admissions and had no ongoing therapy requirements (7) Lung mass: Code(s): R91.8 - Other nonspecific abnormal finding of lung field Status: Acute Assessment and Plan: patient being evaluated for lung mass. He is s/p partial left pneumonectomy, however left lung mass remains on CXR this admission. He is maintaining adequate oxygen saturations on room air Patient is established with Oncology who is monitoring this. Spoke with patient's brother who is working on scheduling follow-up appointment. DS: Summary Hospital Course Hospital Course: Date of admission: 02/04/2022 Date of discharge: 02/08/2022 Greg Leslie is a 61-year-old male with a history of alcohol abuse, tobacco abuse, chronic hyponatremia, history of partial left pneumonectomy secondary to possible lung cancer who presented to the emergency department on 02/04/2022 after suffering a mechanical fall at home. No precipitating symptoms and no loss of consciousness. On presentation to the ED, his blood pressure was 99/66, additional vital signs stable, sodium was 122, chloride 86, CO2 18, additional laboratory workup unremarkable, COVID PCR positive, knee x-ray with no acute findings, CXR with evidence of known lung mass, head CT with no acute findings and lumbar spine CT with no fracture and evidence of moderate spondylosis. Patient was admitted to the hospitalist service for further evaluation and management and was seen in consultation by nephrology. Please see above for further
[2022-02-08 13:11] LABS: Osmolality, Urine 505 mOsm/kg (50-1200)
[2022-02-08 17:27] LABS: Kappa\\Lambda Light Chains 1.01 (0.26-1.65); Lambda Light Chain 44.4 mg/L (5.7-26.3)
[2022-02-10 17:54] LABS: Chloride Rand Ur 71 mmol/L (32-290); Chloride/Creatinine Rand Ur 67 (23-275); Creatinine Random Urine 106 mg/dL (20-320)
[2022-02-10 22:23] LABS: Total Protein/Creatinine Ratio 264 mg/g creat (25-148)
== END 2022-02-08 13:50 | disposition home or self-care (01) | DRG 640 ==
LOC: ANHED 16:34 → ANH3MEDSUR 18:17
PROVIDERS: Internal Medicine Nephrology; Physician Assistant; Admitting Provider Student in an Organized Health Care Education/Training Program; Emergency Provider Emergency Medicine; Visit Provider Family Medicine
DX: E87.1 Hypo-osmolality and hyponatremia; U07.1 COVID-19; I95.9 Hypotension, unspecified; R91.8 Other nonspecific abnormal finding of lung field; F17.210 Nicotine dependence, cigarettes, uncomplicated; F10.10 Alcohol abuse, uncomplicated; M17.0 Bilateral primary osteoarthritis of knee; S80.02XA Contusion of left knee, initial encounter; S80.01XA Contusion of right knee, initial encounter; W01.0XXA Fall on same level from slipping, tripping and stumbling without subsequent striking against object, initial encounter; Z79.899 Other long term (current) drug therapy; Z90.2 Acquired absence of lung [part of]
CPT/HCPCS: 36415; 70450; 71045; 72131; 73564; 80048; 80053; 80307; 81001; 81050; 82436; 82533; 82570; 82948; 83605; 83735; 83883; 83930; 83935; 84155; 84156; 84165; 84166; 84295; 84300; 84443; 84484; 85025; 85027; 85055; 85610; 85730; 86334; 86335; 87040; 87636; 93005; 96360; 96374; 96375; 97161; 97165; 99285; A9270; G0378; J1650; J3411; J7030; J7040

== ENCOUNTER 2022-12-16 12:58 | Outpatient (CLI) | payer OTHER, SELFPAY ==
[2022-12-16 13:41] LABS: Basophils Absolute Auto 0.2 K/mm3 (0.0-0.1); Basophils Percent Auto 1.7 % (0.2-1.2); Eosinophils Absolute Auto 0.3 K/mm3 (0-0.3); Eosinophils Percent Auto 3.8 % (0-4.4); Hematocrit 39.4 % (42.0-52.0); Hemoglobin 12.9 g/dL (14.0-18.0); Immature Granulocyte Absolute 0.05 K/mm3 (0.00-0.031); Immature Granulocyte Percent A 0.6 % (0-0.5); Lymphocytes Absolute Auto 1.66 K/mm3 (0.9-3.2); Lymphocytes Percent Auto 18.8 % (18.3-44.2); Mean Corpuscular HGB Conc 32.7 g/dl (32-36); Mean Corpuscular Hemoglobin 30.1 pg (26-34); Mean Corpuscular Volume 91.8 fl (80-100); Mean Platelet Volume 8.4 fl (7.4-10.4); Monocytes Percent Auto 11.3 % (2.6-8.5); Neutrophils Absolute Auto 5.6 K/mm3 (1.3-6.7); Neutrophils Percent Auto 63.8 % (45.5-73.1); Platelet Count Result 418 k/mm3 (150-375); Red Blood Count 4.29 M/mm3 (4.6-6.20); Red Cell Distribution Width 13.3 % (11.5-14.5); White Blood Count 8.8 K/mm3 (4.5-10.0)
[2022-12-16 13:51] LABS: Prothrombin Time 13.8 Seconds (11.1-14.7)
[2022-12-16 13:52] LABS: Sodium 122 mmol/L (137-145)
== END 2022-12-16 12:59 | disposition home or self-care (01) ==
LOC: ANHSURGERY 13:02
PROVIDERS: Anesthesiology; PCP Hospitalist; Visit Provider Surgery
DX: C34.90 Malignant neoplasm of unspecified part of unspecified bronchus or lung (principal); E87.1 Hypo-osmolality and hyponatremia; Z01.818 Encounter for other preprocedural examination
CPT/HCPCS: 36415; 84295; 85025; 85610; 85730

== ENCOUNTER 2022-12-21 00:58 | Day surgery (SDC) | payer OTHER, SELFPAY ==
[2022-12-14 09:59] VITALS: BMI 19.2
--- NOTE | 2022-12-14 10:05 | PC.NURSE ---
Report to the Outpatient Waiting Room, entrance under the green pavilion located off [facility], at time 12:30 on date 12/21/22. Planned Procedure Time: 2:30. Time changes happen often and if your time is changed the preop area will call you the afternoon before. - You and your visitor will be asked to self-screen and do not enter if you have any COVID symptoms. - A mask is optional within the hospital at this time. Patients may have clear liquids (water, carbonated beverages, clear teas, apple juice) until 3 hours prior to surgery with a maximum of 20 ounces. - No food from midnight until time of surgery Take the following medications with a SIP of water the morning of surgery: NONE DO NOT STOP ANY OF YOUR OTHER PRESCRIPTION MEDICATIONS PRIOR TO SURGERY ?EXCEPT THE FOLLOWING Medications to discontinue per physician: N/A Date to take last dose: N/A Please no make-up, nail maltese, hairspray, perfume, deodorant, or body powder the day of surgery. No jewelry (including any body piercings) or valuables the day of surgery, leave them at home. Please take a shower or bath the night before, or the morning of, surgery with an antibacterial soap. Wear comfortable, loose fitting clothing. - Jewelry must be removed prior to entering the operating room. Rings and piercings that are not removed may be cut off. - The hospital will not accept responsibility for valuables. - Please leave all valuables, including medications, at home the day of surgery. If you are going home after surgery, a licensed city bus driver must drive you home. - NO public transportation without another adult if you receive anesthesia. - We recommend that an adult stay with you for 24 hours following discharge. - We also recommend that you do not drive, make important decision, drink alcoholic beverages, or take any drugs that were not prescribed by your health care provider for at least 24 hours after your discharge time. Follow any additional instructions given to you from your surgeon. If you or anyone in your household have experienced Covid symptoms in the past week, please notify your surgeon or the nurse liaison at the phone number below for possible testing. Telephone instructions given to NANO DEL CID and asked if any additional questions and then verbalized understanding. Patient advised to call surgeon office or pre surgery nurse liaison [phone] if any additional questions.
--- NOTE | ~2022-12-21 | XR_ITS ---
EXAMINATION: XR fl guide central line place DATE: 12/21/2022 14:20 CDT INDICATION: INSERT RASHMI CATH LEFT SUBCLAVIAN . TECHNIQUE: 1 fluoroscopic image of the chest were obtained during left subclavian Port-A-Cath inserti on performed by the surgeon. I was not present in the operating room. Fluoroscopy exposure time was 4 2 seconds. Air Kerma 6.14 mGy. DAP [id number] mGym2. COMPARISON: None FINDINGS: A single fluoroscopic image demonstrates a central line terminating in the distal SVC. IMPRESSION: Fluoroscopic documentation of left subclavian Port-A-Cath insertion. Please refer to the operative no te for complete procedural details . Reviewed, dictated and finalized at location K. IMPRESSION: Fluoroscopic documentation of left subclavian Port-A-Cath insertion. Please ref er to the operative note for complete procedural details .
--- NOTE | ~2022-12-21 | XR_ITS ---
EXAMINATION: XR chest port-a-cath/central Exam Date/Time: 12/21/2022 15:35 CDT HISTORY: INSERT RASHMI CATH LEFT SIDE Comparison: 02/04/2022. RESULT: Lines, tubes, and devices: Implanted left chest port terminating in the SVC. Lungs and pleura: Near-complete opacification of the left lung, with increased volume loss and left hemidiaphragm elevation. Diffuse reticular opacities. Right upper lobe scar. Small volume right pleur al fluid. No definite pneumothorax. Cardiomediastinal silhouette: Stable. Other: No acute osseous or upper abdominal finding. IMPRESSION: Near complete left lung opacification with volume loss, likely largely due to atelectasis. Infection is not excluded. Small left pleural effusion. Reviewed, dictated and finalized at location K. IMPRESSION: Near complete left lung opacification with volume loss, likely largely due to a telectasis. Infection is not excluded. Small left pleural effusion.
[2022-12-21 12:47] LABS: Sodium 130 mmol/L (137-145)
[2022-12-21 13:49] VITALS: BP 112/69; PULSE 100; RESP 14; TEMP 35.7; O2SAT 99
[2022-12-21] MEDS: LACTATED RINGERS 1,000 ML 30 ML IV CONT (14:11)
--- NOTE | 2022-12-21 14:19 | PM.IMHP ---
H&P: HPI History of Present Illness Date/Time: 12/21/22 14:19 Chief Complaint: Left lung squamous cell CA Narrative: Pt presents for placement of a portacatheter for chemo tx. He has hx of left lung squamous cell CA. S/P left lung resection. No prior hx port or central line placement. Review of Systems Review of Systems: The remainder of the review of systems to include constitutional, HEENT, cardiovascular, respiratory, GI, , integumentary, musculoskeletal, endocrine, immunologic, hematologic, psychiatric, and neurologic are all negative except for which is mentioned above in the HPI. 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 He lives alone. He is single. He smokes a pack a day and has done so for about 35-40 years. He drinks 6 beers a day. He smokes marijuana once a week. No history of IV drug use. Surrogate decision maker: Kale Leslie, brother. Code status: Full code. Smoking packs per day: 2.5 Smoking cigarettes per day: 50.0 Years smoked: 35 Smoking pack-years: 87.50 Smoking status: Current every day smoker Tobacco type: cigarettes Additional smoking assessment comments: DOWN TO HALF A PACK A DAY Alcohol intake: current Drinks per week: 35 Alcohol use details: 5 BEERS/DAY Substance use: current Substance use type: marijuana Other substance usage details: occasional Last use: yesterday Lack of Transportation: No Lack of Food: Never True Current Housing: I Have Housing Concerned About Future Housing: No Difficulty Paying Gas/Electric Bills: No Difficulty Paying for Meds: YES Currently Unemployed: No Education: High School Diploma/GED Difficulty w/ Childcare or Family Care: No Living arrangements: alone Additional living arrangements comments: Lives in his own home in [place]. Occupation/Education: retired Additional occupation/education comments: [employer]. Gender identity (if verbalized by the patient): Male Sexual Orientation (if Verbalized by the Patient): Straight or Heterosexual Spiritual care concerns: No Agree to blood products: Yes Meds Home Medications and Allergies Home Medications Medication Instructions Recorded Confirmed Type dexamethasone 4 mg tablet 4 mg PO ONCE 12/14/22 12/14/22 History ondansetron HCl 8 mg tablet 8 mg PO Q8H PRN Nausea 12/14/22 12/14/22 History pantoprazole 40 mg tablet,delayed 40 mg PO BID 12/14/22 12/14/22 History release prochlorperazine maleate 10 mg 10 mg PO DAILY 12/14/22 12/14/22 History tablet sodium chloride 1,000 mg soluble 1,000 mg PO QID 12/14/22 12/14/22 History tablet Allergies Allergy/AdvReac Type Severity Reaction Status Date / Time No Known Allergies Allergy Verified 12/21/22 14:11 Vital Signs Vital Signs - 24 hr 12/21/22 13:49 Temperature 35.7 C L Pulse Rate 100 Respiratory Rate 14 Blood Pressure 112/69 Pulse Oximetry 99 Oxygen Delivery Room Air Exam Const: General: comfortable and no acute distress HENMT: Ears: TM's normal bilaterally Face/Nose/Sinus: Normal nares present Mouth: Yes moist mucous membranes Eyes: General: appearance normal, both eyes and all related structures Sclera: sclerae normal Pupils: Equal, round and reactive pupils p
--- NOTE | 2022-12-21 14:25 | WPDHPUPDATE1 ---
History and Physical Update Update Date/Time: 12/21/22 14:25 History and Physical has been reviewed, including an updated exam of the patient. There are NO changes in the patient's condition. Risks, benefits, and alternatives have been discussed and questions answered. Patient agrees to proceed with procedure.
[2022-12-21] MEDS: ceFAZolin 2 GM/D5W 50 ML 2 GM/50 ML BAG IVPB (14:29)
[2022-12-21] MEDS: BUPivacaine HCL 0.5% PF 30 ML VIAL 10 ML INFILTRATE (15:05)
[2022-12-21] MEDS: LIDO 1%/EPINEPHRINE 1:100,000 20 ML VIAL 10 ML INFILTRATE (15:06)
[2022-12-21] MEDS: HEPARIN SODIUM 5,000 UNITS/ML VIAL 5000 UNITS IV PUSH (15:12)
[2022-12-21] MEDS: HEPARIN SODIUM 5,000 UNITS/ML VIAL 1000 UNITS IRRIGATION (15:13)
--- NOTE | 2022-12-21 15:26 | W.PM.PROC2 ---
Procedure Note - Detailed Date of Procedure 12/21/22 Pre-op Diagnosis Left squamous cell lung cancer Post-op Diagnosis Same Procedure Performed Placement of left subclavian vein single-lumen power port a catheter with intraoperative fluoroscopy. Surgeon Tyson Leyva MD [employer] Anshu Todd SA Anesthesia MAC Indications Patient is a 62-year-old gentleman who has squamous cell cancer of the left lung. He presents now for placement of a power port administration of chemotherapy. Findings Nonsignificant Description of Procedure Patient is brought to the operating room was placed supine position and then IV sedation was administered by anesthesia. The bilateral anterior neck and chest was then prepped and draped usual sterile fashion. Time-out was then performed correctly identifying the patient as well as procedure to be performed and verifying he was given perioperative IV antibiotics. I 1st started by placing the the patient in the head-down Trendelenburg position. 1% lidocaine mixed with 0.5% Marcaine was then used to anesthetize the area between the 2 heads of the left sternocleidomastoid muscle. Three attempts were then made to try to cannulate the left internal jugular vein with the 18gauge spinal needle. This was unsuccessful. At this point I went ahead and abandon the internal jugular vein approach and switched to the left subclavian vein approach. Again same local anesthetic mixture was then used to inject and anesthetize the left upper anterior chest just below the medial 3rd of the left clavicle. I then made a transverse incision this area with a scalpel and then dissected down through the subcutaneous tissue electrocautery. The subcutaneous port pocket below the incision was then created with electrocautery and blunt finger dissection. I then utilized the long 18gauge needle to cannulate the left subclavian vein on the 2nd pass. There was prompt return of dark venous appearing blood. A guidewire was then advanced through the needle into the left subclavian vein and down into the superior vena cava. Intraoperative fluoroscopy was then used to confirm the downward placement of the tip of the guidewire. I then proceeded to advance a dilator breakaway sheath over the guidewire. The guidewire and dilator were removed leaving the sheath in place. A 9.6 Thai single-lumen catheter was then advanced through the sheath into the left subclavian vein and subsequently down into the right atrium of the heart. The sheath was then torn away leaving the catheter in place. Then utilizing antral fluoroscopy I pulled back on the catheter until the tip was in the distal superior vena cava. The catheter was then cut to the appropriate length the skin level and then attached to the Power Port. The port was then secured in the subcutaneous port pocket on 3 sides utilizing a 3-0 Prolene suture. I then accessed the port and it frandy back blood easily and then was flushed with heparinized saline solution. The incision was then irrigated sterile saline solution then closed utilizing interrupted 3-0 Vicryl sutures in the subcutaneous tissues. Percutaneously I then accessed the port 1 last time and again frandy back blood easily and then was flushed with 5000units of IV heparin. The incision was then closed utilizing a running subcuticular 4-0 Monocryl suture. Incision was then cleaned and then skin glue was applied. The patient tolerated the procedure well no complications. All sponges, needles, and instrument counts were correct at the end procedure. EBL was _20__cc. The patient was awakened and taken to recovery in stable and satisfactory condition. Postprocedure chest x-ray is pending at the time of this dictation. Implants Bard Power Port attached to 9.6 Thai single-lumen catheter. Estimated Blood Loss 20 Drains No Packing No Pathology None sent Condition Stable Disposition PACU [facility] Billing Surgery - Charge Forward: Surgery Billing
[2022-12-21 15:28] VITALS: BP 116/77; PULSE 96; RESP 16; O2SAT 100
--- NOTE | 2022-12-21 15:51 | SUR.PHASEII ---
DR DECKER NOTIFIED OF RADIOLOGY RESULTS, OKAY TO ADVANCE DIET AND D/C PATIENT
[2022-12-21 15:55] VITALS: BP 105/86; PULSE 93; RESP 18; O2SAT 97
== END 2022-12-21 16:18 | disposition home or self-care (01) ==
PROVIDERS: Anesthesiology; PCP Hospitalist; Visit Provider Surgery
PROC: (CPT 36561; principal; 2022-12-21 14:30)
DX: C34.92 Malignant neoplasm of unspecified part of left bronchus or lung (principal); F17.210 Nicotine dependence, cigarettes, uncomplicated; F12.90 Cannabis use, unspecified, uncomplicated
CPT/HCPCS: 36561; 36415; 77001; 84295; 85025; 85610; 85730; J0690; J1644; J2704; J3010; J7030; J7120